=== PATIENT | female | born 1990 | race Caucasian/White ===

== ENCOUNTER 2018-05-19 18:41 | Emergency (ER) | payer MEDICAID, SELFPAY ==
[2018-05-19 18:48] VITALS: BP 128/83; PULSE 100; RESP 18; TEMP 37.2; O2SAT 100
--- NOTE | 2018-05-19 18:58 | W.ED.GENAD ---
Discharge Plan Disposition Patient Disposition: HOME Condition: Improving Discharge Details Chief Complaint: Sorethroat Clinical Impression: Acute streptococcal pharyngitis Primary Care Provider: Unknown,Unknown ED Provider: Rafael Mcfarland Home Meds and New Rx's Prescriptions: New penicillin V potassium 500 mg tablet 500 mg PO TID 10 Days Qty: 30 RF: 0 No Action vit 93-iron fum-folic [ Formula] 1 EACH tablet 1 ea PO DAILY RF: 0 clonazepam 0.5 mg tablet 0.25 mg PO BID PRN (Reason: anxiety) Qty: 20 RF: 0 Discharge Instructions Instructions: Pharyngitis (ED) Additional Instructions: Small, frequent sips of fluids to maintain hydration. Penicillin as prescribed. Tylenol and/or ibuprofen as needed for discomfort. Return if your symptoms worsen, you are unable to swallow, or any other acute concern Medical Decision Making 27-year-old female presents with 2 days of sore throat. She is afebrile, tolerating liquids and solids by mouth, no change to voice or drooling. Her rapid strep test is positive. Will treat with a course of penicillin. She may continue to breast-feed. Stable for discharge to home HPI General Mode of arrival: ambulatory. Date/Time Provider Initiated Documentation: 05/19/18 18:48. Limitations to Documentation: no limitations. Information obtained by: patient. History of Present Illness 27 year old F presents to the emergency department with the chief complaint of Sore throat times 2-day. No change to voice, no, described as moderate, Quality is described as aching, and is localized to the neck. Patient reports no radiation. Patient started experiencing this day(s) and it has been constant. No relieving factors improve symptom(s), No exacerbating factors reported . Patient notes denies fever/chills and shortness of breath. Related Data Home Medications Medication Instructions Recorded Confirmed vit 93-iron fum-folic 1 ea PO DAILY 01/05/17 05/19/18 [ Formula] clonazepam 0.5 mg tablet 0.25 mg PO BID PRN #20 tab 04/28/18 05/19/18 penicillin V potassium 500 mg PO TID 10 Days #30 tab 05/19/18 Previous Rx's Medication Instructions Recorded clonazepam 0.5 mg tablet 0.25 mg PO BID PRN #20 tab 04/28/18 penicillin V potassium 500 mg PO TID 10 Days #30 tab 05/19/18 Allergies Allergy/AdvReac Type Severity Reaction Status Date / Time cefaclor [From Ceclor] Allergy Mild unsure Unverified 05/19/18 18:55 General Stated Complaint: Sorethroat MAHENDRA: 4 Review of Systems Review of Systems 4 systems reviewed and otherwise neg PFSH Family History Mother Depression Father Essential hypertension Bipolar disorder Sister Asthma Grandfather Cerebrovascular accident Grandmother Diabetes Grandfather Prostate cancer Cancer of kidney Grandmother Parkinsons disease Medical History Anxiety (Chronic) Bipolar disorder in remission PCOS (polycystic ovarian syndrome) Social History household members: children and other details: son Akhil current occupation: works for [employer] Smoking/Tobacco Use Status: Never Surgical History section (07/27/17) Female Reproductive History Menstrual control method: copper IUCD Exam Narrative Exam Narrative: GEN: awake, alert, oriented 3. Pleasant, well groomed, interactive. HEAD: Normocephalic, atraumatic ENT: Mucous membranes moist, oropharynx with erythematous tonsillar pillars, no asymmetry. White exudate present. Uvula is midline. EYES: PERRL, EOMI NECK: Full ROM, no JEN, no menigismus CHEST/RESP: Nontender, clear to auscultation bilateral, no wheeze/rhonchi/rales CARDIOVASCULAR: RRR, no murmur, rub kwan. 2+ Rad pulse bilateral. Not tachycardic at the time of my exam ABDOMEN: Soft, nontender, no mass. +Bowel sounds EXT: Full ROM, no edema, no rash Neuro: Grossly normal neurologic exam, conversant, interactive. Psych: Speech fluent, thoughts congruent, affect normal GEN: awake, alert, oriented 3. Pleasant, well groomed, interactive. Course Vital Signs Temperature 37.2 C 05/19/18 18:48 Pulse 100 H 05/19/18 18:48 Respiratory Rate 18 05/19/18 18:48 Blood Pressure 128/83 05/19/18 18:48 Pulse Oximetry 100 05/19/18 18:48 Temperature 37.2 C 05/19/18 18:48 Temperature Source Temporal Artery Scan 05/19/18 18:48 Pulse 100 H 05/19/18 18:48 Respiratory Rate 18 05/19/18 18:48 Respiratory Effort Non-Labored 05/19/18 18:52 Blood Pressure 128/83 05/19/18 18:48 Blood Pressure Position Sitting 05/19/18 18:48 Pulse Oximetry 100 05/19/18 18:48 Oxygen Delivery Method Room Air 05/19/18 18:48 Oxygen Flow Rate 0 05/19/18 18:48 Pain Level 8 05/19/18 18:48 Lab/Test Results Lab/Test Results: POC Strep Test-LINDA(Rapid) Start: 05/19/18 18:48 Freq: .Rapid Strep Test Status: Active Protocol: Document 05/19/18 18:53 SGL (Rec: 05/19/18 18:53 SGL [id number]) Strep test-LINDA(Rapid)-POC POC-Strep test-LINDA (Rapid) Positive POC-Strep test-LINDA (Rapid) Positive
--- NOTE | 2018-05-19 19:01 | ED.GENADUL_ITS ---
Discharge Plan Disposition Patient Disposition: HOME Condition: Improving Discharge Details Chief Complaint: Sorethroat Clinical Impression: Acute streptococcal pharyngitis Primary Care Provider: Unknown,Unknown ED Provider: Rafael Mcfarland Home Meds and New Rx's Prescriptions: New penicillin V potassium 500 mg tablet 500 mg PO TID 10 Days Qty: 30 RF: 0 No Action vit 93-iron fum-folic [ Formula] 1 EACH tablet 1 ea PO DAILY RF: 0 clonazepam 0.5 mg tablet 0.25 mg PO BID PRN (Reason: anxiety) Qty: 20 RF: 0 Discharge Instructions Instructions: Pharyngitis (ED) Additional Instructions: Small, frequent sips of fluids to maintain hydration. Penicillin as prescribed. Tylenol and/or ibuprofen as needed for discomfort. Return if your symptoms worsen, you are unable to swallow, or any other acute concern Medical Decision Making 27-year-old female presents with 2 days of sore throat. She is afebrile, tolerating liquids and solids by mouth, no change to voice or drooling. Her rapid strep test is positive. Will treat with a course of penicillin. She may continue to breast-feed. Stable for discharge to home HPI General Mode of arrival: ambulatory . Date/Time Provider Initiated Documentation: 05/19/18 18:48 . Limitations to Documentation: no limitations . Information obtained by: patient . History of Present Illness 27 year old F presents to the emergency department with the chief complaint of Sore throat times 2-day. No change to voice, no, described as moderate, Quality is described as aching, and is localized to the neck. Patient reports no radiation. Patient started experiencing this day(s) and it has been constant. No relieving factors improve symptom(s), No exacerbating factors reported . Patient notes denies fever/chills and shortness of breath. Related Data Home Medications Medication Instructions Recorded Confirmed vit 93-iron fum-folic 1 ea PO DAILY 01/05/17 05/19/18 [ Formula] clonazepam 0.5 mg tablet 0.25 mg PO BID PRN #20 tab 04/28/18 05/19/18 penicillin V potassium 500 mg PO TID 10 Days #30 tab 05/19/18 Previous Rx's Medication Instructions Recorded clonazepam 0.5 mg tablet 0.25 mg PO BID PRN #20 tab 04/28/18 penicillin V potassium 500 mg PO TID 10 Days #30 tab 05/19/18 Allergies Allergy/AdvReac Type Severity Reaction Status Date / Time cefaclor [From Ceclor] Allergy Mild unsure Unverified 05/19/18 18:55 General Stated Complaint: Sorethroat MAHENDRA: 4 Review of Systems Review of Systems 4 systems reviewed and otherwise neg PFSH Family History Mother Depression Father Essential hypertension Bipolar disorder Sister Asthma Grandfather Cerebrovascular accident Grandmother Diabetes Grandfather Prostate cancer Cancer of kidney Grandmother Parkinsons disease Medical History Anxiety (Chronic) Bipolar disorder in remission PCOS (polycystic ovarian syndrome) Social History household members: children and other details: son Akhil current occupation: works for [employer] Smoking/Tobacco Use Status: Never Surgical History section (07/27/17) Female Reproductive History Menstrual control method: copper IUCD Exam Narrative Exam Narrative: GEN: awake, alert, oriented 3. Pleasant, well groomed, interactive. HEAD: Normocephalic, atraumatic ENT: Mucous membranes moist, oropharynx with erythematous tonsillar pillars, no asymmetry. White exudate present. Uvula is midline. EYES: PERRL, EOMI NECK: Full ROM, no JEN, no menigismus CHEST/RESP: Nontender, clear to auscultation bilateral, no wheeze/rhonchi/rales CARDIOVASCULAR: RRR, no murmur, rub kwan. 2+ Rad pulse bilateral. Not tachycardic at the time of my exam ABDOMEN: Soft, nontender, no mass. +Bowel sounds EXT: Full ROM, no edema, no rash Neuro: Grossly normal neurologic exam, conversant, interactive. Psych: Speech fluent, thoughts congruent, affect normal GEN: awake, alert, oriented 3. Pleasant, well groomed, interactive. Course Vital Signs Temperature 37.2 C 05/19/18 18:48 Pulse 100 H 05/19/18 18:48 Respiratory Rate 18 05/19/18 18:48 Blood Pressure 128/83 05/19/18 18:48 Pulse Oximetry 100 05/19/18 18:48 Temperature 37.2 C 05/19/18 18:48 Temperature Source Temporal Artery Scan 05/19/18 18:48 Pulse 100 H 05/19/18 18:48 Respiratory Rate 18 05/19/18 18:48 Respiratory Effort Non-Labored 05/19/18 18:52 Blood Pressure 128/83 05/19/18 18:48 Blood Pressure Position Sitting 05/19/18 18:48 Pulse Oximetry 100 05/19/18 18:48 Oxygen Delivery Method Room Air 05/19/18 18:48 Oxygen Flow Rate 0 05/19/18 18:48 Pain Level 8 05/19/18 18:48 Lab/Test Results Lab/Test Results: POC Strep Test-LINDA(Rapid) Start: 05/19/18 18: 48 Freq: .Rapid Strep Test Status: Active Protocol: Document 05/19/18 18:53 SGL (Rec: 05/19/18 18:53 SGL [id number]) Strep test-LINDA(Rapid)-POC POC-Strep test-LINDA (Rapid) Positive POC-Strep test-LINDA (Rapid) Positive
[2018-05-19 19:08] VITALS: BP 128/83; PULSE 100; RESP 18; TEMP 37.2; O2SAT 100
[2018-05-19] MEDS: Penicillin V POTASSIUM 500 MG TAB PO (19:09)
== END 2018-05-19 19:07 | disposition home or self-care (01) ==
LOC: ER 19:52
PROVIDERS: Emergency Provider Emergency Medicine; PCP Nurse Practitioner Adult Health
DX: J02.0 Streptococcal pharyngitis (principal)
CPT/HCPCS: 87880; 99283

== ENCOUNTER 2018-06-29 02:25 | Outpatient (CLI) | payer MEDICAID, SELFPAY ==
[2018-06-29 08:30] LABS: HCT 39.2 % (36.0-46.0); HGB 12.8 g/dL (12.0-15.5); Mean Corp. HGB Concentration 32.7 g/dL (32.0-36.0); Mean Corpuscular Hemoglobin 29.4 pg (27.0-33.0); Mean Corpuscular Volume 89.9 fL (80-95); Platelet Count 271 x1000/uL (130-400); RBC 4.36 m/cumm (4.00-5.20); RBC Distribution Width 13.3 % (11.7-14.6); White Blood Cell Count 7.65 k/cumm (4.4-10.8)
[2018-06-29 10:37] LABS: TSH (W/Ref FT4) 2.29 uIU/mL (0.358-3.74)
== END 2018-06-29 02:45 ==
PROVIDERS: PCP Nurse Practitioner Adult Health; Visit Provider Nurse Practitioner Family
DX: R63.5 Abnormal weight gain (principal); F41.9 Anxiety disorder, unspecified; R07.89 Other chest pain; R59.0 Localized enlarged lymph nodes
CPT/HCPCS: 36415; 85027; 84443

== ENCOUNTER 2018-09-21 15:15 | Emergency (ER) | payer OTHER, SELFPAY ==
[2018-09-21] VITALS (11 sets, daily range): BP systolic 122–143; BP diastolic 68–78; PULSE 84–112; RESP 14–25; TEMP 36.8–37.2; O2SAT 98–100
--- NOTE | 2018-09-21 15:23 | W.ED.GENAD ---
Discharge Plan Disposition Patient Disposition: HOME Discharge Details Chief Complaint: Chest Pain Clinical Impression: Chest pain, Mediastinal abnormality, Hypokalemia Primary Care Provider: Leatha Briseno ED Provider: Peter Chowdary Home Meds and New Rx's Prescriptions: No Action No Known Home Meds RF: 0 Discharge Instructions Instructions: Chest Pain (ED), Hypokalemia (ED) Additional Instructions: Please rest at home over the next few days. No exertional activities until cleared by a healthcare provider. You should have a stress test performed as soon as possible and ideally within the next 72 hours. Please contact your primary care physician to arrange follow-up. Return to the ER for any worsening or new concerning symptoms. Stand Alone Forms: Work Release Referrals: Leatha Briseno, [employer] [Primary Care Provider] - Medical Decision Making 15:27 --28-year-old female, otherwise healthy, presents with severe chest pain. Chest pain worse with movement and pleuritic in nature. Tachycardic. Saturating well and no respiratory. Screening ECG reviewed and interpreted by me: Sinus tachycardia 105 bpm, normal axis, S1 every 3 T3 are present. Plan to check troponin. Consider PE: Moderate Wells criteria. Plan to obtain CT of the chest. 18:00 --initial labs reviewed and troponin negative. CT of the chest interpreted by radiology: IMPRESSION: 1. Soft tissue attenuation in the anterior mediastinum greater than expected for age. Lymphoma or possible thymoma not excludable. 2. No evidence for pulmonary embolus. Results were reviewed with the patient. Patient advised to followup with pcp re: soft tissue attenuation noted on CT. Patient reassessed and feeling better. Plan for delta trop. 19:45 -- Hypokalemia noted - treated with oral kdur. Second delta trop negative. Patient reassessed and improved. HR improved. I had a discussion with the patient about results. Plan is to have her follow-up with her primary care physician. Outpatient stress test was ordered to expedite outpatient treatment. Disposition decision was made weighing the risks and benefits of hospitalization versus outpatient treatment, the risk for further decompensation, and the patient's wishes. The patient was stable and requested discharge. Prior to discharge, my usual and customary return precautions were reviewed with the patient - this included follow-up instructions and reason to return to the emergency department if condition worsens, does not improve as expected, or other new concerns arise. HPI General Mode of arrival: EMS. Date/Time Provider Initiated Documentation: 09/21/18 15:21. Limitations to Documentation: no limitations. Information obtained by: patient and EMS. HPI Narrative: 28-year-old female presents with chief complaint of chest pain. Patient notes around 3 PM today she had sudden onset of chest pain. Pain started while she was at rest at work. Pain localized to anterior chest. It initially felt like someone was sitting on her chest and then became more of a stabbing sensation. Pain resolved and then returned shortly thereafter. Pain has persisted. Pain is worse with certain positions including lifting her left arm above her head. Pain is also worse when she takes a deep breath or coughs. Patient has no associated leg swelling or calf pain. No shortness of breath. Patient did experience diaphoresis and felt lightheaded with the onset of her pain. Related Data Home Medications Medication Instructions Recorded Confirmed Unknown [No Known Home Meds] 09/21/18 09/21/18 Allergies Allergy/AdvReac Type Severity Reaction Status Date / Time cefaclor [From Ceclor] Allergy Mild unsure Unverified 08/22/18 14:25 General Stated Complaint: Chest Pain MAHENDRA: 2 Review of Systems Review of Systems All systems reviewed & are unremarkable except as noted in HPI and below Cardiovascular Reports chest pain, Reports diaphoresis, Reports lightheadedness and Denies dyspnea Respiratory Denies dyspnea PFSH Medical History Anxiety (Chronic) Bipolar disorder in remission PCOS (polycystic ovarian syndrome) Surgical History section (07/27/17) Family History Mother Depression Father Essential hypertension Bipolar disorder Sister Asthma Grandfather Stroke Grandmother Diabetes Grandfather Prostate cancer Cancer of kidney Grandmother Parkinsons disease Social History Smoking/Tobacco Use Status: Never Drug use: Never Household members: children and other Details: son Akhil current occupation: works for [employer] Do you feel safe at home: Yes Do you feel safe in your relationship?: Yes Female Reproductive History Menstrual control method: copper IUCD Exam Const General: cooperative and no acute distress HENMT Head: normocephalic Mouth: moist mucous membranes Eyes Conjunctivae: normal conjunctivae Sclera: normal sclerae EOM: EOM intact bilaterally Neck Neck: trachea midline and supple Chest Chest: tenderness (left anterior chest) Resp Auscultation: clear to auscultation bilaterally, no rales, no rhonchi and no wheezes Cardio Jugular venous pressure: no JVD Rate: tachycardic Rhythm: regular rhythm Heart Sounds: no gallops, no murmurs and no rubs GI Palpation: soft, not firm, no guarding, no masses, not rigid and nontender Skin General skin exam: no rashes or lesions noted Neuro General: alert, awake and tone normal Extrem General: no edema Psych Appearance: grossly normal Mental Status: mental status grossly normal Speech and Movement: speech and movement normal Course Vital Signs Temperature 36.8 C 09/21/18 15:17 Pulse 108 H 09/21/18 15:17 Respiratory Rate 14 09/21/18 15:17 Blood Pressure 143/78 H 09/21/18 15:17 Pulse Oximetry 99 09/21/18 15:17 Temperature 36.8 C 09/21/18 15:17 Temperature Source Skin 09/21/18 15:17 Pulse 108 H 09/21/18 15:17 Respiratory Rate 14 09/21/18 15:17 Blood Pressure 143/78 H 09/21/18 15:17 Blood Pressure Position Sitting 09/21/18 15:17 Pulse Oximetry 99 09/21/18 15:17 Oxygen Delivery Method Room Air 09/21/18 15:17 Oxygen Flow Rate 0 09/21/18 15:17 Pain Level 8 09/21/18 15:17
--- NOTE | 2018-09-21 15:26 | ED.GENADUL_ITS ---
Discharge Plan Disposition Patient Disposition: HOME Discharge Details Chief Complaint: Chest Pain Clinical Impression: Chest pain, Mediastinal abnormality, Hypokalemia Primary Care Provider: Leatha Briseno ED Provider: Peter Chowdary Home Meds and New Rx's Prescriptions: No Action No Known Home Meds RF: 0 Discharge Instructions Instructions: Chest Pain (ED), Hypokalemia (ED) Additional Instructions: Please rest at home over the next few days. No exertional activities until cleared by a healthcare provider. You should have a stress test performed as soon as possible and ideally within the next 72 hours. Please contact your primary care physician to arrange follow-up. Return to the ER for any worsening or new concerning symptoms. Stand Alone Forms: Work Release Referrals: Leatha Briseno, [employer]PER[employer] [Primary Care Provider] - Medical Decision Making 15:27 --28-year-old female, otherwise healthy, presents with severe chest pain. Chest pain worse with movement and pleuritic in nature. Tachycardic. Saturating well and no respiratory. Screening ECG reviewed and interpreted by me: Sinus tachycardia 105 bpm, normal axis, S1 every 3 T3 are present. Plan to check troponin. Consider PE: Moderate Wells criteria. Plan to obtain CT of the chest. 18:00 --initial labs reviewed and troponin negative. CT of the chest interpreted by radiology: IMPRESSION: 1. Soft tissue attenuation in the anterior mediastinum greater than expected for age. Lymphoma or possible thymoma not excludable. 2. No evidence for pulmonary embolus. Results were reviewed with the patient. Patient advised to followup with pcp re: soft tissue attenuation noted on CT. Patient reassessed and feeling better. Plan for delta trop. 19:45 -- Hypokalemia noted - treated with oral kdur. Second delta trop negative. Patient reassessed and improved. HR improved. I had a discussion with the patient about results. Plan is to have her follow- up with her primary care physician. Outpatient stress test was ordered to expedite outpatient treatment. Disposition decision was made weighing the risks and benefits of hospitalization versus outpatient treatment, the risk for further decompensation, and the patient's wishes. The patient was stable and requested discharge. Prior to discharge, my usual and customary return precautions were reviewed with the patient - this included follow-up instructions and reason to return to the emergency department if condition worsens, does not improve as expected, or other new concerns arise. HPI General Mode of arrival: EMS . Date/Time Provider Initiated Documentation: 09/21/18 15:21 . Limitations to Documentation: no limitations . Information obtained by: patient and EMS . HPI Narrative: 28-year-old female presents with chief complaint of chest pain. Patient notes around 3 PM today she had sudden onset of chest pain. Pain started while she was at rest at work. Pain localized to anterior chest. It initially felt like someone was sitting on her chest and then became more of a stabbing sensation. Pain resolved and then returned shortly thereafter. Pain has persisted. Pain is worse with certain positions including lifting her left arm above her head. Pain is also worse when she takes a deep breath or coughs. Patient has no associated leg swelling or calf pain. No shortness of breath. Patient did experience diaphoresis and felt lightheaded with the onset of her pain. Related Data Home Medications Medication Instructions Recorded Confirmed Unknown [No Known Home Meds] 09/21/18 09/21/18 Allergies Allergy/AdvReac Type Severity Reaction Status Date / Time cefaclor [From Ceclor] Allergy Mild unsure Unverified 08/22/18 14:25 General Stated Complaint: Chest Pain MAHENDRA: 2 Review of Systems Review of Systems All systems reviewed & are unremarkable except as noted in HPI and below Cardiovascular Reports chest pain, Reports diaphoresis, Reports lightheadedness and Denies dyspnea Respiratory Denies dyspnea PFSH Medical History Anxiety (Chronic) Bipolar disorder in remission PCOS (polycystic ovarian syndrome) Surgical History section (07/27/17) Family History Mother Depression Father Essential hypertension Bipolar disorder Sister Asthma Grandfather Stroke Grandmother Diabetes Grandfather Prostate cancer Cancer of kidney Grandmother Parkinsons disease Social History Smoking/Tobacco Use Status: Never Drug use: Never Household members: children and other Details: son Akhil current occupation: works for [employer] Do you feel safe at home: Yes Do you feel safe in your relationship?: Yes Female Reproductive History Menstrual control method: copper IUCD Exam Const General: cooperative and no acute distress HENMT Head: normocephalic Mouth: moist mucous membranes Eyes Conjunctivae: normal conjunctivae Sclera: normal sclerae EOM: EOM intact bilaterally Neck Neck: trachea midline and supple Chest Chest: tenderness (left anterior chest) Resp Auscultation: clear to auscultation bilaterally, no rales, no rhonchi and no wheezes Cardio Jugular venous pressure: no JVD Rate: tachycardic Rhythm: regular rhythm Heart Sounds: no gallops, no murmurs and no rubs GI Palpation: soft, not firm, no guarding, no masses, not rigid and nontender Skin General skin exam: no rashes or lesions noted Neuro General: alert, awake and tone normal Extrem General: no edema Psych Appearance: grossly normal Mental Status: mental status grossly normal Speech and Movement: speech and movement normal Course Vital Signs Temperature 36.8 C 09/21/18 15:17 Pulse 108 H 09/21/18 15:17 Respiratory Rate 14 09/21/18 15:17 Blood Pressure 143/78 H 09/21/18 15:17 Pulse Oximetry 99 09/21/18 15:17 Temperature 36.8 C 09/21/18 15:17 Temperature Source Skin 09/21/18 15:17 Pulse 108 H 09/21/18 15:17 Respiratory Rate 14 09/21/18 15:17 Blood Pressure 143/78 H 09/21/18 15:17 Blood Pressure Position Sitting 09/21/18 15:17 Pulse Oximetry 99 09/21/18 15:17 Oxygen Delivery Method Room Air 09/21/18 15:17 Oxygen Flow Rate 0 09/21/18 15:17 Pain Level 8 09/21/18 15:17
[2018-09-21] MEDS: Normal Saline 1,000 ML 1000 ML IV ×2 (15:50→18:05)
[2018-09-21 16:06] LABS: Abs Immature Grans 0.01 k/cumm (0.0-0.09); Absolute Basophil Count 0.02 k/cumm (0.0-0.2); Absolute Eosinophil Count 0.07 k/cumm (0.0-0.7); Absolute Lymphocyte Count 1.79 k/cumm (1.2-3.4); Absolute Monocyte Count 0.48 k/cumm (0.11-0.7); Absolute Neutrophil Count 5.23 k/cumm (1.2-6.7); Basophils % 0.3; Eosinophils % 0.9; HCT 40.4 % (36.0-46.0); HGB 13.3 g/dL (12.0-15.5); Immature Grans % 0.1; Lymphocytes % 23.6; Mean Corp. HGB Concentration 32.9 g/dL (32.0-36.0); Mean Corpuscular Hemoglobin 29.2 pg (27.0-33.0); Mean Corpuscular Volume 88.8 fL (80-95); Mean Platelet Volume 10.4 fL (8.0-11.0); Monocytes % 6.3; Neutrophils % 68.8; Platelet Count 262 x1000/uL (130-400); RBC 4.55 m/cumm (4.00-5.20); RBC Distribution Width 13.5 % (11.7-14.6)
[2018-09-21 16:23] LABS: ALT 16 U/L (12-78); AST 12 U/L (15-37); Albumin 3.6 g/dL (3.4-5.0); Alkaline Phosphatase 88 U/L (46-116); Anion Gap 9.4 mmol/L (3-11); BUN 13 mg/dL (7-18); Bilirubin, Total 0.3 mg/dL (0.2-1.0); CO2 26.6 mmol/L (21.0-32.0); CREATININE 0.88 mg/dL (0.55-1.02); Calcium 8.8 mg/dL (8.5-10.1); Chloride 103 mmol/L (98-107); Glucose 80 mg/dL (70-100); Magnesium 1.8 mg/dL (1.8-2.4); Potassium 3.3 mmol/L (3.5-5.1); Sodium 139 mmol/L (136-145); Total Protein 7.6 g/dL (6.4-8.2)
[2018-09-21 16:25] LABS: Troponin I < 0.02 ng/mL (0.00-0.06)
[2018-09-21 16:42] LABS: D-Dimer 225 ng/mlFEU (<500)
--- NOTE | 2018-09-21 17:05 | DI.CT_ITS ---
SYMPTOM/DIAGNOSIS: CHEST PAIN, TACHYCARDIA PE CHEST CT: CT angiography was performed with multi slice acquisition and multi planar and 3D reconstruction. CT scan of the chest was performed according to the pulmonary emboli protocol. There is no evidence of a pulmonary embolus. There is significant artifact seen involving the pulmonary artery and thoracic aorta but no definite evidence of thoracic aortic dissection is seen. Heart size is within normal limits. No significant pericardial effusion is seen. No evidence of right ventricular dysfunction is present. No thoracic adenopathy, pleural effusion or pneumothorax is identified. There is soft tissue seen in the anterior mediastinum. This may represent residual thymic tissue. Anterior mediastinal mass cannot be excluded. The lungs are clear. The bones are intact. IMPRESSION: No evidence of a pulmonary embolus. Soft tissue attenuation material in the anterior mediastinum. This may represent residual thymic tissue. Anterior mediastinal mass cannot be excluded. Follow up as clinically appropriate.
[2018-09-21] MEDS: Omnipaque 350 MG/ML 100 ML BTL IJ (17:06)
[2018-09-21] MEDS: Normal Saline Flush 10 ML SYR IVP (17:07)
--- NOTE | 2018-09-21 17:23 | DI.VRAD_ITS ---
EXAM: CT Angiography Chest With Contrast EXAM DATE/TIME: 09/21/2018 3:29 PM CLINICAL HISTORY: 28 years old, female; Signs and symptoms; Other: Pain in chest, tachycardic TECHNIQUE: Imaging protocol: Axial computed tomographic angiography images of the chest with intravenous contrast using CT angiography protocol. Coronal and sagittal reformatted images were created and reviewed. 3D rendering: MIP reconstructed images were created and reviewed. Radiation optimization: All CT scans at this facility use at least one of these dose optimization techniques: automated exposure control; mA and/or kV adjustment per patient size (includes targeted exams where dose is matched to clinical indication); or iterative reconstruction. Contrast material: Omnipaque 350 Contrast volume: 100 ml Contrast route: IV COMPARISON: No relevant prior studies available. FINDINGS: Pulmonary arteries: Normal. No pulmonary emboli. Aorta: Normal. No aortic aneurysm. No aortic dissection. Lungs: Normal. No consolidation. No masses. Pleural space: Normal. No pneumothorax. No pleural effusion. Heart: Normal. No cardiomegaly. No pericardial effusion. Mediastinum: There is some soft tissue attenuation in the anterior mediastinum measuring up to 2.5 cm. Lymph nodes: Unremarkable. No enlarged lymph nodes. Bones/joints: Unremarkable. No acute fracture. Soft tissues: Unremarkable. IMPRESSION: 1. Soft tissue attenuation in the anterior mediastinum greater than expected for age. Lymphoma or possible thymoma not excludable. 2. No evidence for pulmonary embolus. COMMENT: Preliminary interpretation is based on receipt of 306 image(s). A final report will be issued subsequently. Dictated and Authenticated by: Blanca Reza MD. Ordering:JENNIFER Green MD
[2018-09-21] MEDS: Ketorolac 15 MG/ML VIAL IVP (18:09)
[2018-09-21] MEDS: Potassium Chloride 20 MEQ TABCR 40 MEQ PO (18:09)
[2018-09-21 19:32] LABS: Troponin I < 0.02 ng/mL (0.00-0.06)
== END 2018-09-21 20:35 | disposition home or self-care (01) ==
PROVIDERS: Emergency Provider Student in an Organized Health Care Education/Training Program; PCP Nurse Practitioner Family
DX: R07.89 Other chest pain (principal); R00.0 Tachycardia, unspecified; R91.8 Other nonspecific abnormal finding of lung field; E87.6 Hypokalemia
CPT/HCPCS: 36415; 71275; 80053; 93005; 96361; 96374; 99285; 83735; 84484; 85025; 85379; 93010; J1885; J3490

== ENCOUNTER 2018-09-25 00:04 | Outpatient (CLI) | payer OTHER, SELFPAY ==
--- NOTE | 2018-09-25 14:00 | ETT_ITS ---
*[facility]* *[facility]* [address] [place] [address] Stress Electrocardiography Maxx protocol Date of study: 09/25/2018 *PATIENT PRESENTATION* Height: 160cm (63in) Blood Pressure: Weight: 90.9kg (200lb) BSA: 2.05m^2 Referring physician: Peter Chowdary Ordering physician: Peter Chowdary Impressions: Normal study after maximal exercise. Summary: 1. Stress ECG conclusions: The stress ECG is negative. Munoz treadmill score: 5. This score predicts a low risk of cardiac events. Indication: R07.9. History: REASON FOR VISIT: PT ARRIVES TODAY WITH A 7 OUT OF 10 CHEST DISCOMFORT SHE DESCRIBES A CONSTANT CHEST HEAVINESS. SHE STATES SHE CAN'T GET A GOOD BREATH IN. SHE REPORTS CHEST DISCOMFORT IS LESSENED WHEN SHE LEANS FORWARD. SHE REPORTS THESE SYMPTOMS STARTED LAST TUESDAY, IT IS CONSTANT IN NATURE AND SOMETIMES IS WORSENED WHEN SHE LIFTS HER ARMS UP, IT OCCASIONALLY WILL RADIATE TO HER LEFT ARM AND HER LEFT SIDE OF HER NECK. SHE WAS SEEN IN THE ED ON 09/21/18, SHE REPORTS SHE WAS TOLD SHE DOES NOT HAVE A BLOOD CLOT SHE REPORTS IBUPROFEN HELPS ALLEVIATE HER SYMPTOMS, SHE HAS NOT TAKING ANY IBUPROFEN TODAY. Risk factors: Family history of coronary artery disease. Obesity. ALLERGIES: NO KNOWN ALLERGIES. MEDICATIONS: IBUPROFEN PRN. Protocol: Maxx protocol. Baseline ECG: SINUS RHYTHM. HR 85 BPM. Stress protocol: + +---+ + !Stage !HR !BP (mmHg) ! + +---+ + !Baseline supine !85 !122/72 (89) ! + +---+ + !Baseline standing !94 !108/70 (83) ! + +---+ + !Stage I; 1.7mph, 10degrees; 3 min !129!130/70 (90) ! + +---+ + !Stage II; 2.5mph, 12degrees; 3 min!143!140/80 (100)! + +---+ + !Peak stress !171! ! + +---+ + !Recovery; 1 min !146!150/80 (103)! + +---+ + !Recovery; 3 min !108!142/60 (87) ! + +---+ + !Recovery; 6 min !103!112/64 (80) ! + +---+ + * Stress results: Maximal heart rate during stress was 171bpm (89% of maximal predicted heart rate). The maximal predicted heart rate was 193bpm. The rate-pressure product for the peak heart rate and blood pressure was 37417cu Hg/min. Stress ECG: TREADMILL PORTION OF STRESS TEST ENDED IN 9 MINUTES AND 1 SECOND DUE TO SHORTNESS OF BREATH, CHEST HEAVINESS AND NECK PAINS. NORMAL HEART RATE AND BLOOD PRESSURE RESPONSE TO EXERCISE. MAX HR = 171 % OF TARGET = 88 NO ECTOPY APPROXIMATE METS ACHIEVED = 10.16 MIDSTERNAL CHEST HEAVINESS AT BASELINE AND THROUGHOUT TESTING. NECK PAIN IN ADDITION TO THE BASELINE CHEST HEAVINESS REPORTED AT PEAK EXERCISE. BRIEF SHARP EPISODE OF MIDSTERNAL CHEST PAIN AT 3 MINUTES RECOVERY NECK PAIN AND SHARP CHEST PAIN SUBSIDED BY 4 MINUTES OF RECOVERY TIME. CHEST HEAVINESS REMAINED AND UNCHANGED FROM PRE-EXERCISE BASELINE. NO SIGNIFICANT ST SEGMENT CHANGES. AVERAGE FUNCTIONAL CAPACITY FOR EXERCISE. The stress ECG is negative. Munoz treadmill score: 5. This score predicts a low risk of cardiac events. Study data: Jesus Huynh MD supervised and was readily available during the procedure. This study was interpreted by [facility]. Study status: Routine. Consent: The risks, benefits, and alternatives to the procedure were explained to the patient and informed consent was obtained. Procedure: Initial setup. A baseline ECG was recorded. Surface ECG leads and manual cuff blood pressure measurements were monitored. Heart sounds: Normal. Lung sounds: Normal. Treadmill exercise testing was performed using the Maxx protocol. Study completion: The patient tolerated the procedure well and was discharged from the lab. Discharge: The patient left the laboratory in stable condition. Birthdate: Patient birthdate: 1990. Sex: Gender: female. Study date: Study date: 09/25/2018. Study time: 00:01 AM. Electronically signed by Jesus Huynh MD 09/25/2018 18:22
== END 2018-09-25 00:24 ==
PROVIDERS: PCP Nurse Practitioner Adult Health; Visit Provider Student in an Organized Health Care Education/Training Program
DX: R07.9 Chest pain, unspecified (principal); E66.9 Obesity, unspecified; Z82.49 Family history of ischemic heart disease and other diseases of the circulatory system
CPT/HCPCS: 93017

== ENCOUNTER 2018-09-28 17:48 | Outpatient (REF) | payer OTHER, SELFPAY ==
[2018-09-28 20:55] LABS: Anion Gap 7.7 mmol/L (3-11); BUN 11 mg/dL (7-18); CO2 27.3 mmol/L (21.0-32.0); CREATININE 0.73 mg/dL (0.55-1.02); Calcium 8.8 mg/dL (8.5-10.1); Chloride 104 mmol/L (98-107); Glucose 95 mg/dL (70-100); Potassium 4.5 mmol/L (3.5-5.1); Sodium 139 mmol/L (136-145)
== END 2018-09-28 18:08 ==
LOC: LBN 17:48
PROVIDERS: Visit Provider Nurse Practitioner Family
DX: E87.6 Hypokalemia (principal)
CPT/HCPCS: 80048

== ENCOUNTER 2019-05-31 16:29 | Outpatient (REF) | payer OTHER, SELFPAY | END 2019-05-31 16:49 | LOC: LBN 16:29 | PROVIDERS: PCP Nurse Practitioner Family; Visit Provider Advanced Practice Midwife | DX: N89.8 Other specified noninflammatory disorders of vagina (principal); R35.0 Frequency of micturition | CPT/HCPCS: 87086; 87480; 87510; 87660 ==

== ENCOUNTER 2019-08-02 18:28 | Emergency (ER) | payer OTHER, SELFPAY ==
[2019-08-02 18:40] VITALS: BP 123/74; PULSE 107; RESP 18; TEMP 36.5; O2SAT 97
[2019-08-02] MEDS: Ondansetron 4 MG/2 ML VIAL IVP (19:01)
[2019-08-02 19:06] LABS: Abs Immature Grans 0.03 k/cumm (0.0-0.09); Absolute Eosinophil Count 0.04 k/cumm (0.0-0.7); Absolute Monocyte Count 0.71 k/cumm (0.11-0.7); Basophils % 0.1; Eosinophils % 0.3; HCT 44.4 % (36.0-46.0); HGB 14.9 g/dL (12.0-15.5); Immature Grans % 0.2 %; Lymphocytes % 7.6; Mean Corp. HGB Concentration 33.6 g/dL (32.0-36.0); Mean Corpuscular Hemoglobin 29.8 pg (27.0-33.0); Mean Corpuscular Volume 88.8 fL (80-95); Mean Platelet Volume 10.2 fL (8.0-11.0); Monocytes % 5.3; Neutrophils % 86.5; Platelet Count 282 x1000/uL (130-400); RBC Distribution Width 13.1 % (11.7-14.6); White Blood Cell Count 13.34 k/cumm (4.4-10.8)
[2019-08-02 19:08] LABS: Absolute Basophil Count 0.01 k/cumm (0.0-0.2); Absolute Lymphocyte Count 1.01 k/cumm (1.2-3.4); Absolute Neutrophil Count 11.54 k/cumm (1.2-6.7)
[2019-08-02] MEDS: Normal Saline 1,000 ML 1000 ML IV (19:15)
[2019-08-02 19:20] LABS: ALT 20 U/L (14-59); AST 14 U/L (15-37); Albumin 4.3 g/dL (3.4-5.0); Alkaline Phosphatase 77 U/L (46-116); Anion Gap 13.7 mmol/L (3-11); BUN 13 mg/dL (7-18); Bilirubin, Total 0.6 mg/dL (0.2-1.0); CO2 23.3 mmol/L (21.0-32.0); CREATININE 0.91 mg/dL (0.55-1.02); Calcium 8.9 mg/dL (8.5-10.1); Chloride 103 mmol/L (98-107); Glucose 114 mg/dL (74-106); Lipase 111 U/L (73-393); Potassium 3.6 mmol/L (3.5-5.1); Sodium 140 mmol/L (136-145); Total Protein 8.5 g/dL (6.4-8.2)
--- NOTE | 2019-08-02 19:24 | W.ED.GENAD ---
Discharge Plan Disposition Patient Disposition: HOME Condition: Good Discharge Details Chief Complaint: Nausea/Vomit/Diar Clinical Impression: Viral gastroenteritis Primary Care Provider: Rochelle Martin ED Provider: Nicolas Rutledge Home Meds and New Rx's Prescriptions: New ondansetron HCl [Zofran] 4 mg tablet 4 mg PO Q8H Qty: 12 RF: 0 dicyclomine 10 mg capsule 10 mg PO TID Qty: 20 RF: 0 No Action ParaGard T 380A 380 square mm intrauterine device 1 device IY ONCE RF: 0 Discharge Instructions Instructions: Gastroenteritis (ED) Additional Instructions: I Do believe you have a viral gastroenteritis. Please drink 10 to 12 cups of water per day, gradually transition to easy foods of rice, bananas, applesauce and crackers. Take the Zofran as needed for vomiting. If you notice any worsening of your symptoms, or any new symptoms such as vomiting, diarrhea, fever, chills, shortness of breath, chest pain, numbness, weakness, or fainting , please return immediately to the emergency department for reevaluation. Please follow up with your primary care provider as soon as possible for reassessment and reevaluation. As always, it was a pleasure participating in your medical care today. Referrals: Rochelle Martin [Primary Care Provider] - Medical Decision Making 29-year-old female with no significant past medical history who presents today for evaluation of nausea vomiting and diarrhea present for the last 24 hours. Identical to the symptoms that her coworkers have had. And very remarkably similar to the multiple other patients it was had today with identical symptomatology. Exam demonstrates no signs of an acute surgical abdomen, no clinical symptoms of acute appendicitis, gallbladder pathology, or significant pancreatitis. Will treat with Zofran, gently rehydrate, and reassess. Signs and symptoms at this time are consistent with a viral gastroenteritis. 8 PM Patient is feeling much better, negative, labs relatively unremarkable aside from mild dehydration. Signs and symptoms clinically consistent with viral gastroenteritis. She is received 500 cc and feels ready to go and would like to go home. I discussed waiting longer for the fluids to finish but she states that she is fine would like to go now. We will give Bentyl and Zofran for home use. Discussed red flags which to return. Repeat abdominal exam shows no clinical evidence of an acute surgical abdomen. I have extensively reviewed the treatment plan and discharge instructions with the patient and their family. I have addressed all patient concerns at this time. The patient and family was made aware of what symptoms to monitor for that would warrant a return to the emergency department. Discussed the plan with the patient and family, they demonstrate verbal understanding and agreement with our assessment and plan at this time. HPI General Date/Time Provider Initiated Documentation: 08/02/19 18:31. HPI Narrative: This is a 29-year-old female with no significant past medical history who presents today for evaluation of nausea vomiting and diarrhea. She has had the symptoms for last 24 hours, similar to her other coworkers and identical to the multiple other patients who is seen today. She admits to mild generalized crampiness, vomiting and diarrhea with no foreign travel or recent antibiotic use. No blood in her stool or vomit. She denies any other complaints at this time. No other modifying factors. Related Data Home Medications Medication Instructions Recorded Confirmed copper 380 square mm intrauterine 1 device IY ONCE 05/31/19 08/02/19 device dicyclomine 10 mg PO TID #20 cap 08/02/19 ondansetron HCl [Zofran] 4 mg PO Q8H #12 tab 08/02/19 Previous Rx's Medication Instructions Recorded dicyclomine 10 mg PO TID #20 cap 08/02/19 ondansetron HCl [Zofran] 4 mg PO Q8H #12 tab 08/02/19 Allergies Allergy/AdvReac Type Severity Reaction Status Date / Time cefaclor [From Ceclor] Allergy Mild unsure Unverified 08/02/19 18:45 General Stated Complaint: Nausea/Vomit/Diar MAHENDRA: 3 Review of Systems All systems reviewed & are unremarkable except as noted in HPI and below PFSH Social History Smoking/Tobacco Use Status: Never Drug use: Never Household members: children and other Details: son Akhil current occupation: works for [employer] Do you feel safe at home: Yes Do you feel safe in your relationship?: Yes Female Reproductive History Menstrual control method: copper IUCD History History 3 Para 1 Hx # Term Pregnancies Multiple births Hx # Pregnancies Ectopic pregnancies AB induced 1 Hx Number of Living Children AB spontaneous 1 Exam Narrative Exam Narrative: 1.Const: Well-nourished, Well-developed, appearing stated age 2.Eyes: PERRL, no conjunctival injection, and symmetrical lids. 3.ENT: Atraumatic external nose and ears. Dry MM. Neck: Symmetric, trachea midline, No thyromegaly. 4.CVS: +S1/S2, No murmurs or gallops. Peripheral pulses 2+ and equal in all extremities. Brisk capillary refill in all extremities. 5.RESP: Unlabored respiratory effort. Clear to auscultation bilaterally. No wheezes rales or rhonchi 6.GI: Soft, Nontender/Nondistended, No hepatosplenomegaly. No guarding or rebound. No pain at McBurney's point, negative Boone sign. 7.MSK: Normocephalic/Atraumatic, Extremities w/o deformity or ttp No cyanosis or clubbing, Normal movement of all extremities 8.Skin: Warm, Dry. No rashes or lesions. 9.Neuro: private duty aide II-XII grossly intact. Sensation grossly intact, no focal neurologic deficits. 10.Psych: (AAO) x3. Appropriate mood and affect Course Vital Signs Vital signs: Vital Signs Temperature 36.5 C 08/02/19 18:40 Pulse 107 H 08/02/19 18:40 Respiratory Rate 18 08/02/19 18:40 Blood Pressure 123/74 08/02/19 18:40 Pulse Oximetry 97 08/02/19 18:40 Temperature 36.5 C 08/02/19 18:40 Temperature Source Skin 08/02/19 18:40 Pulse 107 H 08/02/19 18:40 Respiratory Rate 18 08/02/19 18:40 Respiratory Effort Non-Labored 08/02/19 18:44 Blood Pressure 123/74 08/02/19 18:40 Pulse Oximetry 97 08/02/19 18:40 Oxygen Delivery Method Room Air 08/02/19 18:40 Oxygen Flow Rate 0 08/02/19 18:40 Pain Level 8 08/02/19 18:40 Comment 08/02/19 18:40 Lab/Test Results Lab/Test Results: Laboratory Tests Range/Units 08/02/19 08/02/19 18:56 18:56 WBC (4.4-10.8) k/cumm 13.34 H RBC (4.00-5.20) m/cumm 5.00 Hgb (12.0-15.5) g/dL 14.9 Hct (36.0-46.0) % 44.4 MCV (80-95) fL 88.8 MCH (27.0-33.0) pg 29.8 MCHC (32.0-36.0) g/dL 33.6 RDW (11.7-14.6) % 13.1 Plt Count (130-400) x1000/uL 282 MPV (8.0-11.0) fL 10.2 Immature Gran % % 0.2 Neutrophils % 86.5 Lymphocytes % 7.6 Monocytes % 5.3 Eosinophils % 0.3 Basophils % 0.1 Absolute Neutrophils (1.2-6.7) k/cumm 11.54 H Absolute Lymphocytes (1.2-3.4) k/cumm 1.01 L Absolute Monocytes (0.11-0.7) k/cumm 0.71 H Absolute Eosinophils (0.0-0.7) k/cumm 0.04 Absolute Basophils (0.0-0.2) k/cumm 0.01 Sodium (136-145) mmol/L 140 Potassium (3.5-5.1) mmol/L 3.6 Chloride (98-107) mmol/L 103 Carbon Dioxide (21.0-32.0) mmol/L 23.3 Anion Gap (3-11) mmol/L 13.7 H BUN (7-18) mg/dL 13 Creatinine (0.55-1.02) mg/dL 0.91 Estimated GFR/1.73 m2 (mL/min/1.73m2) >= 60.00 Glucose (74-106) mg/dL 114 H Calcium (8.5-10.1) mg/dL 8.9 Total Bilirubin (0.2-1.0) mg/dL 0.6 AST (15-37) U/L 14 L ALT (14-59) U/L 20 Alkaline Phosphatase (46-116) U/L 77 Total Protein (6.4-8.2) g/dL 8.5 H Albumin (3.4-5.0) g/dL 4.3 Lipase (73-393) U/L 111
[2019-08-02] MEDS: Dicyclomine 20 MG TAB PO (19:52)
[2019-08-02 20:08] VITALS: BP 117/64; PULSE 85; TEMP 36.8; O2SAT 100
== END 2019-08-02 20:10 | disposition home or self-care (01) ==
PROVIDERS: Emergency Provider Student in an Organized Health Care Education/Training Program; PCP Nurse Practitioner Family
DX: A08.4 Viral intestinal infection, unspecified (principal)
CPT/HCPCS: 36415; 80053; 81025; 83690; 96361; 96374; 99284; 85025; J2405

== ENCOUNTER 2019-09-11 16:40 | Outpatient (REF) | payer OTHER, SELFPAY ==
[2019-09-17 09:56] LABS: COVID-19 RT-PCR Result Not Detected (NotDetected)
== END 2019-09-11 17:00 ==
LOC: NCHCN 16:40
PROVIDERS: PCP Nurse Practitioner Family; Visit Provider Nurse Practitioner Family
DX: Z20.828 Contact with and (suspected) exposure to other viral communicable diseases (principal); R05 Cough
CPT/HCPCS: U0003

== ENCOUNTER 2020-02-06 02:06 | Outpatient (CLI) | payer OTHER, SELFPAY ==
--- NOTE | 2020-02-06 | DI.RAD_ITS ---
EXAM: XR KNEE RT 3V AP,LAT,RISHABH CLINICAL HISTORY: KNEE PAIN,M25.569. TECHNIQUE: 2D digital imaging was performed. COMPARISON: No exams were available for comparison FINDINGS: BONES: No acute fracture is present. No bony destructive lesion is seen. JOINTS: The knee is normally aligned. Small joint effusion. SOFT TISSUE: Normal. IMPRESSION: Small joint effusion. DATA REPOSITORY: RADIATION DOSE DELIVERED:
== END 2020-02-06 02:26 ==
PROVIDERS: PCP Nurse Practitioner Family; Visit Provider Internal Medicine
DX: M25.461 Effusion, right knee (principal)
CPT/HCPCS: 73562

== ENCOUNTER 2020-08-08 00:46 | Emergency (ER) | payer OTHER, SELFPAY ==
--- NOTE | 2020-08-08 00:52 | W.ED.GENAD ---
Discharge Plan Disposition Patient Disposition: HOME Condition: Good Discharge Details Clinical Impression: Pelvic pain, Back pain Primary Care Provider: Rochelle Martin ED Provider: Dick Cleveland Meds and New Rx's Prescriptions: Continued ParaGard T 380A 380 square mm intrauterine device 1 device IY ONCE RF: 0 ondansetron HCl [Zofran] 4 mg tablet 4 mg PO Q8H Qty: 12 RF: 0 dicyclomine 10 mg capsule 10 mg PO TID Qty: 20 RF: 0 Discharge Instructions Additional Instructions: Suspect symptoms related to ruptured ovarian cyst. I did speak to Dr. Tam oliva. You should receive a call in the morning for follow-up ultrasound and appointment to be seen [facility] today. Ibuprofen 600 mg 3 times a day. Return to ED if new or worsening pain, fever, vomiting. Referrals: [facility] [Provider Group] Medical Decision Making test here negative. Patient likely with pyelonephritis. Urine sent for UA and culture. Will place IV check CBC and chemistry and assuming positive urinalysis will receive dose of IV antibiotics. Bladder scan to be sure patient able to empty bladder completely and urgency related to UTI symptoms. Bladder scan was less than 10 mL post void. Urine with blood only. No evidence of infection. Culture pending. White count normal. Chemistries unremarkable. Discussed finding with patient who consented to pelvic exam. Pelvic exam done with female nurse present. Normal external female genitalia. Old blood in vaginal vault. IUD string visualized coming out of cervix. GC and Chlamydia swab done. Bimanual exam reveals diffuse tenderness involving both adnexa and uterus. Patient likely with ruptured ovarian cyst as she does report onset of pain was sudden in nature 3 days ago. Case discussed with Dr. Turcios on-call for SCIENTIFIC TECHNICAL WRITER. She will make arrangements for follow-up in the morning with ultrasound and reevaluation in [facility]. Patient instructed to continue nonsteroidal, specifically ibuprofen 600 every 8 hours. Return to ED if new or worsening pain, fever, vomiting. Lab Data Lab results reviewed: Yes I reviewed the patient's lab results. HPI General Mode of arrival: ambulatory. Date/Time Provider Initiated Documentation: 08/08/20 00:52. Limitations to Documentation: no limitations. Information obtained by: patient and RN notes reviewed. HPI Narrative: Patient presents to ED with 3 days of back pain, lower abdominal discomfort and passing reddish-brown material that she is not sure whether it urine or vaginal. Last period was 2 weeks ago. Home test negative. However she feels breast heaviness as well. In the last 7 hours of developed urgency and the need to void despite no urine being present when she voids. She has nausea but no vomiting. She has no fever or chills. She did speak to her SCIENTIFIC TECHNICAL WRITER today and was supposed to call back tomorrow to give an update. However with the onset of urgency she presents to ED tonight. Related Data Home Medications Medication Instructions Recorded Confirmed copper 380 square mm intrauterine 1 device IY ONCE 05/31/19 08/02/19 device dicyclomine 10 mg PO TID #20 cap 08/02/19 ondansetron HCl [Zofran] 4 mg PO Q8H #12 tab 08/02/19 Previous Rx's Medication Instructions Recorded dicyclomine 10 mg PO TID #20 cap 08/02/19 ondansetron HCl [Zofran] 4 mg PO Q8H #12 tab 08/02/19 Allergies Allergy/AdvReac Type Severity Reaction Status Date / Time cefaclor [From Ceclor] Allergy Mild unsure Unverified 08/02/19 18:45 General MAHENDRA: 3 Review of Systems Narrative: As documented in HPI otherwise negative as below. Const: no fever, chills, weakness Resp: no cough, SOB, pleuritic pain CV: no CP, diaphoresis, edema, syncope GI: no vomiting, diarrhea Neuro: no headache, numbness, focal weakness, confusion [facility] Medical History (Updated 08/08/20 @ 02:12 by Dick Cleveland MD) Anxiety Bipolar disorder in remission PCOS (polycystic ovarian syndrome) Surgical History section (07/27/17) 07/25/17. PC/S. Unsuccessful IOL at 42w. MKendal Landaverde. aoc/dd. Family History Mother Depression Father , car accident at age 33. Essential hypertension Bipolar disorder Sister Asthma Grandfather Stroke Grandmother Diabetes Grandfather Prostate cancer Cancer of kidney Grandmother Parkinsons disease Social History Smoking/Tobacco Use Status: Never Smoking risk assessment performed?: Yes Drug use: Never Substance use type: does not use Household members: children and other Details: son Akhil current occupation: works for [employer] Do you feel safe at home: Yes Do you feel safe in your relationship?: Yes Female Reproductive History Menstrual control method: copper IUCD History History 3 Para 1 Hx # Term Pregnancies Multiple births Hx # Pregnancies Ectopic pregnancies AB induced 1 Hx Number of Living Children AB spontaneous 1 Exam Narrative Exam Narrative: Const: WDWN female in NAD. HEENT: NC/AT. Normal facial exam. Eyes: Normal conjunctiva and sclera. Neck: Supple. Trachea midline. Lungs: Normal respiratory effort. Cor: Good radial pulses. GI: Soft and ND. No guarding or rebound. Discomfort with palpation in suprapubic area. Back: B mild CVAT Neuro: A+O x 3. Normal speech, mentation, gait. Cranial nerves II - XII grossly intact. No gross motor or sensory deficit. Ext: No C/C/E. Course Lab/Test Results Lab/Test Results: 08/08/20 00:50 Urine - Clean Catch Urine Culture - Pending
[2020-08-08 00:54] VITALS: BP 118/71; PULSE 96; RESP 18; TEMP 36.8; O2SAT 99
[2020-08-08 01:03] LABS: Bilirubin Negative (Negative); Blood Large (Negative); Clarity Clear (Clear); Glucose Negative (Negative); Ketones Negative (Negative); Leukocyte Esterase Negative (Negative); Nitrite Negative (Negative); Specific Gravity >= 1.030 (1.005-1.025); Urobilinogen 0.2 EU/dL (Up TO 0.2)
[2020-08-08 01:11] LABS: Abs Immature Grans 0.04 10^3/uL (0.0-0.06); Absolute Basophil Count 0.04 10^3/uL (0.0-0.2); Absolute Eosinophil Count 0.11 10^3/uL (0.0-0.7); Absolute Lymphocyte Count 2.97 10^3/uL (1.2-3.4); Absolute Monocyte Count 0.49 10^3/uL (0.1-0.8); Absolute Neutrophil Count 4.48 10^3/uL (1.2-6.7); Basophils % 0.5; Eosinophils % 1.4; HCT 41.3 % (36.0-46.0); HGB 13.6 g/dL (11.2-15.7); Immature Grans % 0.5; Lymphocytes % 36.5; MCHC 32.9 % (32.0-36.0); Neutrophils % 55.1; Nucleated RBC 0 %; Platelet Count 273 10^3/uL (130-400); RBC 4.54 10^6/uL (3.93-5.22); RDW 12.1 % (11.7-14.6); RDW-SD 40.1 fL; WBC 8.13 10^3/uL (4.4-10.8)
[2020-08-08 01:14] LABS: Bacteria Moderate HPF (Negative); C & S Indicated? C&S Done As Ordered; Casts Negative LPF (Negative); Crystals Negative HPF (Negative); Epithelial Cells Many HPF (Negative); Mucus Negative (Negative); WBC 0-2 HPF (0-5)
[2020-08-08] MEDS: Ketorolac 30 MG/ML VIAL (01:17)
[2020-08-08 01:28] LABS: Anion Gap 7.5 mmol/L (3-11); BUN 15 mg/dL (7-18); CO2 28.5 mmol/L (21.0-32.0); CREATININE 0.8 mg/dL (0.55-1.02); Calcium 8.7 mg/dL (8.5-10.1); Chloride 103 mmol/L (98-107); Glucose 114 mg/dL (74-106); Potassium 3.8 mmol/L (3.5-5.1); Sodium 139 mmol/L (136-145)
== END 2020-08-08 02:22 | disposition home or self-care (01) ==
PROVIDERS: Emergency Provider Emergency Medicine; PCP Nurse Practitioner Family
DX: R10.2 Pelvic and perineal pain (principal); M54.5 Low back pain; E28.2 Polycystic ovarian syndrome
CPT/HCPCS: 36415; 80048; 81025; 87491; 87591; 96374; 99284; 81003; 81015; 85025; 87086; 99283; J1885

== ENCOUNTER 2021-04-10 10:02 | Outpatient (REF) | payer OTHER, SELFPAY ==
--- NOTE | 2021-04-10 09:00 | PAPFT_PTH ---
PATIENT: Jahaira Faust LOC: [facility] U#:[id number] AGE/SX: 30/F ROOM: RE04/10/[address]: Paige Krishnamurthy CNM : 1990 BED: DIS: 04/10/2021 SPEC #: [id number] RECD: 04/10/21 12:45 STATUS: SOUAleksandra REQ #: [id number] UMU: 04/10/21 09:[address]: Paige Krishnamurthy DEPT: [facility] Cytology RECD BY: Ness Guaman ENTERED: 04/10/21 12:45 SP TYPE: PAPFT OTHR DR: Rochelle Martin Tissues: 1 - CX/ENDOCX FOR PAP SMEARS Procedures: PAP THIN PREP/[facility] Screening Comments: [id number]
== END 2021-04-10 10:03 | disposition home or self-care (01) ==
LOC: LBN 10:02
PROVIDERS: PCP Nurse Practitioner Family; Visit Provider Advanced Practice Midwife
DX: Z12.4 Encounter for screening for malignant neoplasm of cervix (principal); Z01.419 Encounter for gynecological examination (general) (routine) without abnormal findings; R87.610 Atypical squamous cells of undetermined significance on cytologic smear of cervix (ASC-US)
CPT/HCPCS: 88142

== ENCOUNTER 2021-05-14 12:50 | Outpatient (REF) | payer OTHER, SELFPAY ==
--- NOTE | 2021-05-14 11:30 | ENDO_PTH ---
PATIENT: Jahaira Faust LOC: N U#:[id number] AGE/SX: 30/F ROOM: RE05/14/[address]: Aliza Maciel DO : 1990 BED: DIS: 05/14/2021 SPEC #: [id number] RECD: 05/14/21 12:54 STATUS: FARHAN REQ #: [id number] UMU: 05/14/21 11:[address]: Aliza Maciel DEPT: Surgical Specimen RECD BY: Celeste Hall ENTERED: 05/14/21 12:56 SP TYPE: Endo OTHR DR: Rochelle Martin Tissues: 1 - ENDOCERVICAL BX/CURRETTE Procedures: GROSS AND MICRO LEVEL 4 Comments: [id number]
== END 2021-05-14 12:51 | disposition home or self-care (01) ==
LOC: LBN 12:50
PROVIDERS: PCP Nurse Practitioner Family; Visit Provider Obstetrics & Gynecology
DX: R87.610 Atypical squamous cells of undetermined significance on cytologic smear of cervix (ASC-US) (principal)
CPT/HCPCS: 88305

== ENCOUNTER 2021-06-10 06:55 | Emergency (ER) | payer OTHER, SELFPAY ==
[2021-06-10] VITALS (71 sets, daily range): BP systolic 105–131; BP diastolic 55–91; PULSE 77–104; RESP 10–24; TEMP 37; O2SAT 95–100
--- NOTE | 2021-06-10 07:10 | ED.GENADUL_ITS ---
Discharge Plan Disposition Patient Disposition: HOME Condition: Stable Discharge Details Clinical Impression: Headache, Facial paresthesia, Paralysis of left upper extremity, Left leg weakness Primary Care Provider: Rochelle Martin ED Provider: Snow Chowdary Home Meds and New Rx's Prescriptions: Continued prenat.vits,angie,qjf-hzag-nrjpy Tablet 1 tab PO DAILY RF: 0 ibuprofen 800 mg tablet 800 mg PO Q8H Qty: 60 RF: 1 No Action sumatriptan succinate 100 mg tablet See Rx Instructions PO .COMPLEX Qty: 9 RF: 5 Discharge Instructions Instructions: Migraine Headache (ED), Paresthesia (ED) Additional Instructions: Please return immediately to the emergency department if you develop any new or worsening symptoms, if your condition does not improve as expected, or if you become otherwise concerned. It is extremely important that you call soon as possible to make an appointment to be seen in follow-up for this visit by your primary care doctor, physical therapy, and Dr. Montez of neurology as we discussed. Stand Alone Forms: Physical Therapy Referral Referrals: Viry Montez MD [[facility] STAFF PHYSICIAN] - Luan Camacho PT [PHYSICAL THERAPIST] - Rochelle Martin [Primary Care Provider] - Discharge Data Discharge Date/Time-TO BE ENTERED AT DEPARTURE: 06/10/21 14:50 Medical Decision Making <Annita Bullock DO - Last Filed: 06/10/21 08:12> 31-year-old female with a history of anxiety, bipolar disorder and PCOS presents for headache since yesterday and numbness of her lower face, with numbness and weakness in her left arm and left leg since 12:30 AM this morning. Vitals within normal limits. Patient appears comfortable and nontoxic. She has difficulty moving her tongue to the left side and is unable to move her left arm at all. The muscle strength of her left leg is 3/5. Concern for possible CVA. As symptoms started 7 hours ago, outside of window to tPA. Urine test negative. Will refer for CT brain and if negative sebastián lund plan for MRI brain. Will obtain screening labs, EKG, chest x-ray. Will give fluids and IV Tylenol for headache. Case endorsed to Dr. Chowdary to follow-up on results and final disposition. <Snow Chowdary MD - Last Filed: 06/15/21 08:56> Jahaira Faust was most signed out to me by Dr. Bullock at time of shift change with imaging, lab work pending. CTA, chest x-ray negative per radiology. Labs reviewed and nondiagnostic. On my assessment patient is able to move left leg, states that it feels heavy. Feels that she is completely unable to move the left arm and says that it is completely numb and she has no sensation. On assessment patient is able to briefly hold her arm in the air. Patient reports no sensation in the left arm on my testing. She reports that her left-sided lips and tongue feel numb. Report sensory deficit of the left jaw as compared to the right on testing. Cranial nerves otherwise intact at this time. Patient is also reporting pain at the superior aspect of her left armpit. There is tenderness in this area that reproduces pain. There is no overlying skin changes in this area, no mass, no fluctuance, no induration on palpation. There is no tenderness palpation in the axilla itself. Unclear etiology of pain/tenderness at this time. This is not appear to be related to acute emergent vascular pathology, abscess, or cellulitis. Not consistent with acute coronary syndrome or pulmonary embolism. Concern for possible multiple sclerosis, other brain/cervical spine pathology. I discussed patient pre sentation results this point with Dr. Montez neurology, who recommends MRI brain and cervical spine with and without contrast for further evaluation. Patient is amenable to plan. Patient given Compazine, Benadryl for headache while awaiting MRI. MRI brain, cervical spine show small C5 disc herniation. I discussed this finding with Dr. Rodriguez of orthopedics, who stated that this finding would not be responsible for patient's presenting symptoms. I discussed findings with Dr. Montez of neurology, who stated symptoms, physical exam findings likely account development representative of migraine, however hemiparesis with migraine typically has familial component. States she will see patient as outpatient in follow-up, recommend that patient physical therapy, no further acute intervention recommended at this time. On reassessment patient reported feeling significantly improved after medications, headache resolved, no further heaviness in left leg, ranging left arm normally, mild tingling sensation in left hand. No further pain in the left axilla. Patient reports that she feels essentially at baseline. I asked patient about family history of similar symptoms, and patient reports that her mother has migraines with similar hemiparesis. This is likely etiology of symptoms at this time. I did discuss C5 herniation with her, plan for outpatient follow-up. I had a discussion with Patient regarding return to emergency department precautions, home care, and importance of outpatient follow-up. Pt verbalizes understanding of the plan and is amenable. Patient discharged to home with clear plan for outpatient follow- up. All questions were answered. Disposition decision was made weighing the risks and benefits of hospitalization versus outpatient treatment, the risk for further decompensation, and the patient's wishes. Medical Records Medical records reviewed: Yes I reviewed the patient's medical records. Imaging Data Radiologic Study: Attestation: I personally reviewed and interpreted this imaging study as follows: Radiologist's impression: EXAM: CT BRAIN NECK CTA CLINICAL HISTORY: L sided headache, numbness, r/o cva. TECHNIQUE: Imaging Protocol: Axial CT angiography was performed with multi- slice acquisition and multi-planar and/or 3D reconstructions. CONTRAST MATERIAL: Intravenous: Omnipaque 350 Contrast volume:structured data in ml COMPARISON: CT CT CHEST PE CTA from 09/21/2018 FINDINGS: CTA Neck W: Aortic arch anatomy: The aortic arch anatomy is conventional. Anterior circulation: Both common carotid arteries are patent. No significant atherosclerotic disease in these vessels nor at the level the bifurcations nor in the proximal internal carotid arteries in the neck. Both ICAs are patent in the neck and skull base- carotid canals. Posterior circulation: Both vertebral arteries are patent and ascend with approximately equal normal luminal diameters. No intraluminal thrombus. No dissection CTA Brain W: Anterior circulation: Internal carotid arteries in the skull base and cavernous sinuses appear unremarkable. Supraclinoid aspects are patent. Both A1 segments are patent. Anterior cerebral arteries are patent. Middle cerebral arteries are patent bilaterally. No intraluminal thrombus. No aneurysms evident. Posterior circulation: Basilar artery is formed at the skull base by both vertebral arteries. Ascends in the midline. Distally gives off patent bilateral superior cerebellar arteries and above this level terminates as patent bilateral posterior cerebral arteries. There is no aneurysm at the tip of the basilar artery. CT BRAIN: There is no evidence of intracranial hemorrhage, mass effect, or shift of midline structures. There are no extra-axial fluid collections. Ventricles are not enlarged or shifted. There are no ring enhancing lesions in the brain and no abnormal meningeal enhancement. IMPRESSION: 1. Patent carotid arteries in the neck. No stenosis. Also patent vertebral arteries in the neck and skull base. 2. Patent intracranial arteries. No evidence of significant stenosis nor intraluminal thrombus and no obvious aneurysms. 3. No acute intracranial findings. No ring enhancing lesions. EXAM: MR CERVICAL SPINE WO/W CLINICAL HISTORY: left arm, lower face numbness TECHNIQUE: Multiplanar multisequence MRI of the cervical spine was performed. Both pre and post contrast infused sequences were performed. Contrast infused was IV Dotarem 19 mL. COMPARISON: No exams were available for comparison FINDINGS: CERVICOMEDULLARY JUNCTION: Intact with no evidence of cerebellar tonsillar ectopia. No obvious abnormality of the odontoid process. No evidence of Chiari 1 malformation. CERVICAL SPINAL CORD: There is no abnormal signal in the cervical spinal cord a nd no evidence of focal cord atrophy nor focal cord swelling. No abnormal signal nor enhancement seen in the cord. No syrinx evident. OSSEOUS:There are no cervical fractures evident. No significant osseous lesions in the cervical vertebrae. Osseous enhancement INDIVIDUAL LEVELS: C2-3: No disc herniation nor central canal stenosis. No foraminal stenosis. No facet arthropathy. C3-4: The central posterior subligamentous disc bulge. This contacts the anterior aspect of thecal sac and cord. Central canal dimensions are lower normal.No facet arthropathy. No foraminal stenosis. C4-5: No disc herniation nor central canal stenosis.No facet arthropathy. No foraminal stenosis C5-6: Relatively preserved disc height. However, there is a posterolateral left disc protrusion. This extends posteriorly approximately 3 millimeters and is approximately 7 millimeters wide. This indents the left side of the cervical cord and contacts nerve root. No prominent extension of the disc protrusion into the exiting neural foramen. Central canal dimensions are lower normal. No prominent foraminal stenosis. C6-7: Normal disc height and signal. No disc herniation. No canal stenosis. No foraminal stenosis. No facet arthropathy. C7-T1: No disc herniation nor central canal stenosis. No facet arthropathy.No foraminal stenosis. IMPRESSION: 1. Main finding here is a posterolateral left disc protrusion at C5-6 level. This indents the left side of the thecal sac and cervical cord at this level. There is no abnormal signal in the cord at this level nor elsewhere in the cervical cord. 2. No evidence of significant central canal nor foraminal stenosis. There is no facet arthropathy. 3. No abnormal signal nor enhancement in the cervical cord. EXAM: MR BRAIN WO/W CLINICAL HISTORY: left sided weakness, lower face numbness TECHNIQUE: Multiplanar multisequence MRI of the brain was performed. Both noninfused and contrast infused sequences were performed. IV Contrast injected was 19 cc Dotarem. COMPARISON: No exams were available for comparison FINDINGS: CEREBRAL PARENCHYMA: No evidence of intracranial hemorrhage, mass effect nor shift of midline structure. No extraaxial fluid collections. Ventricles are not enlarged nor shifted. There is no significant focal signal abnormality in the cerebellar hemispheres nor within the jorge, midbrain, and thalami. There is no abnormal signal abnormality in the periventricular white matter. DWI: No abnormal restricted motion signal evident on diffusion imaging. There are no ring enhancing lesions in the brain. There is no abnormal meningeal enhancement. PITUITARY GLAND: No mass nor parasellar abnormality. No obvious abnormality in the cavernous sinuses. FLOW VOIDS: The expected flow void are noted. No evidence of obvious aneurysm nor obvious vascular malformation. PARANASAL SINUSES: The visualized paranasal sinuses appear unremarkable. ORBITS: No obvious abnormal findings. IMPRESSION: 1. No significant intracranial findings on this MRI scan of the brain. 2. No abnormal enhancing intracranial finding. 3. There is no evidence of demyelinating disease. Lab Data Lab results reviewed: Yes I reviewed the patient's lab results. Labs: Laboratory Tests Range/Units 06/10/21 06/10/21 06/10/21 07:20 07:20 07:20 WBC (4.4-10.8) 10^3/uL 6.16 RBC (3.93-5.22) 10^6/uL 4.45 Hgb (11.2-15.7) g/dL 13.4 Hct (36.0-46.0) % 41.0 MCV (80-95) fL 92.1 MCH (27.0-33.0) pg 30.1 MCHC (32.0-36.0) % 32.7 RDW (11.7-14.6) % 11.8 Plt Count (130-400) 10^3/uL 269 MPV (8.0-11.0) fL 9.8 Immature Gran % 0.6 Neutrophils % 67.8 Lymphocytes % 24.8 Monocytes % 5.7 Eosinophils % 0.8 Basophils % 0.3 Nucleated RBC % % 0 Absolute Neutrophils (1.2-6.7) 10^3/uL 4.17 Absolute Lymphocytes (1.2-3.4) 10^3/uL 1.53 Absolute Monocytes (0.1-0.8) 10^3/uL 0.35 Absolute Eosinophils (0.0-0.7) 10^3/uL 0.05 Absolute Basophils (0.0-0.2) 10^3/uL 0.02 PT (9.3-11.0) sec 10.4 INR (0.9-1.1) 1.0 APTT (21.0-27.5) sec 24.3 Sodium (136-145) mmol/L 139 Potassium (3.5-5.1) mmol/L 3.9 Chloride (98-107) mmol/L 105 Carbon Dioxide (21.0-32.0) mmol/L 25.7 Anion Gap (3-11) mmol/L 8.3 BUN (7-18) mg/dL 11 Creatinine (0.55-1.02) mg/dL 0.9 Estimated GFR/1.73 m2 (mL/min/1.73m2) >= 60.00 Glucose (74-106) mg/dL 104 Calcium (8.5-10.1) mg/dL 8.3 L Magnesium (1.8-2.4) mg/dL 1.9 Total Bilirubin (0.2-1.0) mg/dL 0.6 AST (15-37) U/L 11 L ALT (14-59) U/L 20 Alkaline Phosphatase (46-116) U/L 76 Troponin I (<or=60) ng/L < 50 Total Protein (6.4-8.2) g/dL 7.5 Albumin (3.4-5.0) g/dL 3.8 ECG Data Attestation: I personally reviewed and interpreted this ECG (s) as follows: Interpretation: EKG shows sinus rhythm at 85, normal axis, no STEMI, nondiagnostic EKG HPI <Annita Bullock DO - Last Filed: 06/10/21 08:12> General Mode of arrival: ambulatory . Date/Time Provider Initiated Documentation: 06/10/21 07:08 . Limitations to Documentation: no limitations . Information obtained by: patient . HPI Narrative: Patient is a 31-year-old female with a history of bipolar disorder, anxiety, PCOS presents for headache since yesterday and numbness of her lower face, numbness and weakness of her left arm and left leg since 12:30 AM this morning. Patient states that yesterday she developed a squeezing-like headache in her forehead which is different from her usual migraine in that she did not have photophobia. She states she did also fall while walking to her car yesterday while feeling dizzy. She states she has been falling a lot frequently over the last 2 months with dizziness. She denies any recent injury. She states this morning she woke up and noted numbness along the lower half of her face from her chin down. She states that she also noted that her left arm and left leg were numb and weak. She states she is unable to move her left arm. She has been walking this morning. She denies any recent fever, vomiting, diarrhea, new medications or known exposure to coronavirus. She is not vaccinated for coronavirus. She took Excedrin Migraine yesterday for headache but has not taken anything today. Related Data Home Medications Medication Instructions Recorded Confirmed prenat.vits,angie,nbs-pqau-hvvyo 1 tab PO DAILY 08/08/20 06/11/21 ibuprofen 800 mg tablet 800 mg PO Q8H #60 tab 05/14/21 06/11/21 sumatriptan succinate 100 mg tablet See Rx Instructions PO .COMPLEX #9 06/11/21 06/11/21 tab Previous Rx's Medication Instructions Recorded ibuprofen 800 mg tablet 800 mg PO Q8H #60 tab 05/14/21 sumatriptan succinate 100 mg tablet See Rx Instructions PO .COMPLEX #9 06/11/21 tab Allergies Allergy/AdvReac Type Severity Reaction Status Date / Time cefaclor [From [facility]] Allergy Mild unsure Unverified 06/11/21 13:40 General Stated Complaint: CVA/TIA MAHENDRA: 2 Review of Systems <Annita Bullock DO - Last Filed: 06/10/21 08:12> All systems reviewed & are unremarkable except as noted in HPI and below Constitutional Constitutional: Reports as per HPI, Denies chills, Denies fever(s), Reports headache(s) and Reports weakness Eyes Eyes: Denies blurry vision ENT Ears, Nose, Mouth, and Throat: Reports dizziness, Reports headache(s), Denies sore throat and Denies throat swelling Cardiovascular Cardiovascular: Denies chest pain and Denies dyspnea Respiratory Respiratory: Denies cough and Denies dyspnea Gastrointestinal Gastrointestinal: Denies abdominal pain, Denies diarrhea and Denies vomiting Genitourinary Genitourinary: Denies hematuria and Denies dysuria Musculoskeletal Musculoskeletal: Denies back pain and Reports numbness Integumentary/Breasts Skin/Breast: Denies lesions and Denies rash Neurologic Neurologic: Reports dizziness, Reports headache(s), Denies localized weakness, Reports numbness and Reports weakness Allergic/Immunologic Allergic/Immunologic: Denies throat swelling PFS <Annita Bullock, DO - Last Filed: 06/10/21 08:12> All Active Problems Blackout spell (Acute) Cervical disc herniation (Acute) Migraine headache with aura (Acute) Headache (Acute) Facial paresthesia (Acute) Paralysis of left upper extremity (Acute) Left leg weakness (Acute) Pre-conception counseling (Acute) Hirsutism (Acute) Menorrhagia (Acute) Postcoital bleeding (Acute) Cervical high risk HPV (human papillomavirus) test positive (Acute) Dysfunctional uterine bleeding (Acute) Polycystic disease, ovaries (Acute) Dysuria (Acute) Vaginitis (Acute) Bipolar I disorder (Acute 03/21/17) Currently no evidence of gavin or acute depression. BMI 38.0-38.9,adult (Acute 03/04/17) Medical History Anxiety Bipolar disorder in remission Surgical History section (07/27/17) 07/25/17. PC/S. Unsuccessful IOL at 42w. M. Akhil. aoc/dd. Family History Mother Depression Father , car accident at age 33. Essential hypertension Bipolar disorder Sister Asthma Grandfather Stroke Grandmother Diabetes Grandfather Prostate cancer Cancer of kidney Grandmother Parkinsons disease Social History Smoking/Tobacco Use Status: Never Smoking risk assessment performed?: Yes Alcohol Intake: current Alcohol Intake frequency: holidays/special occasions only Drug use: Never Substance use type: does not use Household members: spouse, children and other Details: son Akhil Number of Children: 1 current occupation: works for [employer] What is your relationship status?: Panel score (0-1 are the most socially isolated patients): 1 Do you feel safe at home: Yes Do you feel safe in your relationship?: Yes Female Reproductive History Menstrual control method: copper IUCD History History 3 Para 1 Hx # Term Pregnancies Multiple births Hx # Pregnancies Ectopic pregnancies AB induced 1 Hx Number of Living Children 1 AB spontaneous 1 Exam <Annita Bullock DO - Last Filed: 06/10/21 08:12> Const General: cooperative, healthy appearing and no acute distress HENMT Head: normal to inspection Face and sinus: normal facial exam Eyes General: appearance normal, both eyes and all related structures Pupils: PERRL EOM: EOM intact bilaterally Neck Neck: normal visual inspection and No submandibular swelling Lymphatic: no lymphadenopathy noted Chest Chest: normal inspection of the chest and no tenderness Resp Effort & Inspection: normal respiratory effort and able to speak in complete sentences Auscultation: clear to auscultation bilaterally Cardio Rate: regular rate Rhythm: regular rhythm GI Inspection: normal to inspection Palpation: soft, not firm, not rigid and nontender Auscultation: normal bowel sounds Skin General skin exam: no rashes or lesions noted Neuro General: patient alert, patient awake and patient oriented x3 Cranial Nerves: PERRL, EOM intact bilaterally, no nystagmus, facial strength normal, tongue midline, able to elevate shoulders bilaterally and other (difficulty with moving tongue to left side) Cognition: normal cognition Speech: speech normal Motor: muscle tone normal throughout Sensory Exam: no sensory deficits noted Other: Unable to lift left upper extremity. Muscle strength 3/5 left lower extremity. Normal muscle strength right upper and lower extremities 5/5. Extrem General: normal to inspection, full ROM, capillary refill normal, no calf tenderness bilaterally and no edema Psych Appearance: grossly normal Mental Status: mental status grossly normal Speech and Movement: speech and movement normal Affect: normal affect Course <DO Sharron Puente Last Filed: 06/10/21 08:12> Vital Signs Vital signs: Vital Signs Temperature 98.6 F 06/10/21 07:01 Pulse 95 H 06/10/21 07:01 Respiratory Rate 18 06/10/21 07:01 Blood Pressure 131/71 06/10/21 07:01 Pulse Oximetry 99 06/10/21 07:01 Temperature 98.6 F 06/10/21 07:01 Temperature Source Temporal Artery Scan 06/10/21 07:01 Pulse 95 H 06/10/21 07:01 Respiratory Rate 18 06/10/21 07:01 Respiratory Effort Non-Labored 06/10/21 07:08 Blood Pressure 131/71 06/10/21 07:01 Blood Pressure Position Supine 06/10/21 07:01 Pulse Oximetry 99 06/10/21 07:01 Oxygen Delivery Method Room Air 06/10/21 07:01 Oxygen Flow Rate 0 06/10/21 07:01 Pain Level 7 06/10/21 07:01 Sign Out <Annita Bullock DO - Last Filed: 06/10/21 08:12> Sign Out Data: Sign Out Comment: Pending cta brain/neck to r/o acute cva Last updated by Annita Bullock DO at 06/10/21 07:41
--- NOTE | 2021-06-10 07:15 | DI.RAD_ITS ---
Exam(s) XR CHEST 2V PA LATERAL EXAM: XR CHEST 2V PA LATERAL CLINICAL HISTORY: possible cva, r/o acute disease. TECHNIQUE: 2D digital imaging was performed. COMPARISON: No exams were available for comparison FINDINGS: Heart size is normal. The mediastinum is not widened. Lungs are clear. No infiltrates nor pleural effusions. IMPRESSION: No acute pulmonary findings. DATA REPOSITORY: RADIATION DOSE DELIVERED:
--- NOTE | 2021-06-10 07:15 | RT.EKG_ITS ---
APPROVED REPORT Exam: Resting ECG Reason for Exam: headache, L sided numbness, r/o cva Patient Location: E HR:85 bpm ECG Measurements Heart Rate 85 AXIS WA 141 P 49 QRSd 95 QRS 30 QT 379 T 7 QTc 452 Conclusion Sinus rhythm...normal P axis, V-rate 60- 99 sinus rhythm at 85, normal axis, no STEMI, nondiagnostic EKG
--- NOTE | 2021-06-10 07:15 | DI.CT_ITS ---
Exam(s) CT BRAIN NECK CTA EXAM: CT BRAIN NECK CTA CLINICAL HISTORY: L sided headache, numbness, r/o cva. TECHNIQUE: Imaging Protocol: Axial CT angiography was performed with multi-slice acquisition and mu lti-planar and/or 3D reconstructions. CONTRAST MATERIAL: Intravenous: Omnipaque 350 Contrast volume:structured data in ml COMPARISON: CT CT CHEST PE CTA from 09/21/2018 FINDINGS: CTA Neck W: Aortic arch anatomy: The aortic arch anatomy is conventional. Anterior circulation: Both common carotid arteries are patent. No significant atherosclerotic disease in these vessels nor at the level the bifurcations nor in the proximal internal carotid arteries in the neck. Both ICAs are patent in the neck and skull base-carotid canals. Posterior circulation: Both vertebral arteries are patent and ascend with approximately equal normal luminal diameters. No intraluminal thrombus. No dissection CTA Brain W: Anterior circulation: Internal carotid arteries in the skull base and cavernous sinuses appear unremarkable. Supraclinoid aspects are patent. Both A1 segments are patent. Anterior cerebral arteries are patent. Middle cerebral arteries are patent bilaterally. No intraluminal thrombus. No aneurysms evident. Posterior circulation: Basilar artery is formed at the skull base by both vertebral arteries. Ascends in the midline. Dist ally gives off patent bilateral superior cerebellar arteries and above this level terminates as paten t bilateral posterior cerebral arteries. There is no aneurysm at the tip of the basilar artery. CT BRAIN: There is no evidence of intracranial hemorrhage, mass effect, or shift of midline structures. There are no extra-axial fluid collections. Ventricles are not enlarged or shifted. There are no ring enh ancing lesions in the brain and no abnormal meningeal enhancement. IMPRESSION: 1. Patent carotid arteries in the neck. No stenosis. Also patent vertebral arteries in the neck and skull base. 2. Patent intracranial arteries. No evidence of significant stenosis nor intraluminal thrombus and no obvious aneurysms. 3. No acute intracranial findings. No ring enhancing lesions. RADIATION DOSE DELIVERED: 2,087.37mGy.cm Total DLP DATA REPOSITORY: All CT scans at this facility are submitted to the National Radiology Data Registry (NRDR) Dose Index Registry (DIR) with the [employer] (ACR). RADIATION OPTIMIZATION: All CT scans at this facility use at least one of these dose optimization te chniques: automated exposure control; mA and/or kV adjustment per patient size (includes targeted exa ms where dose is matched to clinical indication); or iterative reconstruction.
[2021-06-10] MEDS: Normal Saline 1,000 ML 1000 ML IV ×2 (07:25→12:20)
[2021-06-10 07:29] LABS: Abs Immature Grans 0.04 10^3/uL (0.0-0.06); Absolute Basophil Count 0.02 10^3/uL (0.0-0.2); Absolute Eosinophil Count 0.05 10^3/uL (0.0-0.7); Absolute Lymphocyte Count 1.53 10^3/uL (1.2-3.4); Absolute Monocyte Count 0.35 10^3/uL (0.1-0.8); Absolute Neutrophil Count 4.17 10^3/uL (1.2-6.7); Basophils % 0.3; Eosinophils % 0.8; HGB 13.4 g/dL (11.2-15.7); Immature Grans % 0.6; Lymphocytes % 24.8; MCH 30.1 pg (27.0-33.0); MCHC 32.7 % (32.0-36.0); MCV 92.1 fL (80-95); MPV 9.8 fL (8.0-11.0); Monocytes % 5.7; Neutrophils % 67.8; Nucleated RBC 0 %; Platelet Count 269 10^3/uL (130-400); RBC 4.45 10^6/uL (3.93-5.22); RDW 11.8 % (11.7-14.6); WBC 6.16 10^3/uL (4.4-10.8)
[2021-06-10] MEDS: Omnipaque 350 MG/ML 100 ML BTL IV (07:30)
[2021-06-10 07:45] LABS: ALT 20 U/L (14-59); AST 11 U/L (15-37); Albumin 3.8 g/dL (3.4-5.0); Alkaline Phosphatase 76 U/L (46-116); Anion Gap 8.3 mmol/L (3-11); BUN 11 mg/dL (7-18); Bilirubin, Total 0.6 mg/dL (0.2-1.0); CO2 25.7 mmol/L (21.0-32.0); CREATININE 0.9 mg/dL (0.55-1.02); Calcium 8.3 mg/dL (8.5-10.1); Chloride 105 mmol/L (98-107); Glucose 104 mg/dL (74-106); Magnesium 1.9 mg/dL (1.8-2.4); Potassium 3.9 mmol/L (3.5-5.1); Sodium 139 mmol/L (136-145); Total Protein 7.5 g/dL (6.4-8.2); Troponin I < 50 ng/L (<or=60)
[2021-06-10 07:46] LABS: PTT Activated 24.3 sec (21.0-27.5); Prothrombin Time 10.4 sec (9.3-11.0)
[2021-06-10] MEDS: ACETAMINOPHEN 1,000 MG/100 ML BTL 400 MG IVPB (08:01)
--- NOTE | 2021-06-10 08:45 | DI.MRI_ITS ---
Exam(s) MR BRAIN WO/W EXAM: MR BRAIN WO/W CLINICAL HISTORY: left sided weakness, lower face numbness TECHNIQUE: Multiplanar multisequence MRI of the brain was performed. Both noninfused and contrast i nfused sequences were performed. IV Contrast injected was 19 cc Dotarem. COMPARISON: No exams were available for comparison FINDINGS: CEREBRAL PARENCHYMA: No evidence of intracranial hemorrhage, mass effect nor shift of midline structu re. No extraaxial fluid collections. Ventricles are not enlarged nor shifted. There is no significant focal signal abnormality in the cerebellar hemispheres nor within the jorge, m idbrain, and thalami. There is no abnormal signal abnormality in the periventricular white matter. DWI: No abnormal restricted motion signal evident on diffusion imaging. There are no ring enhancing lesions in the brain. There is no abnormal meningeal enhancement. PITUITARY GLAND: No mass nor parasellar abnormality. No obvious abnormality in the cavernous sinuses. FLOW VOIDS: The expected flow void are noted. No evidence of obvious aneurysm nor obvious vascular ma lformation. PARANASAL SINUSES: The visualized paranasal sinuses appear unremarkable. ORBITS: No obvious abnormal findings. IMPRESSION: 1. No significant intracranial findings on this MRI scan of the brain. 2. No abnormal enhancing intracranial finding. 3. There is no evidence of demyelinating disease. See separate cervical spine MRI report DATA REPOSITORY:
--- NOTE | 2021-06-10 09:00 | DI.MRI_ITS ---
Exam(s) MR CERVICAL SPINE WO/W EXAM: MR CERVICAL SPINE WO/W CLINICAL HISTORY: left arm, lower face numbness TECHNIQUE: Multiplanar multisequence MRI of the cervical spine was performed. Both pre and post con trast infused sequences were performed. Contrast infused was IV Dotarem 19 mL. COMPARISON: No exams were available for comparison FINDINGS: CERVICOMEDULLARY JUNCTION: Intact with no evidence of cerebellar tonsillar ectopia. No obvious abnor mality of the odontoid process. No evidence of Chiari 1 malformation. CERVICAL SPINAL CORD: There is no abnormal signal in the cervical spinal cord and no evidence of foca l cord atrophy nor focal cord swelling. No abnormal signal nor enhancement seen in the cord. No syr inx evident. OSSEOUS:There are no cervical fractures evident. No significant osseous lesions in the cervical vert ebrae. Osseous enhancement INDIVIDUAL LEVELS: C2-3: No disc herniation nor central canal stenosis. No foraminal stenosis. No facet arthropathy. C3-4: The central posterior subligamentous disc bulge. This contacts the anterior aspect of thecal s ac and cord. Central canal dimensions are lower normal.No facet arthropathy. No foraminal stenosis. C4-5: No disc herniation nor central canal stenosis.No facet arthropathy. No foraminal stenosis C5-6: Relatively preserved disc height. However, there is a posterolateral left disc protrusion. Th is extends posteriorly approximately 3 millimeters and is approximately 7 millimeters wide. This ind ents the left side of the cervical cord and contacts nerve root. No prominent extension of the disc protrusion into the exiting neural foramen. Central canal dimensions are lower normal. No prominent foraminal stenosis. C6-7: Normal disc height and signal. No disc herniation. No canal stenosis. No foraminal stenosis. No facet arthropathy. C7-T1: No disc herniation nor central canal stenosis. No facet arthropathy.No foraminal stenosis. IMPRESSION: 1. Main finding here is a posterolateral left disc protrusion at C5-6 level. This indents the left s siddhartha of the thecal sac and cervical cord at this level. There is no abnormal signal in the cord at th is level nor elsewhere in the cervical cord. 2. No evidence of significant central canal nor foraminal stenosis. There is no facet arthropathy. 3. No abnormal signal nor enhancement in the cervical cord. DATA REPOSITORY:
[2021-06-10] MEDS: Normal Saline Flush 10 ML SYR IVP (11:11)
[2021-06-10] MEDS: Gadoterate meglumine 20 ML VIAL 19 ML IVP (11:11)
[2021-06-10] MEDS: diphenhydrAMINE 50 MG/ML VIAL 25 MG IVP (12:28)
[2021-06-10] MEDS: Prochlorperazine 10 MG/2 ML VIAL IVP (12:30)
--- NOTE | 2021-06-10 14:26 | NUR.NOTE ---
Nursing Note: Referral faxed to [facility] Neurology for weakness, migraine, in 1 to [address] Khanna about this pt. Leisa Call
== END 2021-06-10 14:50 | disposition home or self-care (01) ==
PROVIDERS: Physician Assistant; Emergency Provider Student in an Organized Health Care Education/Training Program; PCP Nurse Practitioner Family
DX: R51.9 Headache, unspecified (principal); R20.2 Paresthesia of skin; G81.94 Hemiplegia, unspecified affecting left nondominant side; M50.221 Other cervical disc displacement at C4-C5 level
CPT/HCPCS: 36415; 70496; 70498; 70553; 80053; 81025; 93005; 96361; 96365; 96375; 99285; 71046; 72156; 83735; 84484; 85025; 85610; 85730; 93010; J0131; J0780; J1200; J3490

== ENCOUNTER 2021-08-19 15:39 | Outpatient (REF) | payer MEDICAID, SELFPAY | END 2021-08-19 15:40 | disposition home or self-care (01) | LOC: LBN 15:39 | PROVIDERS: PCP Nurse Practitioner Family; Visit Provider Physician Assistant Medical | DX: M54.9 Dorsalgia, unspecified (principal) | CPT/HCPCS: 87086 ==

== ENCOUNTER 2021-09-01 03:56 | Outpatient (CLI) | payer MEDICAID, SELFPAY ==
[2021-09-01 11:36] LABS: Kit/Specimen SENT
[2021-09-01 11:41] LABS: Abs Immature Grans 0.04 10^3/uL (0.0-0.06); Absolute Basophil Count 0.02 10^3/uL (0.0-0.2); Absolute Eosinophil Count 0.04 10^3/uL (0.0-0.7); Absolute Monocyte Count 0.44 10^3/uL (0.1-0.8); Absolute Neutrophil Count 6.33 10^3/uL (1.2-6.7); Basophils % 0.2; Eosinophils % 0.5; HCT 37.1 % (36.0-46.0); HGB 12.7 g/dL (11.2-15.7); Immature Grans % 0.5; Lymphocytes % 16.9; MCH 31.3 pg (27.0-33.0); MCHC 34.2 % (32.0-36.0); MCV 91.4 fL (80-95); MPV 10.2 fL (8.0-11.0); Monocytes % 5.3; Neutrophils % 76.6; Nucleated RBC 0 %; Platelet Count 233 10^3/uL (130-400); RBC 4.06 10^6/uL (3.93-5.22); RDW 11.9 % (11.7-14.6); RDW-SD 39.6 fL; WBC 8.27 10^3/uL (4.4-10.8)
[2021-09-01 12:51] LABS: TSH (W/Ref FT4) 1.34 uIU/mL (0.36-3.74)
[2021-09-01 15:57] LABS: *AMPHETAMINES SCREEN URINE Negative (Negative); *BARBITURATES SCREEN URINE Negative (Negative); *BENZODIAZEPINES SCREEN URINE Negative (Negative); Cannabinoids THC Negative (Negative); Cocaine Screen,Urine Negative (Negative); METHADONE URINE SCREEN Negative (Negative); OPIATES URINE SCREEN Negative (Negative); Tricyclic Antidepressants Negative (Negative)
[2021-09-03 09:59] LABS: HIV-1/2 Ag & Ab Screen Negative (Negative)
[2021-09-03 10:14] LABS: Hepatitis B Surface Ag Negative (Negative); Hepatitis C Ab w Rflx HCV PCR Negative (Negative)
[2021-09-03 10:26] LABS: Varicella IgG Antibody Positive (See Note)
[2021-09-03 10:42] LABS: Rubella IgG Ab (UVM) Positive (See Note)
[2021-09-03 15:13] LABS: Chlamydia Result Negative (Negative); GC Result Negative (Negative)
[2021-09-05 14:17] LABS: Syphilis IgG w/Reflex Nonreactive (Nonreactive)
[2021-09-08 10:39] LABS: Buprenorphine Negative ng/mL (Cutoff: 5.0); Norbuprenorphine Negative ng/mL (Cutoff: 2.5)
[2021-09-09 00:17] LABS: Result Summary NEGATIVE; Specimen WB Whole Blood
== END 2021-09-01 03:57 | disposition home or self-care (01) ==
PROVIDERS: Advanced Practice Midwife; PCP Nurse Practitioner Family; Visit Provider Obstetrics & Gynecology
DX: Z34.91 Encounter for supervision of normal pregnancy, unspecified, first trimester
CPT/HCPCS: 80307; 86787; 86803; 86850; 86900; 86901; 87340; 87389; 87491; 87591; 81220; 84443; 85025; 86762; 86780; 87086

== ENCOUNTER 2021-09-09 13:12 | Emergency (ER) | payer MEDICAID, SELFPAY ==
[2021-09-09 13:16] VITALS: BP 141/70; PULSE 95; RESP 18; TEMP 36.5; O2SAT 98
--- NOTE | 2021-09-09 13:30 | DI.US_ITS ---
Exam(s) US OB 1ST TRIMESTER EXAM: US OB 1ST TRIMESTER CLINICAL HISTORY: first trimester bleeding. TECHNIQUE: First trimester obstetrical ultrasound was performed. COMPARISON: US US PELVIS TRANSVAGINAL from 08/08/2020 FINDINGS: There is an intrauterine gestational sac which contains a yolk sac and viable pole which exhibi ts heart rate of 168 bpm. Fortine-rump length measurement is 43 mm, corresponding to 11 weeks and 1 day gestational age. There is no evidence of subchorionic hemorrhage. Maternal ovaries: Both maternal ovaries appear unremarkable. There is no fluid in the cul-de-sac and adnexal regions. IMPRESSION:: Single viable intrauterine gestation which is approximately 11 weeks and 1 day gestatio nal age by crown rump length measurement, implying BAR of March 30, 20222020. There is no evidence of subchorionic hemorrhage. Cervical length is 3.6-3.8 cm There is no free fluid evident in the cul-de-sac. DATA REPOSITORY:
--- NOTE | 2021-09-09 13:52 | W.ED.GENAD ---
Discharge Plan Disposition Patient Disposition: HOME Condition: Improving Discharge Details Clinical Impression: Threatened Primary Care Provider: Rochelle Martin ED Provider: Jesus Resendiz Home Meds and New Rx's Prescriptions: Continued (DME) blood-glucose meter [FreeStyle Lite Meter] Kit See Rx Instructions .ROUTE .MEDSUPPLY Qty: 1 0RF Rx Instructions: As directed (DME) lancets [FreeStyle Lancets] 28 gauge misc See Rx Instructions .ROUTE .MEDSUPPLY Qty: 100 4RF Rx Instructions: QID testing (DME) FreeStyle Lite Strips Strip See Rx Instructions .ROUTE .MEDSUPPLY Qty: 100 4RF Rx Instructions: QID testing prenat.vits,angie,gfa-kvwa-axodp Tablet 1 tab PO DAILY 0RF Discharge Instructions Instructions: Threatened Miscarriage (ED) Additional Instructions: Please follow-up with Dr. Turcios for repeat examination. Please return the emergency department for worsening symptoms such as worsening bleeding worsening abdominal pain or other abnormal symptoms. Medical Decision Making <Tk Levy MD - Last Filed: 09/09/21 16:36> 31-year-old female G4, P1 at 11 weeks gestation presents with lower abdominal cramping and vaginal bleeding, past a quarter sized clot earlier this morning, hemodynamically stable resting comfortably abdomen soft nontender nondistended, normal external genitalia, no vaginal bleeding on speculum examination, does have slight erythema to cervix, patient does endorse a history of HPV and has had abnormal Pap smears. No mucopurulent discharge. Bedside ultrasound showing live IUP with cardiac activity present. Will order official ultrasound for record and to assess placenta. Consider threatened less likely appropriate placenta versus less likely placenta previa versus unlikely pelvic infection or uterine trauma. Patient is O-, given concern for threatened and passage of clot will administer RhoGam; given stability of patient, will discharge home with CASKET INSPECTOR follow-up after ultrasound Discussed case with patient's primary CASKET INSPECTOR Dr. Turcios, RhoGam to be given. Called pharmacy refer me to the labs lab appears RhoGam doses. I would like to give patient 300 mcg IM however per lab the RhoGam doses, and a prefilled 1500 unit syringe. They may need us to send a CBC or a type and screen however lab is checking the system and may be able to prepare the sample without repeat blood today. Patient received RhoGam and then will follow up with Dr. Turcios as scheduled. <Jesus Resendiz MD - Last Filed: 09/09/21 18:02> 31-year-old female G4, P1 at 11 weeks gestation presents with lower abdominal cramping and vaginal bleeding, past a quarter sized clot earlier this morning, hemodynamically stable resting comfortably abdomen soft nontender nondistended, normal external genitalia, no vaginal bleeding on speculum examination, does have slight erythema to cervix, patient does endorse a history of HPV and has had abnormal Pap smears. No mucopurulent discharge. Bedside ultrasound showing live IUP with cardiac activity present. Will order official ultrasound for record and to assess placenta. Consider threatened less likely appropriate placenta versus less likely placenta previa versus unlikely pelvic infection or uterine trauma. Patient is O-, given concern for threatened and passage of clot will administer RhoGam; given stability of patient, will discharge home with CASKET INSPECTOR follow-up after ultrasound Discussed case with patient's primary CASKET INSPECTOR Dr. Turcios, RhoGam to be given. Called pharmacy refer me to the labs lab appears RhoGam doses. I would like to give patient 300 mcg IM however per lab the RhoGam doses, and a prefilled 1500 unit syringe. They may need us to send a CBC or a type and screen however lab is checking the system and may be able to prepare the sample without repeat blood today. Patient received RhoGam and then will follow up with Dr. Turcios as scheduled. Pt signed out to me pending rhogam which was given without incident and she will f/u with obgyn HPI <Tk Levy MD - Last Filed: 09/09/21 16:36> General Date/Time Provider Initiated Documentation: 09/09/21 13:15. HPI Narrative: 31-year-old female at 11 weeks gestation, 1 prior miscarriage 1 prior and one prior live , endorses passing a quarter sized blood clot having some lower abdominal cramping earlier this morning. Denies other symptomatology. Follows with Dr. Turcios OBGyn Related Data Home Medications Medication Instructions Recorded Confirmed prenat.vits,angie,ely-wwnu-ujlgk 1 tab PO DAILY 08/08/20 09/01/21 blood sugar diagnostic (FreeStyle #100 ea 09/01/21 09/01/21 Lite Strips) blood-glucose meter (FreeStyle #1 ea 09/01/21 09/01/21 Lite Meter) lancets 28 gauge (FreeStyle #100 ea 09/01/21 09/01/21 Lancets) Previous Rx's Medication Instructions Recorded blood sugar diagnostic (FreeStyle #100 ea 09/01/21 Lite Strips) blood-glucose meter (FreeStyle #1 ea 09/01/21 Lite Meter) lancets 28 gauge (FreeStyle #100 ea 09/01/21 Lancets) Allergies Allergy/AdvReac Type Severity Reaction Status Date / Time cefaclor [From Ceclor] Allergy Mild unsure Unverified 09/01/21 09:39 General Stated Complaint: Abd Prob MAHENDRA: 3 Review of Systems <Tk Levy MD - Last Filed: 09/09/21 16:36> Narrative: Review of Systems Constitutional: negative Eyes: negative ENT: negative Cardiovascular: negative Respiratory: negative Gastrointestinal: negative : Vaginal bleeding, lower abdominal cramping Musculoskeletal: negative Skin: negative Neurologic: negative Psych: negative PFSH <Tk Levy MD - Last Filed: 09/09/21 16:36> All Active Problems (Updated 09/09/21 @ 16:36 by Tk Levy MD) Threatened (Acute) Rh negative state in antepartum period (Acute) (Acute) History of kidney infection (Acute) Left flank pain (Acute) Positive test (Acute) Blackout spell (Acute) Cervical disc herniation (Acute) Migraine headache with aura (Acute) Headache (Acute) Facial paresthesia (Acute) Paralysis of left upper extremity (Acute) Left leg weakness (Acute) Pre-conception counseling (Acute) Hirsutism (Acute) Menorrhagia (Acute) Postcoital bleeding (Acute) Cervical high risk HPV (human papillomavirus) test positive (Acute) Dysfunctional uterine bleeding (Acute) Polycystic disease, ovaries (Acute) Dysuria (Acute) Vaginitis (Acute) Bipolar I disorder (Acute 03/21/17) Currently no evidence of gavin or acute depression. BMI 38.0-38.9,adult (Acute 03/04/17) Medical History Anxiety Bipolar disorder in remission Surgical History section (07/27/17) 07/25/17. PC/S. Unsuccessful IOL at 41w. MKendal Olivoce. aoc/dd. Family History Mother Depression Father , car accident at age 33. Essential hypertension Bipolar disorder Sister Asthma Grandfather Stroke Grandmother Diabetes Grandfather Prostate cancer Cancer of kidney Grandmother Parkinsons disease Social History Smoking/Tobacco Use Status: Never Smoking risk assessment performed?: Yes Alcohol Intake: current Alcohol Intake frequency: holidays/special occasions only Drug use: Never Substance use type: does not use Household members: spouse, children and other Details: son Akhil Number of Children: 1 current occupation: works for [employer] What is your relationship status?: Panel score (0-1 are the most socially isolated patients): 1 Do you feel safe at home: Yes Do you feel safe in your relationship?: Yes Female Reproductive History Menstrual control method: copper IUCD History History 4 Para 1 Hx # Term Pregnancies Multiple births Hx # Pregnancies Ectopic pregnancies AB induced 1 Hx Number of Living Children 1 AB spontaneous 1 Past Pregnancies Del. Date GA/Weeks # Outcome Route Wgt Sex Labor Lgth Anesthesia Location [facility] 07/17/17 41 No Successful 3940.584 g Male [place] Delivery Date: 07/17/17 Last Updated by: Paige Meyer CNM IOL attempted. pitocin and ripening balloon unsuccessful. Exam <Tk Levy MD - Last Filed: 09/09/21 16:36> Narrative Exam Narrative: Physical Examination General: alert, awake, cooperative, resting comfortably, no acute distress HEENT: normocephalic, atraumatic; PERRL, EOM intact, conjunctiva normal; no nasal discharge; moist mucous membranes, oral and pharyngeal mucosa normal, tolerating secretions Neck: supple, trachea midline; full ROM Chest: normal to inspection Respiratory: normal respiratory effort, speaking in full sentences, clear to auscultation, no wheezing, rales or rhonchi Cardiac: regular rate, regular rhythm, S1S2 intact, no murmurs rubs or gallops GI: abdomen soft, non-tender, non-distended; no palpable mass or hepatosplenomegaly : Normal external genitalia, no active vaginal bleeding, patient does have mild erythema to cervical, cervical os is closed Skin: no lesions, rashes or trauma appreciated Neuro: AAOx3, normal speech, moving all extremities Psych: Appropriate mood and affect Course <Tk Levy MD - Last Filed: 09/09/21 16:36> Vital Signs Vital signs: Vital Signs Temperature 36.5 C 09/09/21 13:16 Pulse 95 H 09/09/21 13:16 Respiratory Rate 18 09/09/21 13:16 Blood Pressure 141/70 H 09/09/21 13:16 Pulse Oximetry 98 09/09/21 13:16 Temperature 36.5 C 09/09/21 13:16 Temperature Source Tympanic 09/09/21 13:16 Pulse 95 H 09/09/21 13:16 Respiratory Rate 18 09/09/21 13:16 Respiratory Effort 09/09/21 13:20 Blood Pressure 141/70 H 09/09/21 13:16 Blood Pressure Position Supine 09/09/21 13:16 Pulse Oximetry 98 09/09/21 13:16 Oxygen Delivery Method Room Air 09/09/21 13:16 Oxygen Flow Rate 0 09/09/21 13:16 Pain Level 7 09/09/21 13:16 Lab/Test Results Lab/Test Results: POC- Test(urine) Positive Sign Out <Tk Levy MD - Last Filed: 09/09/21 16:36> Sign Out Data: Sign Out Comment: awaiting Rhogam preparation; pink or purple top blood draw for lab, nurse informed Last updated by Tk Levy MD at 09/09/21 16:41
== END 2021-09-09 18:02 | disposition home or self-care (01) ==
PROVIDERS: Emergency Provider Emergency Medicine; PCP Nurse Practitioner Family
DX: O20.0 Threatened abortion (principal); Z3A.11 11 weeks gestation of pregnancy; O26.891 Other specified pregnancy related conditions, first trimester; Z67.41 Type O blood, Rh negative
CPT/HCPCS: 36415; 81025; 86850; 90384; 96372; 99284; 76801; 99283; J2790

== ENCOUNTER 2021-10-21 17:28 | Emergency (ER) | payer MEDICAID, SELFPAY ==
[2021-10-21 17:31] VITALS: BP 130/72; PULSE 96; RESP 19; TEMP 36.6; O2SAT 100
[2021-10-21 18:07] LABS: Bilirubin Negative (Negative); Blood Negative (Negative); Clarity Clear (Clear); Glucose Negative (Negative); Ketones Negative (Negative); Leukocyte Esterase Trace (Negative); Nitrite Negative (Negative); Specific Gravity >= 1.030 (1.005-1.025); Urobilinogen 0.2 EU/dL (Up TO 0.2); pH 6.5 (5-8)
[2021-10-21 18:17] LABS: Bacteria Many HPF (Negative); C & S Indicated? No/Sq. Contamination; Casts Negative LPF (Negative); Crystals Negative HPF (Negative); Epithelial Cells Many HPF (Negative); Mucus Negative (Negative); RBC Negative HPF (0-2); WBC Negative HPF (0-5)
--- NOTE | 2021-10-21 18:28 | ED.GENADUL_ITS ---
Discharge Plan Disposition Patient Disposition: HOME Condition: Stable Discharge Details Clinical Impression: Abdominal pain Primary Care Provider: Rochelle Martin ED Provider: Tk Levy Home Meds and New Rx's Prescriptions: No Action (DME) blood-glucose meter [FreeStyle Lite Meter] Kit See Rx Instructions .ROUTE .MEDSUPPLY Qty: 1 0RF Rx Instructions: As directed (DME) lancets [FreeStyle Lancets] 28 gauge misc See Rx Instructions .ROUTE .MEDSUPPLY Qty: 100 4RF Rx Instructions: QID testing (DME) FreeStyle Lite Strips Strip See Rx Instructions .ROUTE .MEDSUPPLY Qty: 100 4RF Rx Instructions: QID testing prenat.vits,angie,fap-mknv-ulqua Tablet 1 tab PO DAILY 0RF Discharge Instructions Instructions: Abdominal Pain in (ED) Additional Instructions: Please be seen by Dr. Turcios this week or early next week. Please return to the emergency department for any worsening symptoms specifically worsening cramps nausea vomiting fevers vaginal bleeding or discharge or other abnormal symptoms. Medical Decision Making 31-year-old female at approximately 17 weeks gestation presents with lower abdominal cramping and back discomfort, intermittent in nature over the last day, denies dysuria hematuria or increased urinary frequency, denies fevers or chills denies vaginal bleeding or discharge. Endorses decreased movement. Patient is hemodynamically stable afebrile nontoxic. Bedside ultrasound showing live IUP with normal movement, heart rate calculated at ap proximately 145 bpm. No evidence of UTI on UA, likely partially contaminated sample given leuks and squames, no WBCs or nitrites. Patient endorses is she will follow-up closely with Dr. Turcios. Consider threatened versus spasms of growing uterus versus less likely abruption or pelvic infection or UTI. Patient comfortable going home will return to the emergency department for any worsening symptoms. HPI General Date/Time Provider Initiated Documentation: 10/21/21 17:35 . HPI Narrative: 31-year-old female at approximately 17 weeks gestation G2, P1, presents with back cramping and lower abdominal cramping intermittent over the last day brief in nature denies vaginal bleeding or vaginal discharge. Also endorses that she has felt decreased movement. Followed by Dr. Turcios of [employer]. Endorses recent stress at work and home. Feels safe however is under emotional stress. Denies urinary symptomatology Related Data Home Medications Medication Instructions Recorded Confirmed prenat.vits,angie,qus-pwpa-apaik 1 tab PO DAILY 08/08/20 10/21/21 blood sugar diagnostic (FreeStyle #100 ea 09/01/21 10/01/21 Lite Strips) blood-glucose meter (FreeStyle #1 ea 09/01/21 10/01/21 Lite Meter) lancets 28 gauge (FreeStyle #100 ea 09/01/21 10/01/21 Lancets) Previous Rx's Medication Instructions Recorded blood sugar diagnostic (FreeStyle #100 ea 09/01/21 Lite Strips) blood-glucose meter (FreeStyle #1 ea 09/01/21 Lite Meter) lancets 28 gauge (FreeStyle #100 ea 09/01/21 Lancets) Allergies Allergy/AdvReac Type Severity Reaction Status Date / Time cefaclor [From Ceclor] Allergy Mild unsure Unverified 10/21/21 17:38 General Stated Complaint: Nk/Back Pain MAHENDRA: 3 Review of Systems Narrative: Review of Systems Constitutional: negative Eyes: negative ENT: negative Cardiovascular: negative Respiratory: negative Gastrointestinal: Abdominal cramping : Abdominal cramping Musculoskeletal: negative Skin: negative Neurologic: negative Psych: negative PFSH All Active Problems (Updated 10/21/21 @ 18:33 by Tk Levy MD) Abdominal pain (Acute) Rh negative state in antepartum period (Acute) (Acute) History of kidney infection (Acute) Left flank pain (Acute) Positive test (Acute) Blackout spell (Acute) Cervical disc herniation (Acute) Migraine headache with aura (Acute) Headache (Acute) Facial paresthesia (Acute) Paralysis of left upper extremity (Acute) Left leg weakness (Acute) Pre-conception counseling (Acute) Hirsutism (Acute) Menorrhagia (Acute) Postcoital bleeding (Acute) Cervical high risk HPV (human papillomavirus) test positive (Acute) Dysfunctional uterine bleeding (Acute) Polycystic disease, ovaries (Acute) Dysuria (Acute) Vaginitis (Acute) Bipolar I disorder (Acute 03/21/17) Currently no evidence of gavin or acute depression. BMI 38.0-38.9,adult (Acute 03/04/17) Medical History Anxiety Bipolar disorder in remission Surgical History section (07/27/17) 07/25/17. PC/S. Unsuccessful IOL at 41w. Candace [place]anda[place]de. aoc/dd. Family History Mother Depression Father , car accident at age 33. Essential hypertension Bipolar disorder Sister Asthma Grandfather Stroke Grandmother Diabetes Grandfather Prostate cancer Cancer of kidney Grandmother Parkinsons disease Social History Smoking/Tobacco Use Status: Never Smoking risk assessment performed?: Yes Alcohol Intake: current Alcohol Intake frequency: holidays/special occasions only Drug use: Never Substance use type: does not use Household members: spouse, children and other Details: son Akhil Number of Children: 1 current occupation: works for [employer] What is your relationship status?: Panel score (0-1 are the most socially isolated patients): 1 Do you feel safe at home: Yes Do you feel safe in your relationship?: Yes Female Reproductive History Menstrual control method: copper IUCD History History 4 Para 1 Hx # Term Pregnancies Multiple births Hx # Pregnancies Ectopic pregnancies AB induced 1 Hx Number of Living Children 1 AB spontaneous 1 Past Pregnancies Del. Date GA/Weeks # Outcome Route Wgt Sex Labor Lgth Anesthes ia Location [facility] 07/17/17 41 No Successful 3940.584 g Male [place] Delivery Date: 07/17/17 Last Updated by: Nisha Turcios M.D. IOL attempted. pitocin and ripening balloon unsuccessful. Exam Narrative Exam Narrative: Physical Examination General: alert, awake, cooperative, resting comfortably, no acute distress HEENT: normocephalic, atraumatic; PERRL, EOM intact, conjunctiva normal; no nasal discharge; moist mucous membranes, oral and pharyngeal mucosa normal, tolerating secretions Neck: supple, trachea midline; full ROM Chest: normal to inspection Respiratory: normal respiratory effort, speaking in full sentences, clear to auscultation, no wheezing, rales or rhonchi Cardiac: regular rate, regular rhythm, S1S2 intact, no murmurs rubs or gallops GI: abdomen soft, non-tender, gravid uterus; no palpable mass or hepatosplenomegaly Skin: no lesions, rashes or trauma appreciated Neuro: AAOx3, normal speech, moving all extremities Psych: Appropriate mood and affect Course Vital Signs Vital signs: Vital Signs Temperature 36.6 C 10/21/21 17:31 Pulse 96 H 10/21/21 17:31 Respiratory Rate 19 10/21/21 17:31 Blood Pressure 130/72 10/21/21 17:31 Pulse Oximetry 100 10/21/21 17:31 Temperature 36.6 C 10/21/21 17:31 Temperature Source Tympanic 10/21/21 17:31 Pulse 96 H 10/21/21 17:31 Respiratory Rate 19 10/21/21 17:31 Respiratory Effort 10/21/21 17:37 Blood Pressure 130/72 10/21/21 17:31 Blood Pressure Position Sitting 10/21/21 17:31 Pulse Oximetry 100 10/21/21 17:31 Oxygen Delivery Method Room Air 10/21/21 17:31 Oxygen Flow Rate 0 10/21/21 17:31 Pain Level 10 10/21/21 17:31 Lab/Test Results Lab/Test Results: Laboratory Tests Range/Units 10/21/21 17:45 Urine Color (Yellow) Yellow Urine Clarity (Clear) Clear Urine pH (5-8) 6.5 Ur Specific [place] (1.005-1.025) >= 1.030 H Urine Protein (Negative) mg/dL Negative Urine Ketones (Negative) mg/dL Negative Urine Blood (Negative) Negative Urine Nitrite (Negative) Negative Urine Bilirubin (Negative) Negative Urine Urobilinogen (Up TO 0.2) EU/dL 0.2 Ur Leukocyte Esterase (Negative) Trace H Urine RBC (0-2) HPF Negative Urine WBC (0-5) HPF Negative Ur Epithelial Cells (Negative) HPF Many Urine Crystals (Negative) HPF Negative Urine Bacteria (Negative) HPF Many Urine Casts (Negative) LPF Negative Urine Mucus (Negative) Negative Ur Culture Indicated? No/Sq. Contamination Urine Glucose (Negative) mg/dL Negative
[2021-10-21 18:52] VITALS: BP 132/75; PULSE 77; RESP 16; TEMP 36.6; O2SAT 99
== END 2021-10-21 18:53 | disposition home or self-care (01) ==
PROVIDERS: Emergency Provider Emergency Medicine; PCP Nurse Practitioner Family
DX: O26.892 Other specified pregnancy related conditions, second trimester (principal); R10.9 Unspecified abdominal pain; Z3A.17 17 weeks gestation of pregnancy
CPT/HCPCS: 99282; 81003; 81015; 99283

== ENCOUNTER → 2021-10-23 00:40 | Outpatient (CLI) | payer MEDICAID, SELFPAY ==
--- NOTE | 2021-10-23 06:30 | DI.US_ITS ---
Exam(s) US OB 2-3 TRIMESTER EXAM: US OB 2-3 TRIMESTER CLINICAL HISTORY: ,z34.90. TECHNIQUE: Transabdominal obstetrical ultrasound performed. COMPARISON: US US OB 1ST TRIMESTER from 09/09/2021 FINDINGS: Transabdominal obstetrical ultrasound performed. FINDINGS: Number of fetuses: One. position: Variable. Placental grade: 1 Placental location: Fundal. No evidence of previa. Question of fibroid versus myometrial contractio n. BIOMETRIC DATA: BPD: 39 millimeters, 17+ 6 weeks HC: 149 millimeters, 18+ 0 weeks AC: 114 millimeters, FL: 17+ 1 weeks 26 millimeters, 18+ 0 weeks Cisterna Magna: 2.2 millimeters Cerebellum: 1.5 cm EFW: 204 grms 68% Composite Age: 17+ 5 weeks EDC by US: 28 March 2022 Heart Rate: 147BPM Amniotic fluid: Amount of fluid is visually within normal limits. ANATOMICAL SURVEY: Four-chambered heart: Unremarkable. LVOT: Unremarkable. RVOT: Unremarkable. Left-sided stomach: Unremarkable. urinary bladder: Unremarkable. Bilateral kidneys: Unremarkable. Three-vessel cord: Unremarkable. Cord insertion: Unremarkable. Umbilical artery velocity: Unremarkable. Posterior fossa:Unremarkable. ventricles: Unremarkable. nose: Unremarkable. lips: Unremarkable. palate: Unremarkable. spine: Unremarkable. Two arms and two legs: Unremarkable. IMPRESSION: 1. Single live intrauterine gestation 17+ 5 weeks.. 2. Normal anatomic survey. DATA REPOSITORY:
[2021-12-16 11:41] VITALS: BP 116/59; PULSE 77; TEMP 36.9
== END ==
PROVIDERS: PCP Nurse Practitioner Family; Visit Provider Advanced Practice Midwife
DX: Z34.92 Encounter for supervision of normal pregnancy, unspecified, second trimester (principal); Z3A.17 17 weeks gestation of pregnancy
CPT/HCPCS: 76805

== ENCOUNTER 2021-12-16 11:18 | Outpatient (CLI) | payer MEDICAID, SELFPAY ==
[2021-12-16 11:41] VITALS: BP 116/59; PULSE 77
--- NOTE | 2021-12-22 13:04 | W.OBNST ---
Date of service: 12/22/21 Time of Service: 13:04 NST Evaluation Reason for NST Reasons for Nonstress Test: OTHER, SEE COMMENT Reason for NST Other: well-being. Gestational Age Gestational Age in Weeks and Days: 25 Weeks and 0Days Test and Monitor Explained Test/Monitor Explained: Test Explained, Monitor Explained and Patient Verbalized Understanding Urine Results Urine Protein: Negative Urine Ketones: Negative Urine Glucose: Negative Urine Blood: Negative NST Information Date on Monitor: 12/16/21 Time on Monitor: 11:05 Date off Monitor: 12/16/21 Time off Monitor: 12:03 Total Time on Monitor: 58 NST Interventions: PO Hydration NST Evaluation Patient States Movement: Present FHR Baseline: 130 Variability: Moderate 6-25 bpm Accelerations: 10x10 Decelerations: None NST Results: Reactive Note NST Note Note: Pt complained of abdominal pain,currently 25w EGA. Pt was worried that she was having contractions. PE unremarkable: no focal uterine tenderness. Pain localized to inguinal region L>R. No contractions on External Tocometer. SVE: cervix closed, long and posterior. SURY not well developed. Pt observed and discharged to home. Plan f/u for previously scheduled vitamin. NST Reviewed and Verified by: Nisha Turcios
== END 2021-12-16 12:08 | disposition home or self-care (01) ==
LOC: BCD 11:20 → OBS 11:22
PROVIDERS: PCP Nurse Practitioner Family; Visit Provider Advanced Practice Midwife
DX: O26.892 Other specified pregnancy related conditions, second trimester (principal); R10.9 Unspecified abdominal pain; Z3A.25 25 weeks gestation of pregnancy
CPT/HCPCS: 59025

== ENCOUNTER 2022-01-05 18:29 | Outpatient (REF) | payer MEDICAID, SELFPAY | END 2022-01-05 18:30 | disposition home or self-care (01) | LOC: LBN 18:29 | PROVIDERS: PCP Nurse Practitioner Family; Visit Provider Obstetrics & Gynecology | DX: Z34.92 Encounter for supervision of normal pregnancy, unspecified, second trimester (principal); Z3A.27 27 weeks gestation of pregnancy; R82.998 Other abnormal findings in urine | CPT/HCPCS: 87086 ==

== ENCOUNTER 2022-01-19 08:25 | Outpatient (CLI) | payer MEDICAID, SELFPAY ==
[2022-01-19 08:39] LABS: Absolute Basophil Count 0.01 10^3/uL (0.0-0.2); Absolute Eosinophil Count 0.05 10^3/uL (0.0-0.7); Absolute Lymphocyte Count 1.39 10^3/uL (1.2-3.4); Absolute Monocyte Count 0.16 10^3/uL (0.1-0.8); Absolute Neutrophil Count 5.65 10^3/uL (1.2-6.7); Basophils % 0.1; Eosinophils % 0.7; HCT 34.8 % (36.0-46.0); HGB 11.6 g/dL (11.2-15.7); Immature Grans % 1.4; Lymphocytes % 18.9; MCH 30.2 pg (27.0-33.0); MCHC 33.3 % (32.0-36.0); MCV 91 fL (80-95); Monocytes % 2.2; Neutrophils % 76.7; Platelet Count 193 10^3/uL (130-400); RBC 3.84 10^6/uL (3.93-5.22); RDW 13.5 % (11.7-14.6); RDW-SD 44.1 fL; WBC 7.36 10^3/uL (4.4-10.8)
== END 2022-01-19 08:26 | disposition home or self-care (01) ==
LOC: LBO 08:26
PROVIDERS: PCP Nurse Practitioner Family; Visit Provider Obstetrics & Gynecology
DX: O26.893 Other specified pregnancy related conditions, third trimester; Z67.91 Unspecified blood type, Rh negative
CPT/HCPCS: 36415; 86850; 86900; 86901; 90384; 85025

== ENCOUNTER → 2022-01-21 12:44 | Outpatient (CLI) | payer MEDICAID, SELFPAY ==
--- NOTE | 2022-01-21 12:00 | DI.US_ITS ---
Exam(s) US LOWER EXTREMITY VENOUS LT EXAM: US LOWER EXTREMITY VENOUS LT CLINICAL HISTORY: evaluate for DVT r60.0 edema z34.90 TECHNIQUE: Left lower extremity venous ultrasound performed using grayscale, color-flow, and spectra l Doppler analysis. COMPARISON: No exams were available for comparison FINDINGS: The left common femoral, femoral and popliteal veins demonstrate normal compressibility, augmentation , and color Doppler. The posterior tibial veins are patent. The saphenofemoral junction is unremarka ble. There is no evidence of a Noriega cyst. The soft tissues are unremarkable. IMPRESSION: No evidence of the left lower extremity DVT. DATA REPOSITORY:
== END ==
PROVIDERS: PCP Nurse Practitioner Family; Visit Provider Obstetrics & Gynecology
DX: Z3A.29 29 weeks gestation of pregnancy (principal); O12.03 Gestational edema, third trimester
CPT/HCPCS: 93971

== ENCOUNTER 2022-03-02 10:59 | Outpatient (CLI) | payer MEDICAID, SELFPAY ==
[2022-03-02 11:16] VITALS: BP 127/66; PULSE 85
[2022-03-02 11:26] LABS: Source Nasal/Nares
[2022-03-02 11:33] VITALS: BP 127/66; PULSE 85; TEMP 36.9
[2022-03-02 12:06] LABS: COVID-19 PCR Negative (Negative)
== END 2022-03-02 12:14 | disposition home or self-care (01) ==
LOC: LBN 11:02 → OBS 11:09
PROVIDERS: PCP Nurse Practitioner Family; Visit Provider Obstetrics & Gynecology
DX: Z34.93 Encounter for supervision of normal pregnancy, unspecified, third trimester (principal); Z36.85 Encounter for antenatal screening for Streptococcus B; Z20.822 Contact with and (suspected) exposure to COVID-19; Z3A.35 35 weeks gestation of pregnancy
CPT/HCPCS: 87635; 59025; 87081

== ENCOUNTER 2022-03-02 17:40 | Outpatient (REF) | payer MEDICAID, SELFPAY ==
[2022-03-02 13:21] LABS: *AMPHETAMINES SCREEN URINE Negative (Negative); *BARBITURATES SCREEN URINE Negative (Negative); *BENZODIAZEPINES SCREEN URINE Negative (Negative); Cannabinoids THC Negative (Negative); Cocaine Screen,Urine Negative (Negative); METHADONE URINE SCREEN Negative (Negative); OPIATES URINE SCREEN Positive (Negative)
[2022-03-02 13:33] LABS: Tricyclic Antidepressants Negative (Negative)
[2022-03-06 15:18] LABS: Buprenorphine Negative ng/mL (Cutoff: 5.0)
== END 2022-03-02 17:41 | disposition home or self-care (01) ==
LOC: LBN 17:40
PROVIDERS: PCP Nurse Practitioner Family; Visit Provider Obstetrics & Gynecology
DX: Z34.93 Encounter for supervision of normal pregnancy, unspecified, third trimester (principal); Z3A.35 35 weeks gestation of pregnancy
CPT/HCPCS: 80307

== ENCOUNTER 2022-03-10 10:30 | Inpatient (IN) | payer MEDICAID, SELFPAY ==
[2022-03-10] VITALS (9 sets, daily range): BP systolic 107–130; BP diastolic 61–73; PULSE 86–111; RESP 16–18; TEMP 36.4–36.7; O2SAT 97–99; BMI 43.7
[2022-03-10 11:20] LABS: ROM Plus Negative
[2022-03-10 11:58] LABS: Source Nasal/Nares
--- NOTE | 2022-03-10 11:58 | W.PM.OBHPL1 ---
Date of service: 03/10/22 Time of Service: 11:58 Assessment and Plan Assessment and plan (1) History of delivery: Status: Chronic Assessment and plan: Patient wishes to proceed with a repeat delivery at 37W0D EGAPreop counseling: She was informed of the risks of procedure including risk of damage to bowel, bladder, and blood vessels during the time of the delivery. If any of those injuries were to occur she may require a repair at the time of surgery or blood transfusion or possible hysterectomy. I reviewed the risk of infection and the administration of IV Abx prior to the surgery. Her questions were answered. ORT notified (2) Uterine contractions: Status: Acute Assessment and plan: Currently status is reassuring (3) Declines (vaginal after ) trial: Status: Acute OB-HPI Labor/Delivery History of Present Illness Reason for Visit: Delivery Chief Complaint: Uterine Contractions; Suspected Labor. BAR Calculator Estimated Delivery Date Method Current WG Current Estimate 03/31/22 LMP (Uncertain) 37w 0d Other Estimates 04/01/22 Ultrasound #1 36w 6d History of Present Expected Delivery Route/Plan MD candelaria - RCS. FOB - Raul Quiroga (second child together)- unvaccinated for covid-19 Baby girl Booked for repeat C/S on 03/24/22 Specific Issues/Plan 1. Prior CS - RCS scheduled 03/24, does not want BTL 2. Not covid vaccinated, strongly opposed to it 3. treated for pyelonephritis with macroboid in first trimester- urine culture neg and ABx discontinued. . 4. History of migraine with aura 5. Bipolar disorder- no treatment currently, therapy in the past. 6. BMI 38, history of PCOS - declines early GTT, testing QID x 2 weeks CBGs Nl. Will do same at 28w EGA 7. ASCUS pap with + HPV, colposcopy 05/18, repeat pap post . 8. RH neg. Rhogam in ED @ 11w EGA after single bleeding episode. Rpt at 28w. 9. Panorama LR, female, CF neg 10. Passed blood clot 09/18/21. Nl pelvic u/s. Rhogam given. No further bleeding. Narrative: Patient awoke last night with regular painful uterine contractions that increased in intensity and frequency by this morning. She had an episode of nausea and vomiting and [facility] that she was coming in for evaluation. Informed Consent Informed Consent: Section Delivery Review of Systems Constitutional Constitutional: Reports poor appetite Cardiovascular Cardiovascular: Reports system reviewed and no additional complaints, except as documented Respiratory Respiratory: Reports system reviewed and no additional complaints, except as documented Gastrointestinal Gastrointestinal: Reports nausea and Reports vomiting Genitourinary Genitourinary: Reports vaginal discharge (Patient denies a gush of fluid this morning. + increased clear vaginal d/c) Musculoskeletal Comments: Patient reports increased edema in hands and feet. Psychiatric Psychiatric: Reports system reviewed and no additional complaints, except as documented PFSH All Active Problems (Updated 03/10/22 @ 12:11 by Nisha Turcios MD) Declines (vaginal after ) trial (Acute) Uterine contractions (Acute) History of delivery (Chronic) Edema of left lower leg (Acute) Rh negative status during (Acute) Encounter for supervision of other normal , second trimester (Acute) Rh negative state in antepartum period (Acute) (Acute) History of kidney infection (Acute) Left flank pain (Acute) Positive test (Acute) Blackout spell (Acute) Cervical disc herniation (Acute) Migraine headache with aura (Acute) Headache (Acute) Facial paresthesia (Acute) Paralysis of left upper extremity (Acute) Left leg weakness (Acute) Pre-conception counseling (Acute) Hirsutism (Acute) Menorrhagia (Acute) Postcoital bleeding (Acute) Cervical high risk HPV (human papillomavirus) test positive (Acute) Dysfunctional uterine bleeding (Acute) Polycystic disease, ovaries (Acute) Dysuria (Acute) Vaginitis (Acute) Bipolar I disorder (Acute 03/21/17) Currently no evidence of gavin or acute depression. BMI 38.0-38.9,adult (Acute 03/04/17) Medical History Anxiety Bipolar disorder in remission Surgical History section (07/27/17) 07/25/17. PC/S. Unsuccessful IOL at 41w. MKendal Landaverde. aoc/dd. Family History Mother Depression Father , car accident at age 33. Essential hypertension Bipolar disorder Sister Asthma Grandfather Stroke Grandmother Diabetes Grandfather Prostate cancer Cancer of kidney Grandmother Parkinsons disease Social History Smoking/Tobacco Use Status: Never Smoking risk assessment performed?: Yes Alcohol Intake: current Alcohol Intake frequency: holidays/special occasions only Drug use: Never Substance use type: does not use Household members: spouse, children and other Details: son Akhil Number of Children: 1 current occupation: works for [employer] What is your relationship status?: Panel score (0-1 are the most socially isolated patients): 1 Do you feel safe at home: Yes Do you feel safe in your relationship?: Yes Female Reproductive History Menstrual control method: copper IUCD History History 4 Para 1 Hx # Term Pregnancies Multiple births Hx # Pregnancies Ectopic pregnancies AB induced 1 Hx Number of Living Children 1 AB spontaneous 1 Past Pregnancies Del. Date GA/Weeks # Preg Succ Route Wgt Sex Labor Lgth Anesthesia Location Prov Complic 07/17/17 41 No 8 lb 11 oz Male [place] Delivery Date: 07/17/17 Last Updated by: Nisha Turcios M.D. IOL attempted. pitocin and ripening balloon unsuccessful. Akhil. Meds Allergies and Home Medications Allergies Allergy/AdvReac Type Severity Reaction Status Date / Time cefaclor [From [facility]] Allergy Mild unsure Unverified 03/02/22 10:47 Home Medications Medication Instructions Recorded Confirmed Type prenat.vits,angie,hfk-iysw-wiqzn 1 tab PO DAILY 08/08/20 03/02/22 History Exam Physical Exam Vital signs: Temp 98.1 F 03/10/22 10:30 Vital Signs Reviewed: Yes Constitutional Constitutional: mild distress (Breathing through contractions.) and obese Detailed Labor and Delivery Exam Dilation: 0 Effacement (%): 25 station: -2 Position: OA Cervix position: anterior Consistency: soft Pollard Score: Cervical Points Exam 0 1 2 3 Dilation Closed 1-2cm 3-4 cm 5-6cm Effacement 0-30% 40-50% 60-70% 80% Consistency Firm Medium Soft Station -3 -2 -1,0 +1,+2 Position Posterior Mid Anterior POLLARD Score(Cervical Ripeness Score): 4 Amniotic Membrane Status: Intact ROM Plus: Negative Monitor Mode: External Contraction Frequency(min): Irregular Contraction Intensity: Mild/Moderate Fetus A Heart Rate Baseline: 170 Monitor Accelerations: 15 X 15 Monitor Decelerations: None Variability: Moderate (6-25 BPM) Presentation: Cephalic Categories: Category I Est. Weight: 3800 lb Neck Exam Neck Exam: Normal Chest/Brest/Axilla Exam Chest Exam: Not Done Breast Exam Breast Exam: Not Done Respiratory Exam Respiratory Exam: Normal Cardiovascular Exam Cardiovascular Exam: Normal Abdominal Exam Abdominal Exam: Normal (No right or left upper quadrant tenderness) Rectal Exam Rectal Exam: Not Done Exam Exam: Normal Extremities Exam Extremities Exam: Normal Back/Spine/Pelvis Exam Back Exam: Normal Pelvis Adequate: No (Not applicable) Skin Exam Skin Exam: Normal Neurological Exam Neurological Exam: Normal Psychiatric Exam Psychiatric Exam: Normal (Patient is anxious about the change in her plans but is looking forward to delivery) Results Results Group Beta Strep: Negative Blood Type: O- Rubella Status: Immune Varicella Immunity: Immune Risk Assessment Risk for Shoulder Dystocia Historical/Initial OB: NEGATIVE FOR: Pelvic Abnormality, Pre- BMI>30, Previous Shoulder Dystocia or Previous Macrosomia Risk for Pre-Eclampsia Date Initiated/Initials: 09/01/21 Yes, if one or more: NEGATIVE FOR: Hx Pre-E/Gest HTN, Chronic HTN, Multiple Gestation, Pre-gestational DM, Renal Disease, Systemic Lupus or APA Syndrome Yes, if 2 or more: POSITIVE FOR: BMI>30, Mother/Sister w/ Pre-E and Previous IUGR; NEGATIVE FOR: Nulliparity, Age>= 35 yrs, >10yr btwn pregnancies or ethinicty Risk for Post- Hemorrhage Initial: NEGATIVE FOR: Multiple Gestation, Previous PPH, Known Clotting Deficiency, Grand Multiparity or Anticoagulation Risks Reviewed Risks Reviewed Upon Admission: Yes
[2022-03-10 12:01] LABS: HCT 35.9 % (36.0-46.0); HGB 12.1 g/dL (11.2-15.7); MCH 30.3 pg (27.0-33.0); MCHC 33.7 % (32.0-36.0); MCV 90 fL (80-95); MPV 10.2 fL (8.0-11.0); Platelet Count 218 10^3/uL (130-400); RDW 13.6 % (11.7-14.6); RDW-SD 44.5 fL; WBC 8.47 10^3/uL (4.4-10.8)
--- NOTE | 2022-03-10 12:19 | W.ANESPRE ---
General Info Date of Service Date Performed: 03/10/22 Height: 5 ft 3 in Weight: 112.151 kg Body Mass Index (BMI): 43.7 Surgical Procedure: Operation Date: 03/10/22 12:55 Proposed Procedure Side Surgeon p Repeat Section Nisha Turcios MD s Tubal Ligation Nisha Turcios MD Meds Allergies and Home Medications Allergies Allergy/AdvReac Type Severity Reaction Status Date / Time cefaclor [From [facility]] Allergy Mild unsure Unverified 03/02/22 10:47 Home Medication Medication Instructions Recorded prenat.vits,angie,fzm-umtq-ybhfn 1 tab PO DAILY 08/08/20 Current Visit Medications: Current Medications Generic Name Dose Route Start Last Admin Trade Name Freq PRN Reason Stop Dose Admin Citric Acid/Sodium Citrate 30 ml 03/10/22 12:00 Sodium Citrate 30 Ml Cup PO 03/10/22 16:00 PREOP DOM Ringer's Solution 1,000 mls @ 200 mls/hr 03/10/22 11:30 IV INFUSION DOM Cefazolin Sodium/Dextrose 2 gm in 50 mls @ 100 mls/hr 03/10/22 11:30 Ancef Duplex IVPB 03/10/22 16:00 PREOP DOM Azithromycin 500 mg/ Sodium 250 mls @ 250 mls/hr 03/10/22 11:30 Chloride IVPB 03/10/22 16:00 PREOP DOM Sodium Chloride 500 mls @ 0 mls/hr 03/10/22 11:23 Saline 500ml Bag IV PRN PRN As Directed IV Miscellaneous Supplies 1 each 03/10/22 11:30 Iv Access IV DIRECTED DOM Sodium Chloride 0 ml 03/10/22 11:23 Normal Saline Flush 10 Ml Syr IVP PRN PRN PFSH Active Problems Active Problems: Problem Status Onset Code Declines (vaginal after ) trial O34.219 Uterine contractions O47.9 History of delivery Z98.891 Edema of left lower leg R60.0 Rh negative status during O26.899, Z67.91 Encounter for supervision of other normal , second trimester Z34.82 Rh negative state in antepartum period O26.899, Z67.91 Z34.90 History of kidney infection Z87.440 Left flank pain R10.9 Positive test Z32.01 Blackout spell R55 Cervical disc herniation M50.20 Migraine headache with aura G43.109 Headache R51.9 Facial paresthesia R20.2 Paralysis of left upper extremity G83.24 Left leg weakness R29.898 Pre-conception counseling Z31.69 Hirsutism L68.0 Menorrhagia N92.0 Postcoital bleeding N93.0 Cervical high risk HPV (human papillomavirus) test positive R87.810 Dysfunctional uterine bleeding N93.8 Polycystic disease, ovaries E28.2 Dysuria R30.0 Vaginitis N76.0 Bipolar I disorder 03/21/17 F31.9 BMI 38.0-38.9,adult 03/04/17 Z68.38 Medical History Medical History Anxiety Bipolar disorder in remission Surgical History Surgical History section (07/27/17) 07/25/17. PC/S. Unsuccessful IOL at 41w. Candace Landaverde. aoc/dd. Tobacco Smoking/Tobacco Use Status: Never Alcohol Alcohol Intake: current Alcohol intake frequency: holidays/special occasions only Substance Use Substance use: Never Substance use type: does not use Prental History History 4 Para 1 Hx # Term Pregnancies Multiple births Hx # Pregnancies Ectopic pregnancies AB induced 1 Hx Number of Living Children 1 AB spontaneous 1 Past Pregnancies Del. Date GA/Weeks # Preg Succ Route Wgt Sex Labor Lgth Anesthesia Location Prov Complic 07/17/17 41 No 3940.584 g Male [place] Delivery Date: 07/17/17 Last Updated by: Nisha Turcios M.D. IOL attempted. pitocin and ripening balloon unsuccessful. Akhil. Vital Signs and Lab Results Vital Signs Most Recent Vital Signs in EMR: Most Recent Vital Signs Temp 36.7 C 03/10/22 10:30 Lab Results Result Diagrams: 03/10/22 11:50 Blood Type / Crossmatch: No Data to Display Complete Blood Count: White Blood Count 8.47 10^3/uL (4.4-10.8) 03/10/22 11:50 Red Blood Count 4.00 10^6/uL (3.93-5.22) 03/10/22 11:50 Hemoglobin 12.1 g/dL (11.2-15.7) 03/10/22 11:50 Hematocrit 35.9 % (36.0-46.0) L 03/10/22 11:50 Platelet Count 218 10^3/uL (130-400) 03/10/22 11:50 Complete Metabolic Panel: No Data to Display Liver Function Panel: No Data to Display Coagulation Panel: No Data to Display Cardiac Panel: No Data to Display Arterial Blood Gas: No Data to Display Venous Blood Gas: No Data to Display Pancreas Panel: No Data to Display Thyroid Panel: No Data to Display Infectious Disease: Coronavirus (COVID-19)(PCR) Negative (Negative) 03/02/22 11:10 Coronavirus 2019 Source Nasal/Nares 03/10/22 11:22 Blood Cultures: No Data to Display Toxicology Panel: Urine Amphetamines Screen Negative (Negative) 03/02/22 10:50 Urine Benzodiazepines Screen Negative (Negative) 03/02/22 10:50 Urine Barbiturates Screen Negative (Negative) 03/02/22 10:50 Urine Cocaine Screen Negative (Negative) 03/02/22 10:50 Urine Methadone Screen Negative (Negative) 03/02/22 10:50 Urine Opiates Screen Positive (Negative) A 03/02/22 10:50 Ur Tricyclic Antidepressants Screen Negative (Negative) 03/02/22 10:50 Ur Tetrahydrocannabinol (THC) Scrn Negative (Negative) 03/02/22 10:50 Panel: No Data to Display Anesthesia Assessment and Plan Anesthesia History Personal History: No History of Anesthesia Complications Family History: No Family History of Anesthesia Complications Exercise Tolerance Exercise Tolerance: Metabolic Equivalents>4 Pertinent Negatives Pertinent Negatives: No Symptoms of GERD, No Major Cardiovascular Symptoms or Complaints and No Major Pulmonary Symptoms or Complaints Cardiac & Pulmonary Exam Cardiac Exam: Normal S1/S2 Heart Sounds Pulmonary Exam: Clear Bilateral Breath Sounds Implantable Cardiac Device Does patient have a Pacemaker or an ICD?: No Airway Exam Known Difficult Airway: No Mallampati Class: 1 Mouth Opening: Normal (> 3cm) Thyromental Distance: Greater than 3 cm Neck Range of Motion: Full ROM Neck Circumference: Normal Teeth Condition: Normal Dentition ASA Classification ASA Score: ASA 2 Emergency Case?: No NPO Status NPO Status: NPO Small Non-Fatty Meal >6 hours Status Status: Confirmed Anesthesia Plan Resuscitation Status: Full Code Anesthesia Technique: Spinal Anesthesia Airway Planned: Natural Airway Pain Management: Intrathecal Analgesia Monitors Used: Standard Monitors
[2022-03-10] MEDS: AZITHROMYCIN 500 MG in Normal Saline 250 ML 250 MG IVPB (12:20)
[2022-03-10] MEDS: Sodium Citrate 30 ML CUP PO (12:20)
[2022-03-10] MEDS: Lactated Ringers 1,000 ML 200 ML IV ×2 (12:30→21:02)
[2022-03-10 12:38] LABS: COVID-19 PCR Negative (Negative)
[2022-03-10] MEDS: ceFAZolin 2 GM/50 ML BAG IVPB (12:57)
[2022-03-10] MEDS: Oxytocin/Normal Saline 30 UNIT/500 ML BAG 334 UNITS IV (13:30)
[2022-03-10] MEDS: Bupivacaine 0.25% Pres-Free 30 ML VIAL (13:35)
--- NOTE | 2022-03-10 14:39 | W.ANESPOSTOP ---
Postoperative Evaluation Date, Time and Location Date Performed: 03/10/22 Time Performed: 14:40 Patient Location: Obstetrics Vital Signs Most Recent Imported Vital Signs: Most Recent Vital Signs Temp Pulse Resp BP Pulse Ox 36.5 C 97 H 16 118/73 97 03/10/22 14:00 03/10/22 14:15 03/10/22 14:15 03/10/22 14:15 03/10/22 14:15 Assessment Mental Status: Awake (Alert & Oriented to Patient Baseline) Airway and Respiratory Function: Patent airway with normal (patient baseline) respiratory exam Cardiovascular Function: Hemodynamically Stable Hydration Status: Adequately Hydrated Nausea & Vomiting: No Nausea or Vomiting Pain: Pt. Denies Any Pain Peripheral Nerve Block: Patient did not receive a nerve block Teaching Patient Teaching: Discussed Safe Use of Pain Medication Given Recent Anesthesia
[2022-03-10] MEDS: Naloxone 0.4 MG/ML VIAL IVP (15:21)
[2022-03-10] MEDS: Acetaminophen 325 MG TAB 650 MG PO ×2 (16:05→20:04)
[2022-03-10] MEDS: Ketorolac 30 MG/ML VIAL IVP ×2 (18:00→23:57)
[2022-03-10] MEDS: Lactated Ringers 1,000 ML 999 ML IV (18:14)
--- NOTE | 2022-03-10 20:14 | W.PM.OBCSECT ---
Date of service: 03/10/22 Time of Service: 20:14 Operative Note Operative Note Delivery Method: Unscheduled STAT: No and Repeat Previous LT Incision: Yes DATE OF PROCEDURE: 03/10/22 PRE-OP DIAGNOSES: IUP at 37W0D EGA, uterine contractions, declines trial of labor POST-OP DIAGNOSES: same PROCEDURE: Unscheduled repeat low-transverse delivery SURGEON: Nisha Turcios Assisting Surgeon: Aliza Maciel Estimated blood loss (mL): 300 Pathology: none sent Complications: None Patient was transported to: floor Patient's condition: stable Indications: 31-year-old G2 now P2 female with a history of previous delivery who was planning a repeat at 39 weeks EGA when she developed painful regular contractions beginning early this morning. No rupture of membranes. heart rate tracing category 1. Decision was made to proceed with delivery Findings: Viable female in vertex presentation, clear amniotic fluid normal fallopian tubes and ovaries. Posterior 2 cm intramural fibroid. Procedure Description: Patient was taken to the operating room she is placed in the sitting position and spinal anesthesia was administered without difficulty. She was then placed in the dorsal supine position with a leftward tilt. SCDs and a Pompa catheter to gravity drainage were in place. A vaginal prep with Betadine was performed and the patient was prepped and draped in the usual sterile fashion.Surgical timeout was performed. After a adequate level of anesthesia was achieved a Pfannenstiel skin incision was made approximately 2 cm superior to the pubic symphysis using a scalpel and the underlying subcutaneous tissue dissected using Bovie electrocautery to the level of the rectus fascia. The rectus fascia was then nicked in the midline and the fascial incision extended laterally using curved Rothman scissors. 2 Jennifer clamps were applied to the inferior rectus fascia and the rectus fascia was dissected off of the underlying rectus muscles using Bovie electrocautery and blunt technique. A similar technique was carried out on the superior rectus fascia. Rectus muscles were then in the midline and the peritoneum entered bluntly. The peritoneal incision was extended laterally using blunt technique. The vesicle-uterine peritoneum over lower uterine segment was incised with curved Rothman scissors and the bladder flap created bluntly. Scalpel was used to incise the lower uterine segment in a transverse fashion. The uterine incision was extended bluntly and the amniotic sac was ruptured with clear amniotic fluid noted. A single gloved hand was placed into the uterine cavity and the head was successfully delivered through the uterine incision followed by the trunk and extremities with the assistance of fundal pressure. The cord was doubly clamped and cut and the handed off to the waiting pediatric team. Cord blood was obtained and the placenta was extracted with a combination of fundal massage and gentle cord traction. The uterus was exteriorized cleared of all clots and debris and the uterine incision reapproximated with a running lock suture of 0 Vicryl followed by a second imbricating suture of 0 Vicryl. Uterine incision was noted be hemostatic. The uterus was returned to the abdomen and the paracolic gutters cleared of all clots and debris. Uterine incision and the along with the bladder flap and the abdominal wall were all inspected and noted to be hemostatic. Peritoneum was reapproximated with a running suture of 2-0 Vicryl. The rectus fascia was reapproximated with a running suture of 0 Vicryl. space within the subcutaneous tissue closed with a running suture of 2-0 Vicryl. The skin incision was reapproximated with a subcuticular closure of 4-0 Monocryl. Skin incision is and sealed with skin glue. The uterus was massaged for any remaining clots and debris's. The patient was transported to recovery area in stable condition. All sponge, lap, and needle counts correct x2. Gestational Age in Weeks/Days: 37 Weeks and 0 Days Gender: Female weight: 6 lb 9.469 oz See Nursing Delivery Note for weight and Scores: Infant shall be named Josse.
[2022-03-11 00:30] VITALS: BP 105/68; PULSE 76; RESP 18; TEMP 36.6; O2SAT 98
[2022-03-11] MEDS: Lactated Ringers 1,000 ML 120 ML IV (01:54)
[2022-03-11] MEDS: Acetaminophen 325 MG TAB 650 MG PO ×3 (03:36→15:45)
[2022-03-11 03:41] VITALS: BP 108/70; PULSE 71; RESP 18; TEMP 36.6; O2SAT 98
[2022-03-11] MEDS: Ketorolac 30 MG/ML VIAL IVP (06:02)
[2022-03-11 07:22] LABS: Abs Immature Grans 0.05 10^3/uL (0.0-0.06); Absolute Basophil Count 0.02 10^3/uL (0.0-0.2); Absolute Eosinophil Count 0.07 10^3/uL (0.0-0.7); Absolute Lymphocyte Count 0.93 10^3/uL (1.2-3.4); Absolute Monocyte Count 0.52 10^3/uL (0.1-0.8); Absolute Neutrophil Count 6.97 10^3/uL (1.2-6.7); Basophils % 0.2; Eosinophils % 0.8; HCT 31.7 % (36.0-46.0); HGB 10.7 g/dL (11.2-15.7); Immature Grans % 0.6; Lymphocytes % 10.9; MCH 30.1 pg (27.0-33.0); MCHC 33.8 % (32.0-36.0); MCV 89 fL (80-95); MPV 10.3 fL (8.0-11.0); Monocytes % 6.1; Neutrophils % 81.4; Platelet Count 163 10^3/uL (130-400); RBC 3.55 10^6/uL (3.93-5.22); RDW-SD 45.5 fL; WBC 8.56 10^3/uL (4.4-10.8)
--- NOTE | 2022-03-11 08:14 | W.PM.OBPNV1 ---
Date of service: 03/11/22 Time of Service: 08:14 Assessment and Plan Assessment and plan (1) Status post repeat low transverse section: Status: Acute Assessment and plan: Postoperative day #1 status post repeat low transverse section. Overall doing well. Routine postoperative and care. Anticipate discharge home in the next 24 to 48 hours. All questions were answered. Subjective Subjective Interval history: Patient seen and examined this morning. Doing well. No pain. Voiding without difficulty. Pumping for her daughter. Ambulating. Tolerating regular diet. Exam Physical Exam Vital signs: Temp Pulse Resp BP Pulse Ox 97.9 F 71 18 108/70 98 03/11/22 03:41 03/11/22 03:41 03/11/22 03:41 03/11/22 03:41 03/11/22 03:41 Vital Signs Reviewed: Yes Constitutional Constitutional: no acute distress HEENT Exam HEENT Exam: Normal Neck Exam Neck Exam: Normal Respiratory Exam Respiratory Exam: Normal Cardiovascular Exam Cardiovascular Exam: Normal Abdominal Exam Comments: Soft nontender, dressing in place Fundal Exam Fundus: Below Umbilicus and Firm Extremities Exam Extremity Exam: Normal; negative Calf Tenderness Psychiatric Exam Psychiatric Exam: Normal Results Hemoglobin/Hematocrit: Hgb 10.7 g/dL (11.2-15.7) L 03/11/22 07:15 Hct 31.7 % (36.0-46.0) L 03/11/22 07:15 Abnormal Lab Findings: Abnormal Labs 03/10/22 03/10/22 03/11/22 11:50 11:50 07:15 RBC 3.55 L Hgb 10.7 L Hct 35.9 L 31.7 L Absolute Neutrophils 6.97 H Absolute Lymphocytes 0.93 L Crossmatch See Detail
[2022-03-11 08:55] VITALS: BP 119/64; PULSE 70; RESP 17; TEMP 36.7; O2SAT 99
[2022-03-11] MEDS: oxyCODONE 5 mg/Acetaminophen 325 mg TAB PO ×3 (11:57→20:00)
[2022-03-11] MEDS: Ibuprofen 600 MG TAB PO ×2 (11:58→17:38)
[2022-03-11 13:00] VITALS: BP 110/62; PULSE 72; RESP 17; TEMP 36.6; O2SAT 99
[2022-03-11 16:47] VITALS: BP 105/68; PULSE 70; RESP 16; TEMP 36.7; O2SAT 98
[2022-03-11 20:30] VITALS: BP 116/73; PULSE 74; RESP 18
[2022-03-12] MEDS: oxyCODONE 5 mg/Acetaminophen 325 mg TAB PO ×2 (03:26→08:31)
[2022-03-12 08:00] VITALS: BP 102/57; PULSE 74; RESP 14; TEMP 36.9
--- NOTE | 2022-03-12 08:29 | W.PM.OBPNV1 ---
Date of service: 03/12/22 Time of Service: 08:29 Assessment and Plan Assessment and plan (1) Status post repeat low transverse section: Status: Acute Assessment and plan: Postoperative day #2 status post repeat low transverse section with a late presentation. Discharge home today. Ambulating, tolerating regular diet well pain medication with stable vital signs. Subjective Subjective Interval history: Patient seen morning postoperative day #2 status post repeat low transverse section. Overall she is doing well. Ambulating, tolerating regular diet with oral pain medication. Patient comments: No complaints, Pain well controlled, Tolerating diet and Flatus present baby status: Doing well and Nursing well feeding status: Exclusively breast feeding Exam Physical Exam Vital signs: Temp Pulse Resp BP Pulse Ox 98.1 F 74 18 116/73 98 03/11/22 16:47 03/11/22 20:30 03/11/22 20:30 03/11/22 20:30 03/11/22 16:47 Vital Signs Reviewed: Yes Constitutional Constitutional: no acute distress HEENT Exam HEENT Exam: Normal Neck Exam Neck Exam: Normal Respiratory Exam Respiratory Exam: Normal Cardiovascular Exam Cardiovascular Exam: Normal Abdominal Exam Abdomen: Tender Comments: No guarding, nondistended Fundal Exam Fundus: Below Umbilicus and Firm Extremities Exam Extremity Exam: Normal; negative Calf Tenderness Skin Exam Skin Exam: Normal Neurological Exam Neurological Exam: Normal Psychiatric Exam Psychiatric Exam: Normal Results Hemoglobin/Hematocrit: Hgb 10.7 g/dL (11.2-15.7) L 03/11/22 07:15 Hct 31.7 % (36.0-46.0) L 03/11/22 07:15 Abnormal Lab Findings: Abnormal Labs 03/10/22 03/10/22 03/11/22 11:50 11:50 07:15 RBC 3.55 L Hgb 10.7 L Hct 35.9 L 31.7 L Absolute Neutrophils 6.97 H Absolute Lymphocytes 0.93 L Crossmatch See Detail
[2022-03-12] MEDS: Ibuprofen 600 MG TAB PO (08:33)
--- NOTE | 2022-03-12 08:37 | DSE_ITS ---
Date of service: 03/12/22 Time of Service: 08:37 DS: Diagnosis Discharge Diagnosis (1) Status post repeat low transverse section: Status: Acute Asessment and Plan: Patient is postoperative day #2 status post repeat low transverse section due to labor at term. Routine section and routine postoperative care. Discharged home. Follow-up in 2 and 6 weeks. Prescription sent to the pharmacy for Motrin, Percocet, Colace. Discharge Plan Disposition Patient Disposition: HOME Condition: Good Discharge Details Reason For Visit: Delivery Admit Date/Time: 03/10/22 10:30 Admit Provider: Nisha Turcios Attending Provider: Nisha Turcios Primary Care Provider: Rochelle Martin Hospital Course Hospital Course: Patient presented to the center just shy of 38 weeks zakia, with a history of prior section. She underwent a repeat low-transverse section that was uncomplicated. She had a routine postoperative and course. She is discharged home postoperative day #2 ambulating, tolerating regular diet with oral pain medication and stable vital signs. Her follow-up will be in the office in 2 and 6 weeks. Prescription sent to the pharmacy today. Home Meds and New Rx's Prescriptions: New ibuprofen 800 mg tablet 800 mg PO Q8H PRNQty: 30 1RF oxycodone-acetaminophen [Percocet] 5-325 mg tablet 1 tab PO Q8H PRN (Reason: pain) Qty: 10 0RF docusate sodium [Colace] 100 mg capsule 100 mg PO BID Qty: 30 0RF No Action prenat.vits,angie,mqp-byqh-parnh Tablet 1 tab PO DAILY Discharge Instructions Stand Alone Forms: BC Discharge Instruc Activity:: Pelvic rest and no heavy Equipment/Supplies:: No Equipment Needed Diet:: As Tolerated Discharge Orders Discharge Orders: Discharge Order (Routine); Ordered 03/12/22 Ordered By: Aliza Maciel OB:JEFERSON Summary Contraception Discussed Contraception Discussed: Yes Contraceptive Plan: Not planning to use, Gender-Baby A: Female weight: 6 lb 9.469 oz Status at Discharge Functional status at discharge: independent ambulation Overall status at discharge: patient is back to baseline Mental Status: mental status grossly normal Speech and Movement: speech and movement normal Mood: congruent mood Affect: normal affect Exam Physical Exam Vital signs: Temp Pulse Resp BP Pulse Ox 98.1 F 74 18 116/73 98 03/11/22 16:47 03/11/22 20:30 03/11/22 20:30 03/11/22 20:30 03/11/22 16:47 Narrative: See physical exam from progress note dated 02/09/2022 [facility] All Active Problems (Updated 03/10/22 @ 12:11 by Nisha Turcios MD) Status post repeat low transverse section (Acute) Declines (vaginal after ) trial (Acute) Uterine contractions (Acute) History of delivery (Chronic) Edema of left lower leg (Acute) Rh negative status during (Acute) Encounter for supervision of other normal , second trimester (Acute) Rh negative state in antepartum period (Acute) (Acute) History of kidney infection (Acute) Left flank pain (Acute) Positive test (Acute) Blackout spell (Acute) Cervical disc herniation (Acute) Migraine headache with aura (Acute) Headache (Acute) Facial paresthesia (Acute) Paralysis of left upper extremity (Acute) Left leg weakness (Acute) Pre-conception counseling (Acute) Hirsutism (Acute) Menorrhagia (Acute) Postcoital bleeding (Acute) Cervical high risk HPV (human papillomavirus) test positive (Acute) Dysfunctional uterine bleeding (Acute) Polycystic disease, ovaries (Acute) Dysuria (Acute) Vaginitis (Acute) Bipolar I disorder (Acute 03/21/17) Currently no evidence of gavin or acute depression. BMI 38.0-38.9,adult (Acute 03/04/17) Medical History Anxiety Bipolar disorder in remission Surgical History section (07/27/17) 07/25/17. PC/S. Unsuccessful IOL at 41w. M. Akhil. aoc/dd. Family History Mother Depression Father , car accident at age 33. Essential hypertension Bipolar disorder Sister Asthma Grandfather Stroke Grandmother Diabetes Grandfather Prostate cancer Cancer of kidney Grandmother Parkinsons disease Social History Smoking/Tobacco Use Status: Never Smoking risk assessment performed?: Yes Alcohol Intake: current Alcohol Intake frequency: holidays/special occasions only Drug use: Never Substance use type: does not use Household members: spouse, children and other Details: son Akhil Number of Children: 1 current occupation: works for [employer] What is your relationship status?: Panel score (0-1 are the most socially isolated patients): 1 Do you feel safe at home: Yes Do you feel safe in your relationship?: Yes Female Reproductive History Menstrual control method: copper IUCD History History 4 Para 2 Hx # Term Pregnancies Multiple births Hx # Pregnancies Ectopic pregnancies AB induced 1 Hx Number of Living Children 2 AB spontaneous 1 Past Pregnancies Del. Date GA/Weeks # Preg Succ Route Wgt Sex Labor Lgth Anesth esia Location [facility] 07/17/17 41 No 8 lb 11 oz Male Jorge Pemberton 03/10/22 37 No Yes 6 lb 9.[address] Turcios Delivery Date: 07/17/17 Last Updated by: Nisha Turcios M.D. IOL attempted. pitocin and ripening balloon unsuccessful. Akhil. Delivery Date: 03/10/22 Last Updated by: Thalia Segura LPN Baby name Josse DS: Data Vitals/I&O Vitals and I&O: Vital Signs Temperature 98.1 F 03/11/22 16:47 Pulse 74 03/11/22 20:30 Pulse Rhythm Regular 03/11/22 20:30 Respiratory Rate 18 03/11/22 20:30 Blood Pressure 116/73 03/11/22 20:30 Blood Pressure Mean 87 03/11/22 20:30 Pulse Oximetry 98 03/11/22 16:47 Oxygen Delivery Method Room Air 03/10/22 11:40 Oxygen Flow Rate 0 03/10/22 11:40 Pain Level 5 03/12/22 08:33 Comment 03/11/22 20:30 Intake & Output 03/11/22 03/11/22 03/12/22 11:59 23:59 11:59 Intake Total 1512 / 1512 Output Total 1850 / 2200 350 / 2200 Balance -338 / -688 -350 / -688 Intake: IV 1512 / 1512 Output: Urine 1850 / 2200 350 / 2200 Other: Urine Color Yellow Yellow Urine Appearance Clear
== END 2022-03-12 10:30 | disposition home or self-care (01) | DRG 787 ==
LOC: OBS 11:33
PROVIDERS: Admitting Provider Obstetrics & Gynecology Gynecology; PCP Nurse Practitioner Family; Visit Provider Obstetrics & Gynecology Gynecology
PROC: 10D00Z1 Extraction of Products of Conception, Low, Open Approach (ICD-10-PCS; CPT 59514; principal; 2022-03-10 12:45)
DX: O34.211 Maternal care for low transverse scar from previous cesarean delivery (principal); Z37.0 Single live birth; O36.0930 Maternal care for other rhesus isoimmunization, third trimester, not applicable or unspecified; O99.354 Diseases of the nervous system complicating childbirth; O99.284 Endocrine, nutritional and metabolic diseases complicating childbirth; E28.2 Polycystic ovarian syndrome; G43.109 Migraine with aura, not intractable, without status migrainosus; O99.344 Other mental disorders complicating childbirth; Z3A.37 37 weeks gestation of pregnancy
CPT/HCPCS: 59514; 84112; 85027; 86850; 86900; 86901; 86920; 87635; 85025; 86870; G0378; J0456; J0690; J1885; J2310; J2405; J3010

== ENCOUNTER 2022-07-16 08:23 | Emergency (ER) | payer MEDICAID, SELFPAY ==
[2022-07-16 08:28] VITALS: BP 158/125; PULSE 110; RESP 18; O2SAT 96
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
[2022-07-16 09:26] LABS: Abs Immature Grans 0.02 10^3/uL (0.0-0.06); Absolute Basophil Count 0.02 10^3/uL (0.0-0.2); Absolute Eosinophil Count 0.06 10^3/uL (0.0-0.7); Absolute Monocyte Count 0.36 10^3/uL (0.1-0.8); Absolute Neutrophil Count 4.61 10^3/uL (1.2-6.7); Basophils % 0.3; Eosinophils % 0.9; HCT 41.6 % (36.0-46.0); Immature Grans % 0.3; Lymphocytes % 20.4; MCH 29.7 pg (27.0-33.0); MCHC 33.7 % (32.0-36.0); MCV 88 fL (80-95); MPV 9.9 fL (8.0-11.0); Monocytes % 5.7; Neutrophils % 72.4; Platelet Count 250 10^3/uL (130-400); RBC 4.72 10^6/uL (3.93-5.22); RDW 12.7 % (11.7-14.6); WBC 6.37 10^3/uL (4.4-10.8)
[2022-07-16 09:36] LABS: Bilirubin Negative (Negative); Blood Negative (Negative); Clarity Clear (Clear); Glucose Negative (Negative); Ketones Negative (Negative); Leukocyte Esterase Negative (Negative); Nitrite Negative (Negative); Specific Gravity 1.015 (1.005-1.025); Urobilinogen 0.2 EU/dL (Up TO 0.2)
[2022-07-16 09:39] VITALS: BP 125/85; PULSE 96; RESP 14; O2SAT 99
[2022-07-16 09:48] LABS: ALT 37 U/L (14-59); AST 20 U/L (15-37); Albumin 3.9 g/dL (3.4-5.0); Alkaline Phosphatase 111 U/L (46-116); Anion Gap 8.6 mmol/L (3-11); BUN 14 mg/dL (7-18); Bilirubin, Total 0.5 mg/dL (0.2-1.0); CO2 24.4 mmol/L (21.0-32.0); CREATININE 0.8 mg/dL (0.55-1.02); Calcium 9.3 mg/dL (8.5-10.1); Chloride 106 mmol/L (98-107); Estimated GFR 100.96 (mL/min/1.73m2); Glucose 101 mg/dL (74-106); Lipase 103 U/L (73-393); Magnesium 1.8 mg/dL (1.8-2.4); Potassium 4.1 mmol/L (3.5-5.1); Sodium 139 mmol/L (136-145); Total Protein 8.1 g/dL (6.4-8.2); Troponin I < 50 ng/L (<or=60)
[2022-07-16 09:48] LABS: Bacteria Few HPF (Negative); Crystals Negative HPF (Negative); Epithelial Cells Moderate HPF (Negative); Mucus Negative (Negative); RBC Negative HPF (0-2); WBC 0-2 HPF (0-5)
[2022-07-16 09:49] LABS: C & S Indicated? No; Casts 0-2 Hyaline LPF (Negative)
[2022-07-16] MEDS: ACETAMINOPHEN 1,000 MG/100 ML BTL 400 MG IVPB (10:29)
[2022-07-16] MEDS: Normal Saline Flush 10 ML SYR IVP (10:32)
[2022-07-16] MEDS: Omnipaque 350 MG/ML 100 ML BTL IJ (10:32)
[2022-07-16 10:52] VITALS: BP 121/79; PULSE 84; RESP 12; O2SAT 98
== END 2022-07-16 10:53 | disposition home or self-care (01) ==
PROVIDERS: Emergency Provider Registered Nurse Emergency; PCP Nurse Practitioner Family
DX: G89.11 Acute pain due to trauma (principal); R07.82 Intercostal pain; M54.50 Low back pain, unspecified; R10.2 Pelvic and perineal pain; R10.12 Left upper quadrant pain; V89.2XXA Person injured in unspecified motor-vehicle accident, traffic, initial encounter; Y99.8 Other external cause status
CPT/HCPCS: 36415; 74177; 80053; 81025; 83690; 96374; 99285; 70450; 71260; 81003; 81015; 83735; 84484; 85025; 99284; J0131; J3490

== ENCOUNTER 2023-05-02 23:50 | Emergency (ER) | payer OTHER, MEDICAID, SELFPAY ==
[2023-05-02 23:52] VITALS: BP 145/72; PULSE 87; RESP 18; TEMP 36.8; O2SAT 99
--- NOTE | 2023-05-03 00:02 | W.ED.GENAD ---
Discharge Plan Disposition Patient Disposition: Home Condition: Good Discharge Details Clinical Impression: URI (upper respiratory infection), Acute sore throat Primary Care Provider: Rochelle Martin ED Provider: Yasemin Mccullough Home Meds and New Rx's Prescriptions: No Action No Known Home Meds Discharge Instructions Instructions: Pharyngitis (ED) Additional Instructions: Continue Motrin or Tylenol as needed for fever or pain. Stay hydrated, use a humidifier at nighttime, warm salt water gargles to help with throat pain. Medical Decision Making Evaluation of sore throat. Initial differential includes viral illness, posterior nasal drip, doubt strep pharyngitis, doubt RPA or [employer] OFFICER exam is reassuring. Patient is afebrile here without any medications. Sore throat likely from her posterior nasal drip, plan for strep testing in the emergency department. 1210: Strep testing negative. Supportive care instructions provided to the patient. Lab Data Lab results reviewed: Yes I reviewed the patient's lab results. HPI General Date/Time Provider Initiated Documentation: 05/03/23 00:02. Limitations to Documentation: no limitations. Information obtained by: patient. HPI Narrative: 32-year-old female without significant past medical history presents for evaluation of sore throat. Reports onset of symptoms about 24 hours ago. She states associated with posterior nasal drip. She reports that she measured a fever at home at 101. Last dose of medication at 4:30 PM. Has not been having a cough. Denies any nasal congestion. Denies any sick contacts. Reports that throat is painful with swallowing, no difficulty swallowing or voice changes. No difficulty breathing Related Data Home Medications Medication Instructions Recorded Confirmed Unknown [No Known Home Meds] 05/02/23 05/02/23 Allergies Allergy/AdvReac Type Severity Reaction Status Date / Time cefaclor [From Ceclor] Allergy Mild unsure Unverified 05/02/23 23:56 General Stated Complaint: Sorethroat MAHENDRA: 4 PFSH All Active Problems (Updated 05/03/23 @ 00:09 by Yasemin Mccullough MD) Acute sore throat (Acute) URI (upper respiratory infection) (Acute) Status post repeat low transverse section (Acute) Edema of left lower leg (Acute) Rh negative status during (Acute) Encounter for supervision of other normal , second trimester (Acute) Rh negative state in antepartum period (Acute) (Acute) History of kidney infection (Acute) Left flank pain (Acute) Positive test (Acute) Blackout spell (Acute) Cervical disc herniation (Acute) Migraine headache with aura (Acute) Headache (Acute) Facial paresthesia (Acute) Paralysis of left upper extremity (Acute) Left leg weakness (Acute) Pre-conception counseling (Acute) Hirsutism (Acute) Menorrhagia (Acute) Postcoital bleeding (Acute) Cervical high risk HPV (human papillomavirus) test positive (Acute) Dysfunctional uterine bleeding (Acute) Polycystic disease, ovaries (Acute) Dysuria (Acute) Vaginitis (Acute) Bipolar I disorder (Acute 03/21/17) Currently no evidence of gavin or acute depression. BMI 38.0-38.9,adult (Acute 03/04/17) Medical History Anxiety Bipolar disorder in remission Surgical History History of delivery section (07/27/17) 07/25/17. PC/S. Unsuccessful IOL at 41w. MKendal Landaverde. aoc/dd. Family History Mother Depression Father , car accident at age 33. Essential hypertension Bipolar disorder Sister Asthma Grandfather Stroke Grandmother Diabetes Grandfather Prostate cancer Cancer of kidney Grandmother Parkinsons disease Social History Smoking/Tobacco Use Status: Never Smoking risk assessment performed?: Yes Alcohol Intake: current Alcohol Intake frequency: holidays/special occasions only Drug use: Never Substance use type: does not use Household members: spouse, children and other Details: son Akhil Number of Children: 1 current occupation: works for [employer] What is your relationship status?: Panel score (0-1 are the most socially isolated patients): 1 Do you feel safe at home: Yes Do you feel safe in your relationship?: Yes Female Reproductive History Menstrual control method: copper IUCD History History 2 Para 2 Hx # Term Pregnancies Multiple births Hx # Pregnancies Ectopic pregnancies AB induced 1 Hx Number of Living Children 2 AB spontaneous 1 Past Pregnancies Del. Date GA/Weeks # Preg Succ Route Wgt Sex Labor Lgth Anesthesia Location Prov Complic 07/17/17 41 No 3940.584 g Male Tam 03/10/22 37 No Yes 2990.[address] Turcios Delivery Date: 07/17/17 Last Updated by: Nisha Turcios M.D. IOL attempted. pitocin and ripening balloon unsuccessful. Akhil. Delivery Date: 03/10/22 Last Updated by: Thalia Segura LPN Baby name Giles Exam Narrative Exam Narrative: Review of Systems: All systems reviewed & are unremarkable except as noted in HPI and below Well-developed, no acute distress NACT PERRL, normal conjunctiva + Mild cervical lymphadenopathy, oropharynx erythematous without significant tonsillar enlargement or exudates noted RRR Unlabored respiratory effort, clear breath sounds bilaterally Nondistended abdomen Extremities w/o deformity, no cyanosis, no edema No rashes or lesions. no focal neurologic deficits Appropriate mood and affect Course Vital Signs Vital signs: Vital Signs Temperature 36.8 C 05/02/23 23:52 Pulse 87 05/02/23 23:52 Respiratory Rate 18 05/02/23 23:52 Blood Pressure 145/72 H 05/02/23 23:52 Pulse Oximetry 99 05/02/23 23:52 Temperature 36.8 C 05/02/23 23:52 Pulse 87 05/02/23 23:52 Respiratory Rate 18 05/02/23 23:52 Respiratory Effort Normal 05/02/23 23:59 Blood Pressure 145/72 H 05/02/23 23:52 Pulse Oximetry 99 05/02/23 23:52 Pain Level 4 05/02/23 23:52 Lab/Test Results Lab/Test Results: POC Strep Test-LINDA(Rapid) Start: 05/02/23 23:59 Freq: Status: Active Protocol: Document 05/03/23 00:01 SARAH (Rec: 05/03/23 00:02 SARAH [id number]) Strep test-LINDA(Rapid)-POC POC-Strep test-LINDA (Rapid) Negative POC-Strep test-LINDA (Rapid) Negative
== END 2023-05-03 00:15 | disposition home or self-care (01) ==
PROVIDERS: Emergency Provider Emergency Medicine; PCP Nurse Practitioner Family
DX: J02.9 Acute pharyngitis, unspecified (principal); J06.9 Acute upper respiratory infection, unspecified
CPT/HCPCS: 87880; 99283; 99282

== ENCOUNTER 2023-11-08 14:22 | Outpatient (REF) | payer BC, SELFPAY ==
[2023-11-08 15:37] LABS: Abs Immature Grans 0.03 10^3/uL (0.0-0.06); Absolute Basophil Count 0.04 10^3/uL (0.0-0.2); Absolute Eosinophil Count 0.05 10^3/uL (0.0-0.7); Absolute Lymphocyte Count 1.59 10^3/uL (1.2-3.4); Absolute Monocyte Count 0.33 10^3/uL (0.1-0.8); Absolute Neutrophil Count 3.48 10^3/uL (1.2-6.7); Basophils % 0.7 %; Eosinophils % 0.9 %; HCT 40.2 % (36.0-46.0); HGB 13.1 g/dL (11.2-15.7); Immature Grans % 0.5 %; Lymphocytes % 28.8 %; MCH 29.4 pg (27.0-33.0); MCHC 32.6 % (32.0-36.0); MCV 90 fL (80-95); MPV 10.8 fL (8.0-11.0); Neutrophils % 63.1 %; Platelet Count 282 10^3/uL (130-400); RBC 4.46 10^6/uL (3.93-5.22); RDW 12.6 % (11.7-14.6); RDW-SD 41.2 fL; WBC 5.52 10^3/uL (4.4-10.8)
[2023-11-08 16:36] LABS: FREE T4 0.99 ng/dL (0.76-1.46); TSH 1.45 uIU/Ml (0.36-3.74)
== END 2023-11-08 14:23 | disposition home or self-care (01) ==
LOC: NCHCN 14:22
PROVIDERS: PCP Nurse Practitioner Family; Visit Provider Student in an Organized Health Care Education/Training Program
DX: F41.9 Anxiety disorder, unspecified (principal)
CPT/HCPCS: 84439; 84443; 85025

== ENCOUNTER 2024-07-30 13:49 | Outpatient (REF) | payer BC, SELFPAY ==
--- NOTE | 2024-07-30 13:10 | PAPFT_PTH ---
PATIENT: Jahaira Faust LOC: [facility] U#:[id number] AGE/SX: 34/F ROOM: RE07/30/[address]: Vani Resendiz NP : 1990 BED: DIS: 07/30/2024 SPEC #: [id number] RECD: 07/30/24 17:18 STATUS: FARHAN [place] #: [id number] UMU: 07/30/24 13:[address]: Vani Resendiz NP DEPT: [facility] Cytology RECD BY: Celeste Hall ENTERED: 07/30/24 17:19 SP TYPE: PAPFT OTHR DR: Rochelle Martin Tissues: 1 - CX/ENDOCX FOR PAP SMEARS Procedures: PAP THIN PREP/UVM Screening HPV DNA PROBE Comments: [id number] (HPV 16 & 18/45) (CHLAMYDIA/GC)
[2024-07-31 12:42] LABS: Chlamydia Result Negative (Negative); GC Result Negative (Negative)
== END 2024-07-30 13:50 | disposition home or self-care (01) ==
LOC: LBN 13:49
PROVIDERS: PCP Nurse Practitioner Family; Visit Provider Nurse Practitioner Women's Health
DX: Z11.51 Encounter for screening for human papillomavirus (HPV) (principal); Z01.419 Encounter for gynecological examination (general) (routine) without abnormal findings; Z11.3 Encounter for screening for infections with a predominantly sexual mode of transmission
CPT/HCPCS: 87491; 87591; 88142; 87624

== ENCOUNTER 2024-09-10 09:12 | Outpatient (REF) | payer BC, SELFPAY ==
--- NOTE | 2024-09-10 08:40 | ENDO_PTH ---
PATIENT: Jahaira Faust LOC: [facility] U#:[id number] AGE/SX: 34/F ROOM: RE09/10/[address]: Aliza Maciel DO : 1990 BED: DIS: 09/10/2024 SPEC #: [id number] RECD: 09/11/24 12:36 STATUS: SOUAleksandra REQ #: [id number] UMU: 09/10/24 08:[address]: Aliza Maciel DEPT: Surgical Specimen RECD BY: Celeste Hall ENTERED: 09/11/24 12:36 SP TYPE: Endo OTHR DR: Rochelle Martin Tissues: 1 - ENDOCERVICAL BX/CURRETTE Procedures: GROSS AND MICRO LEVEL 4 Comments: [id number]
== END 2024-09-10 09:13 | disposition home or self-care (01) ==
LOC: LBN 09:12
PROVIDERS: PCP Nurse Practitioner Family; Visit Provider Obstetrics & Gynecology
DX: N88.8 Other specified noninflammatory disorders of cervix uteri (principal); Z32.00 Encounter for pregnancy test, result unknown; R87.810 Cervical high risk human papillomavirus (HPV) DNA test positive; T83.32XA Displacement of intrauterine contraceptive device, initial encounter
CPT/HCPCS: 88305

== ENCOUNTER 2024-11-08 01:41 | Outpatient (CLI) | payer BC, SELFPAY ==
[2024-11-08 14:33] LABS: Panorama Kit Sent via Fed Ex
[2024-11-08 14:41] LABS: Abs Immature Grans 0.04 10^3/uL (0.0-0.06); Absolute Basophil Count 0.03 10^3/uL (0.0-0.2); Absolute Eosinophil Count 0.06 10^3/uL (0.0-0.7); Absolute Lymphocyte Count 1.69 10^3/uL (1.2-3.4); Absolute Monocyte Count 0.35 10^3/uL (0.1-0.8); Absolute Neutrophil Count 5.65 10^3/uL (1.2-6.7); Basophils % 0.4 %; Eosinophils % 0.8 %; HCT 36.7 % (36.0-46.0); HGB 12.1 g/dL (11.2-15.7); Immature Grans % 0.5 %; Lymphocytes % 21.6 %; MCH 30.2 pg (27.0-33.0); MCV 92 fL (80-95); MPV 9.9 fL (8.0-11.0); Monocytes % 4.5 %; Neutrophils % 72.2 %; Platelet Count 263 10^3/uL (130-400); RBC 4.01 10^6/uL (3.93-5.22); RDW 13.2 % (11.7-14.6); RDW-SD 44.2 fL; WBC 7.82 10^3/uL (4.4-10.8)
[2024-11-08 15:25] LABS: Hemoglobin A1C 4.7 % (<5.7)
[2024-11-09 10:49] LABS: Hepatitis B Surface Ag Negative (Negative)
[2024-11-09 11:08] LABS: Hepatitis C Ab w Rflx HCV PCR Negative (Negative)
[2024-11-09 11:13] LABS: Varicella IgG Antibody Positive (See Note)
[2024-11-09 11:16] LABS: Rubella IgG Ab (UVM) Positive (See Note)
[2024-11-09 11:25] LABS: HIV-1/2 Ag & Ab Screen Negative (Negative)
[2024-11-11 15:27] LABS: Syphilis IgG w/Reflex Nonreactive (Nonreactive)
[2024-11-16 16:33] LABS: Specimen WB Whole Blood
== END 2024-11-08 01:42 | disposition home or self-care (01) ==
PROVIDERS: PCP Nurse Practitioner Family; Visit Provider Advanced Practice Midwife
DX: Z34.91 Encounter for supervision of normal pregnancy, unspecified, first trimester (principal)
CPT/HCPCS: 36415; 81329; 86787; 86803; 86850; 86900; 86901; 87340; 87389; 83036; 84443; 85025; 86762; 86780

== ENCOUNTER 2024-11-08 14:20 | Outpatient (REF) | payer BC, SELFPAY ==
[2024-11-09 11:11] LABS: Chlamydia Result Negative (Negative); GC Result Negative (Negative)
== END 2024-11-08 14:21 | disposition home or self-care (01) ==
LOC: LBN 14:20
PROVIDERS: PCP Nurse Practitioner Family; Visit Provider Advanced Practice Midwife
DX: Z34.91 Encounter for supervision of normal pregnancy, unspecified, first trimester (principal)
CPT/HCPCS: 87491; 87591; 87086

== ENCOUNTER 2025-01-02 20:52 | Emergency (ER) | payer BC, SELFPAY ==
[2025-01-02 20:54] VITALS: BP 125/64; PULSE 92; RESP 18; TEMP 36.8; O2SAT 98
--- NOTE | 2025-01-02 21:12 | ED.GENADUL_ITS ---
Discharge Plan Disposition Patient Disposition: Home Discharge Details Clinical Impression: Labial lesion Primary Care Provider: Rochelle Martin ED Provider: Patricia Pate Home Meds and New Rx's Prescriptions: No Action Classic 28 mg iron- 800 mcg tablet PO [id number]-[id number] [Fioricet] 50-300-40 mg capsule 1 cap PO Q8H PRN (Reason: pain) Qty: 7 0RF Discharge Instructions Additional Instructions: Please call women's wellness tomorrow to schedule a recheck if you are still having some discomfort You may use warm compresses, for 15-20 minutes at a time. Please wear well fitting underwear and avoid rubbing/irritation to the area. Return to emergency care if you develop new abdominal pains, unusual vaginal bleeding/discharge, or if you are very worried and need to be rechecked again immediately Referrals: [facility] [Provider Group] HPI General Date/Time Provider Initiated Documentation: 01/02/25 20:53 . HPI Narrative: Jahaira is a 34-year-old female, 19 weeks , presenting for a genital lesion on her right labia. Reports a large, painful cyst-like lesion between clitoris and left labia, noticed today, 01/02/2025. Painful with movement or wiping, no discomfort while lying still. No systemic symptoms: fevers, chills, nausea, vomiting, abdominal pain, unusual vaginal discharge or bleeding, or cramping. progressing normally, ultrasound on 01/04/2025. Denies history of herpetic lesions or similar. No known trauma. Related Data Home Medications ?Medication ?Instructions ?Recorded ?Confirmed vits no.126-ferrous fum tab PO 10/22/24 28 mg iron-folic acid 800 mcg tablet (Classic ) axmzsqpnzd-icwbkxebnmbin-veimlwul 1 cap PO Q8H PRN silvia n #7 caps 12/10/24 01/02/25 50 mg-300 mg-40 mg capsule (Fioricet) Held on 01/02/25. Instructions: Pt Stopped/Never Started Previous Rx's ?Medication ?Instructions ?Recorded [id number]-jbtfcmbsiycls-xdoukncj 1 cap PO Q8H PRN silvia n #7 caps 12/10/24 50 mg-300 mg-40 mg capsule (Fioricet) Held on 01/02/25. Instructions: Pt Stopped/Never Started Allergies Allergy/AdvReac Type Severity Reaction Status Date / Time [facility] ([facility] Allergy Mild unsure Verified 01/02/25 20:58 General Stated Complaint: RashLesion MAHENDRA: 4 Exam Narrative Exam Narrative: General Appearance: Normal. Vital signs: Within normal limits. Abdomen: Soft, nondistended, nontender to palpation. Genitourinary: Female - Small, flat lesion approx 0.75 x 0.5 cm noted to left labia minora. Not consistent with herpetic lesion. No fluctuance, erythema, crusting, or drainage. No other vulvar abnormalities noted. Skin: Warm and dry, no rash. Psychiatric: Normal. Course Vital Signs Vital signs: Vital Signs Temperature 36.8 C 01/02/25 20:54 Pulse 92 H 01/02/25 20:54 Respiratory Rate 18 01/02/25 20:54 Blood Pressure 125/64 01/02/25 20:54 Pulse Oximetry 98 01/02/25 20:54 Temperature 36.8 C 01/02/25 20:54 Pulse 92 H 01/02/25 20:54 Respiratory Rate 18 01/02/25 20:54 Blood Pressure 125/64 01/02/25 20:54 Pulse Oximetry 98 01/02/25 20:54 Oxygen Delivery Method Room Air 01/02/25 20:54 Oxygen Flow Rate 0 01/02/25 20:54 Pain Level 7 01/02/25 20:54 Medical Decision Making Initial Assessment: 34-year-old female, 18 weeks , presenting with a genital lesion on the left side. No systemic symptoms such as fever, chills, nausea, vomiting, belly pain, unusual vaginal discharge, or bleeding. No cramping. progressing normally. Differential Diagnosis: - Folliculitis: Considered due to appearance and lack of systemic symptoms. Plan includes warm compresses. - Pimple: Considered due to appearance and lack of systemic symptoms. Plan includes warm compresses. - Herpetic lesion: Excluded based on appearance. - Bartholin cyst: Mentioned by patient but not confirmed. - Molluscum: Excluded based on appearance. -no red flags concerning for acute infectious or other serious etiology requiring diagnostic imaging or labs at this time ED Course: - Physical examination of the lesion. - Warm compresses recommended. - Patient reassured about the benign nature of the lesion. - heart tones measured by nurse Final Assessment: The patient was evaluated for a genital lesion, which appears to be a pimple or early folliculitis. Warm compresses were recommended, and the patient was reassured about the benign nature of the lesion. Clinical Impression: - Folliculitis - Pimple Disposition: - Discharge home - Follow-Up: Advised to contact women's wellness team if the lesion becomes bothersome before the scheduled appointment on Tuesday. MDM Components Evaluation: - Number of Differential Diagnoses or Management Options: Folliculitis, Pimple, Herpetic lesion, Bartholin cyst, Molluscum - Amount and Complexity of Data Reviewed: Physical examination - Risk of Complication and Morbidity or Mortality: Low risk based on the benign nature of the lesion and lack of systemic symptoms. Patient consented to the use of FRANTZ PFSH All Active Problems (Updated 01/02/25 @ 21:17 by Patricia Ochoa) Labial lesion (Acute) Rh negative state in antepartum period (Acute) (Acute) Medical History (Updated 01/02/25 @ 21:17 by Patricia Ochoa) Headache History of abnormal cervical Pap smear Edema of left lower leg History of kidney infection Left flank pain Blackout spell Cervical disc herniation Migraine headache with aura Paralysis of left upper extremity Left leg weakness Hirsutism IUD surveillance (08/08/24) Paragard Bipolar I disorder (03/21/17) Currently no evidence of gavin or acute depression. Cervical high risk HPV (human papillomavirus) test positive 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 Colposcopy 09/10/2024. ECC with no cervical biopsy. PCOS (polycystic ovarian syndrome) Anxiety Surgical History History of delivery section (07/27/17) 07/25/17. PC/S. Unsuccessful IOL at 41w. MKendal Landaverde. aoc/dd. Family History Mother Depression Father , car accident at age 33. Essential hypertension Bipolar disorder Sister Asthma Grandfather Stroke Grandmother Diabetes Grandfather Prostate cancer Cancer of kidney Grandmother Parkinsons disease Social History (Reviewed 10/24/24 @ 12:55 by KERRIE Pedro Smoking/Tobacco Use Status: Never Second Hand Exposure: No Smoking risk assessment performed?: Yes Alcohol Intake: current Alcohol Intake frequency: holidays/special occasions only Drug use: Never Substance use type: does not use Household members: spouse, children and other Details: son Akhil Number of Children: 1 current occupation: works for [employer] Sexually active: Yes Do you think of yourself as: straight/heterosexual Current gender identity: female What is your relationship status?: Panel score (0-1 are the most socially isolated patients): 1 What type of physical activity do you participate in: regular exercise Do you feel safe at home: Yes Do you feel safe in your relationship?: Yes Female Reproductive History Menstrual control method: none History History 4 Para 2 Hx # Term Pregnancies Multiple births Hx # Pregnancies Ectopic pregnancies AB induced 1 Hx Number of Living Children 2 AB spontaneous 1 Past Pregnancies Del. Date GA/Weeks # Preg Succ Route Wgt Sex Labor Lgth [facility]esth [facility] 41 No 3940.584 g Male [facility] 03/10/22 37 No Yes 2990.875 g Female D [facility] Delivery Date: 07/17/17 Last Updated by: Nisha Turcios M.D. IOL attempted. pitocin and ripening balloon unsuccessful. Akhil. Delivery Date: 03/10/22 Last Updated by: Thalia Segura LPN Baby name Josse
== END 2025-01-02 21:19 | disposition home or self-care (01) ==
PROVIDERS: Emergency Provider Nurse Practitioner Family; PCP Nurse Practitioner Family
DX: N90.89 Other specified noninflammatory disorders of vulva and perineum (principal); Z3A.18 18 weeks gestation of pregnancy
CPT/HCPCS: 99283; 99282

== ENCOUNTER 2025-01-23 20:59 | Outpatient (CLI) | payer BC, SELFPAY ==
[2025-01-23 21:05] VITALS: BP 131/75; PULSE 104; RESP 16; TEMP 36.4; O2SAT 100
[2025-01-23] MEDS: Lactated Ringers 500 ML IV (21:10)
--- NOTE | 2025-01-23 22:30 | PGE_ITS ---
Date of Service Date of service: 01/23/25 Time of Service: 22:31 Assessment and Plan Assessment and plan (1) Nausea and vomiting: Status: Acute Assessment and plan: Suspect viral gastroenteritis. Hide. Rest. Follow-up as needed. (2) : Status: Acute Subjective Subjective Interval history since last seen: Patient had phone this evening with complaints of feeling off and somewhat poorly for approximately 2 hours. She then had some crampiness in her abdomen, and an episode of projectile vomiting. For this reason, she presented to the center for evaluation. She received IV hydration. Her cervical exam is closed and thick. After being hydrated, she felt significantly better and was discharged home. She will follow-up at her usual scheduled appointment. Exam Const General: cooperative, healthy appearing, comfortable, no acute distress, well developed and well groomed HENMT Head: normal to inspection Eyes General: appearance normal, both eyes and all related structures Neck Neck: normal visual inspection, supple, no anterior neck swelling and nontender Resp Effort & Inspection: normal respiratory effort, no audible wheezes and no cough Cardio Rate: regular rate Rhythm: regular rhythm Skin General skin exam: no rashes or lesions noted Extrem General: normal to inspection, no clubbing, cyanosis or edema and no calf tenderness bilaterally Psych Appearance: grossly normal Mental Status: mental status grossly normal Speech and Movement: speech and movement normal Mood: congruent mood Insight: insight good Judgment: judgment good Objective Last Vital Signs Temp 97.5 F L 01/23/25 21:05 Pulse 104 H 01/23/25 21:05 Resp 16 01/23/25 21:05 BP 131/75 01/23/25 21:05 Pulse Ox 100 01/23/25 21:05 Time Spent with Patient Time Spent with Patient: 25-34 minutes Time was spent: preparing to see the patient(eg.review tests), obtaining and/or reviewing separately otained hiistory, ordering medications,tests, procedures, referring, communicating with other health family member caretaker and counseling the patient
== END 2025-01-23 22:00 ==
LOC: BCD 01-24 14:04
PROVIDERS: PCP Nurse Practitioner Family; Visit Provider Obstetrics & Gynecology
DX: O99.612 Diseases of the digestive system complicating pregnancy, second trimester (principal); R11.2 Nausea with vomiting, unspecified; Z3A.21 21 weeks gestation of pregnancy
CPT/HCPCS: 96360; G0378

== ENCOUNTER 2025-02-21 04:12 | Outpatient (CLI) | payer BC, SELFPAY ==
[2025-02-21 12:02] LABS: Abs Immature Grans 0.05 10^3/uL (0.0-0.06); HCT 36.5 % (36.0-46.0); HGB 12.0 g/dL (11.2-15.7); Immature Grans % 0.6 %; MCH 30.7 pg (27.0-33.0); MCHC 32.9 % (32.0-36.0); MCV 93 fL (80-95); MPV 10.2 fL (8.0-11.0); Platelet Count 222 10^3/uL (130-400); RBC 3.91 10^6/uL (3.93-5.22); RDW 13.3 % (11.7-14.6); RDW-SD 45.1 fL; WBC 7.77 10^3/uL (4.4-10.8)
[2025-02-21 12:25] LABS: Glucose,1 Hr (Glucola) 70 mg/dL (80-140)
== END 2025-02-21 04:13 | disposition home or self-care (01) ==
LOC: LBO 04:12
PROVIDERS: PCP Nurse Practitioner Family; Visit Provider Obstetrics & Gynecology
DX: Z34.92 Encounter for supervision of normal pregnancy, unspecified, second trimester (principal); O26.892 Other specified pregnancy related conditions, second trimester; Z67.91 Unspecified blood type, Rh negative
CPT/HCPCS: 36415; 82950; 86850; 86900; 86901; 85025

== ENCOUNTER 2025-03-07 04:03 | Outpatient (CLI) | payer BC, MEDICAID, SELFPAY | END 2025-03-07 04:04 | disposition home or self-care (01) | LOC: LBO 04:09 | PROVIDERS: PCP Nurse Practitioner Family; Visit Provider Obstetrics & Gynecology | DX: Z34.92 Encounter for supervision of normal pregnancy, unspecified, second trimester (principal); O26.891 Other specified pregnancy related conditions, first trimester; Z67.91 Unspecified blood type, Rh negative | CPT/HCPCS: 36415; 86850; 86900; 86901; 90384 ==

== ENCOUNTER 2025-03-11 01:19 | Outpatient (CLI) | payer BC, MEDICAID, SELFPAY ==
--- NOTE | 2025-03-11 04:18 | W.PM.OBHPL1 ---
Date of service: 03/11/25 Time of Service: 04:18 Assessment and Plan Assessment and plan (1) : Status: Acute (2) Rh negative state in antepartum period: Status: Acute Assessment and plan: Received RhoGAM (3) section: Assessment and plan: Prior x 2. Anticipated repeat delivery with this . Declines trial of labor (4) demise, greater than 22 weeks, antepartum, single gestation: Status: Acute Assessment and plan: New diagnosis of unexplained intrauterine demise at 28 weeks. These findings were discussed with the patient at length. Her was present for conversations. She has support from family members. She is appropriately and emotionally distraught. We discussed a number of things including but not limited to mode of delivery, etiology of third trimester demise, medical issues, ongoing support and care, need for laboratory study evaluation, postdelivery implications. After lengthy conversation, patient declines trial of labor and wishes to proceed with . She does understand the risk of infection, bleeding, injury to surrounding organs, risk of anesthesia. My recommendation would be for spinal analgesia to decrease maternal mortality and morbidity. Will obtain laboratory studies at baseline which include basic laboratory studies, preeclampsia studies, TORCH titers this would include CBC, CMP, urine protein creatinine ratio, TSH, hemoglobin A1c, HSV, CMV, parvo. Patient was offered supportive care, interaction with local home which would be [facility] in [facility]. She is familiar with the proprietary routes of this organization. We had a brief conversation regarding her ability to hold her baby after delivery, have photographs, footprints, desire for [facility] service and services. Patient is having the appropriate emotional response. She was offered to stay in the hospital until completion of her versus having time at home to process. She and her have a 7-year-old and a 3-year-old at home and would like to go home in order to have conversations with them. Her mother will be returning from out of state to be present. In light of these factors, my recommendation would be that we schedule her procedure in the relatively near future. We will arrange surgical time and delivery. OB-HPI Labor/Delivery History of Present Illness Reason for Visit: no movement Chief Complaint: Decreased Movement , Associated Signs and Symptoms of Decreased Movement: no movement. BAR Calculator Estimated Delivery Date Method Current WG Current Estimate 05/29/25 Ultrasound #2 28w 5d Other Estimates 04/17/25 LMP (Uncertain) 34w 5d 06/03/25 Ultrasound #1 28w 0d Comments: Patient is a 34-year-old 3 para 2 with 2 previous births. She called this evening at 28 weeks and 5 days with no perception of movement for a minimum of 24 hours. She states that her day yesterday was particularly busy. She took her usual measures to evaluate movement when she felt a decrease which was to rest, drink fluids, with no result. She called in the early hours this morning to report these symptoms. She was sent to the center for evaluation. On initial examination, we could not auscultate heart tones. Bedside POCUS examination confirmed fetus in the transverse lie, minimal fluid. No cardiac activity was present. No Doppler waveforms. This is consistent with a demise. These findings were discussed with the patient who was appreciably and appropriately distraught. She states that recently, she has been otherwise feeling well. She denies fevers or chills. She has had no cramping or bleeding. She has no loss of fluid. She has no recent sick contacts. She did receive RhoGAM this week for her Rh- status. She had a normal 1 hour glucose tolerance test at that time of 70. She was scheduled for a repeat with bilateral salpingectomy. We discussed options for delivery and timing. History of Present Expected Delivery Route/Plan MD care- repeat (#3) FOB - Raul Quiroga (third child together) Prefers no discussion of vaccines during her or after Specific Issues/Plan 1. Prior CS x2, prefers repeat & salpingectomy 2. Desires permanent sterilization via salpingectomy with CS 3. History of pyelonephritis 4. History of migraine with aura 5. History of Bipolar disorder-therapy currently and keto diet have helped. TSH 1.30 6. History of PCOS - Hgb A1C=4.7 - She lost significant weight on medications prior to and didn't stop until she found out she was . - 30# weight gain at 24wks - Pt reports eating a healthy diet and staying active. 7. ASCUS pap with + HPV (non-6 or 18), Colposcopy with biopsies 08/2024 at [facility] 8. RH neg, Rcv'd rhogam at 28 wks 9. 5-Ps neg 10. Genetic screening: cfDNA normal. SMA carrier neg. 11. demise at 28 weeks Review of Systems All systems reviewed & are unremarkable except as noted in HPI and below Constitutional Constitutional: Reports as per HPI, Reports system reviewed and no additional complaints, except as documented, Denies anorexia, Denies body ache(s), Denies chills, Denies fatigue, Denies fever(s), Denies headache(s) and Denies malaise Eyes Eyes: Reports system reviewed and no additional complaints, except as documented ENT Ears, Nose, Mouth, and Throat: Reports system reviewed and no additional complaints, except as documented and Denies headache(s) Cardiovascular Cardiovascular: Reports system reviewed and no additional complaints, except as documented, Denies chest pain, Denies rapid heart rate, Denies lightheadedness and Denies dyspnea Respiratory Respiratory: Reports as per HPI, Denies chest congestion, Denies cough and Denies dyspnea Gastrointestinal Gastrointestinal: Reports as per HPI Genitourinary Genitourinary: Reports system reviewed and no additional complaints, except as documented and Reports as per HPI Neurologic Neurologic: Reports system reviewed and no additional complaints, except as documented and Denies headache(s) Psychiatric Psychiatric: Reports system reviewed and no additional complaints, except as documented Endocrine Endocrine: Denies fatigue PFSH All Active Problems (Updated 03/11/25 @ 04:56 by Aliza Maciel DO) demise, greater than 22 weeks, antepartum, single gestation (Acute) Nausea and vomiting (Acute) Rh negative state in antepartum period (Acute) Received RhoGAM (Acute) Medical History (Updated 03/11/25 @ 04:56 by Aliza Maciel DO) Headache History of abnormal cervical Pap smear Edema of left lower leg History of kidney infection Left flank pain Blackout spell Cervical disc herniation Migraine headache with aura Paralysis of left upper extremity Left leg weakness Hirsutism IUD surveillance (08/08/24) Paragard Bipolar I disorder (03/21/17) Currently no evidence of gavin or acute depression. Cervical high risk HPV (human papillomavirus) test positive 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 Colposcopy 09/10/2024. ECC with no cervical biopsy. PCOS (polycystic ovarian syndrome) Anxiety Surgical History History of delivery section (07/27/17) 07/25/17. PC/S. Unsuccessful IOL at 41w. MKendal Landaverde. aoc/dd. Family History Mother Depression Father , car accident at age 33. Essential hypertension Bipolar disorder Sister Asthma Grandfather Stroke Grandmother Diabetes Grandfather Prostate cancer Cancer of kidney Grandmother Parkinsons disease Social History Smoking/Tobacco Use Status: Never Second Hand Exposure: No Smoking risk assessment performed?: Yes Alcohol Intake: current Alcohol Intake frequency: holidays/special occasions only Drug use: Never Substance use type: does not use Household members: spouse, children and other Details: son Akhil Number of Children: 1 current occupation: works for [employer] Sexually active: Yes Do you think of yourself as: straight/heterosexual Current gender identity: female What is your relationship status?: Panel score (0-1 are the most socially isolated patients): 1 What type of physical activity do you participate in: regular exercise Do you feel safe at home: Yes Do you feel safe in your relationship?: Yes Female Reproductive History Menstrual control method: none History History 4 Para 2 Hx # Term Pregnancies Multiple births Hx # Pregnancies Ectopic pregnancies AB induced 1 Hx Number of Living Children 2 AB spontaneous 1 Past Pregnancies Del. Date GA/Weeks # Preg Succ Route Wgt Sex Labor Lgth Anesthesia Location Prov [facility] 07/17/17 41 No 8 lb 11 oz Male Tam 03/10/22 37 No Yes 6 lb 9.[address] Turcios Delivery Date: 07/17/17 Last Updated by: Nisha Turcios M.D. IOL attempted. pitocin and ripening balloon unsuccessful. Akhil. Delivery Date: 03/10/22 Last Updated by: Thalia Segura LPN Baby name [place] Meds Allergies and Home Medications Allergies Allergy/AdvReac Type Severity Reaction Status Date / Time cefaclor (From [facility]) Allergy Mild unsure Verified 03/07/25 13:02 Home Medications ?Medication ?Instructions ?Recorded ?Confirmed ?Type vits no.126-ferrous fum tab PO 10/22/24 02/21/25 History 28 mg iron-folic acid 800 mcg tablet (Classic ) Exam Physical Exam Vital signs: Pulse of 98 blood pressure 110/76. No heart tones. Notable Details: Absence of heart tones Constitutional Constitutional: mild distress (Due to demise) Detailed Labor and Delivery Exam Mix Score: Cervical Points Exam 0 1 2 3 Dilation Closed 1-2cm 3-4 cm 5-6cm Effacement 0-30% 40-50% 60-70% 80% Consistency Firm Medium Soft Station -3 -2 -1,0 +1,+2 Position Posterior Mid Anterior Neck Exam Neck Exam: Normal Chest/Brest/Axilla Exam Chest Exam: Normal Detailed Respiratory Exam Respiratory: Present CTA bilaterally; Absent rales, rhonchi or wheezes Detail Cardiovascular Exam Cardiovascular: Present RRR, S1 and S2; Absent murmur Detailed Abdominal Exam Abdominal: Present soft and surgical scars; Absent tenderness, distended, rebound or guarding Detailed Extremities Exam Extremities: Absent cyanosis or edema Neurological Exam Neurological Exam: Normal Psychiatric Exam Psychiatric Exam: Normal Ultrasound OB Ultrasound done for other reason. (Viability, absence of heart tones, Doppler, limited fluid.). Risk Assessment Risk for Shoulder Dystocia Historical/Initial OB: NEGATIVE FOR: Pelvic Abnormality, Pre- BMI>30, Previous Shoulder Dystocia or Previous Macrosomia Risk for Pre-Eclampsia Date Initiated/Initials: 11/08/24 Yes, if one or more: NEGATIVE FOR: Hx Pre-E/Gest HTN, Chronic HTN, Multiple Gestation, Pre-gestational DM, Renal Disease, Systemic Lupus or APA Syndrome Yes, if 2 or more: POSITIVE FOR: Mother/Sister w/ Pre-E and Previous IUGR; NEGATIVE FOR: Nulliparity, Age>= 35 yrs, >10yr btwn pregnancies, BMI>30 or ethinicty Risk for Post- Hemorrhage Initial: NEGATIVE FOR: Multiple Gestation, Previous PPH, Known Clotting Deficiency, Grand Multiparity or Anticoagulation Risks Reviewed Risks Reviewed Upon Admission: Yes
[2025-03-11 04:20] LABS: Abs Immature Grans 0.09 10^3/uL (0.0-0.06); HCT 39.3 % (36.0-46.0); HGB 13.0 g/dL (11.2-15.7); Immature Grans % 1.2 %; MCH 30.7 pg (27.0-33.0); MCHC 33.1 % (32.0-36.0); MCV 93 fL (80-95); MPV 10.7 fL (8.0-11.0); Platelet Count 198 10^3/uL (130-400); RBC 4.23 10^6/uL (3.93-5.22); RDW 13.0 % (11.7-14.6); RDW-SD 43.8 fL; WBC 7.62 10^3/uL (4.4-10.8)
[2025-03-11 04:29] LABS: Glucose Negative (Negative)
[2025-03-11 04:32] LABS: INR 0.9 (0.9-1.1); PTT Activated 22.5 sec (20.6-30.2); Prothrombin Time 9.4 sec (9.1-11.1)
[2025-03-11 04:36] LABS: ALT 20 U/L (14-59); AST 12 U/L (15-37); Albumin 2.7 g/dL (3.4-5.0); Alkaline Phosphatase 73 U/L (46-116); Anion Gap 11.6 mmol/L (3-11); BUN 12 mg/dL (7-18); Bilirubin, Total 0.3 mg/dL (0.2-1.0); CO2 23.4 mmol/L (21.0-32.0); Calcium 9.0 mg/dL (8.5-10.1); Chloride 106 mmol/L (98-107); Estimated GFR 126.93 (mL/min/1.73m2); Glucose 99 mg/dL (74-106); Potassium 4.1 mmol/L (3.5-5.1); Sodium 141 mmol/L (136-145); Total Protein 7.0 g/dL (6.4-8.2)
[2025-03-11 04:41] LABS: PROTEIN < 6.0 mg/dL
[2025-03-11 04:46] LABS: TSH (W/Ref FT4) 3.34 uIU/mL (0.36-3.74)
--- NOTE | 2025-03-11 04:55 | NUR.NOTE ---
Pt given book to help explain to her other children. encouraged to call [facility] or Center for any questions or concerns.
--- NOTE | 2025-03-11 05:18 | DSE_ITS ---
Date of service: 03/11/25 Time of Service: 05:18 DS: Diagnosis Discharge Diagnosis (1) : Status: Acute (2) Rh negative state in antepartum period: Status: Acute Asessment and Plan: Received RhoGAM at 28 weeks (3) section: Asessment and Plan: Prior x 2, declines trial of labor (4) demise, greater than 22 weeks, antepartum, single gestation: Status: Acute Asessment and Plan: Documented demise at 28 weeks. Patient desires surgical . Will arrange in the very near future. In the interval, we will DC home, precautions were given. Surgical arrangement to be made. Support services offered including pastoral care, home services, emotional support. Discharge Plan Disposition Patient Disposition: Home W/Home Health Services Condition: Good Discharge Details Reason For Visit: no movement Attending Provider: Aliza Maciel Primary Care Provider: Rochelle Martin Hospital Course Hospital Course: Patient phoned earlier this morning with no movement. Unable to auscultate heart rate, bedside ultrasound confirms demise. Baseline laboratory studies obtained. Conversation regarding mode and timing of delivery. Patient declines trial of labor and is opting for hysterotomy. She would like to be discharged home today to have conversations with family members, and process this information. Will arrange her surgical procedure in the very near future. All support options were offered including pastoral care, home services, emotional support. Home Meds and New Rx's Prescriptions: No Action Classic 28 mg iron- 800 mcg tablet PO Discharge Instructions Activity:: Activity as Tolerated Diet:: N.p.o. after midnight Discharge Data Discharge Date/Time-TO BE ENTERED AT DEPARTURE: 03/11/25 04:55 OB:DS Summary Contraception Discussed Contraception Discussed: No, Status at Discharge Functional status at discharge: independent ambulation Overall status at discharge: patient is back to baseline Mental Status: mental status grossly normal Speech and Movement: speech and movement normal Mood: congruent mood Affect: other (Appropriately grieving) [facility] All Active Problems (Updated 03/11/25 @ 04:56 by Aliza Maciel DO) demise, greater than 22 weeks, antepartum, single gestation (Acute) Nausea and vomiting (Acute) Rh negative state in antepartum period (Acute) Received RhoGAM (Acute) Medical History (Updated 03/11/25 @ 04:56 by Aliza Maciel DO) Headache History of abnormal cervical Pap smear Edema of left lower leg History of kidney infection Left flank pain Blackout spell Cervical disc herniation Migraine headache with aura Paralysis of left upper extremity Left leg weakness Hirsutism IUD surveillance (08/08/24) Paragard Bipolar I disorder (03/21/17) Currently no evidence of gavin or acute depression. Cervical high risk HPV (human papillomavirus) test positive 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 Colposcopy 09/10/2024. ECC with no cervical biopsy. PCOS (polycystic ovarian syndrome) Anxiety Surgical History History of delivery section (07/27/17) 07/25/17. PC/S. Unsuccessful IOL at 41w. MKendal Landaverde. aoc/dd. Family History Mother Depression Father , car accident at age 33. Essential hypertension Bipolar disorder Sister Asthma Grandfather Stroke Grandmother Diabetes Grandfather Prostate cancer Cancer of kidney Grandmother Parkinsons disease Social History Smoking/Tobacco Use Status: Never Second Hand Exposure: No Smoking risk assessment performed?: Yes Alcohol Intake: current Alcohol Intake frequency: holidays/special occasions only Drug use: Never Substance use type: does not use Household members: spouse, children and other Details: son Akhil Number of Children: 1 current occupation: works for [employer] Sexually active: Yes Do you think of yourself as: straight/heterosexual Current gender identity: female What is your relationship status?: Panel score (0-1 are the most socially isolated patients): 1 What type of physical activity do you participate in: regular exercise Do you feel safe at home: Yes Do you feel safe in your relationship?: Yes Female Reproductive History Menstrual control method: none History History 4 Para 2 Hx # Term Pregnancies Multiple births Hx # Pregnancies Ectopic pregnancies AB induced 1 Hx Number of Living Children 2 AB spontaneous 1 Past Pregnancies Del. Date GA/Weeks # Preg Succ Route Wgt Sex Labor Lgth Anesth esia Location Prov [facility] 07/17/17 41 No 8 lb 11 oz Male [facility] 03/10/22 37 No Yes 6 lb 9.[address] Turcios Delivery Date: 07/17/17 Last Updated by: Nisha Turcios M.D. IOL attempted. pitocin and ripening balloon unsuccessful. Akhil. Delivery Date: 03/10/22 Last Updated by: Thalia Segura LPN Baby name [place] DS: Data Data Completed and Pending Labs on day of discharge: Labs from last 24 hours 03/11/25 03/11/25 04:20 04:00 WBC 7.62 RBC 4.23 Hgb 13.0 Hct 39.3 MCV 93 MCH 30.7 MCHC 33.1 RDW 13.0 Plt Count 198 MPV 10.7 Immature Gran % 1.2 Neutrophils % 69.6 Lymphocytes % 21.1 Monocytes % 7.0 Eosinophils % 0.8 Basophils % 0.3 Nucleated RBC % 0.0 Absolute Neutrophils 5.31 Absolute Lymphocytes 1.61 Absolute Monocytes 0.53 Absolute Eosinophils 0.06 Absolute Basophils 0.02 PT 9.4 INR 0.9 APTT 22.5 Fibrinogen Pending Sodium 141 Potassium 4.1 Chloride 106 Carbon Dioxide 23.4 Anion Gap 11.6 H BUN 12 Creatinine 0.5 L Est GFR (CKD-EPI 2020) 126.93 Glucose 99 Hemoglobin A1c Pending Calcium 9.0 Total Bilirubin 0.3 AST 12 L ALT 20 Alkaline Phosphatase 73 Total Protein 7.0 Albumin 2.7 L TSH 3.34 Urine Color Cancelled Yellow Urine Clarity Cancelled Clear Urine pH Cancelled 6.5 Ur Specific [place] Cancelled 1.010 Urine Protein Cancelled Negative Urine Ketones Cancelled Negative Urine Blood Cancelled Negative Urine Nitrite Cancelled Negative Urine Bilirubin Cancelled Negative Urine Urobilinogen Cancelled 0.2 Ur Leukocyte Esterase Cancelled Negative Ur Random Creatinine Cancelled 27.74 U Random Total Protein Cancelled < 6.0 U [place] Prot/Creat Ratio Cancelled Urine Glucose Cancelled Negative CMV IgM Ab Pending HSV I IgG Ab Pending HSV II IgG Pending Parvovirus B19 IgG Ab Pending Parvovirus B19 IgM Ab Pending Parvovirus Interpret Pending ABO/Rh Pending Antibody Screen Pending
[2025-03-11 05:27] LABS: Hemoglobin A1C 4.8 % (<5.7)
[2025-03-11 17:30] LABS: Fibrinogen 443 mg/dL (171-384)
[2025-03-13 09:58] LABS: HSV Type 2 Ab, IgG Negative (Negative)
[2025-03-13 11:52] LABS: CMV Ab, IgM Negative (Negative)
[2025-03-13 14:31] LABS: Parvovirus B19 Ab, IgG Negative (Negative); Parvovirus B19 Ab, IgM Negative (Negative)
== END 2025-03-11 04:55 | disposition home health service (06) ==
LOC: BCD 01:26 → OBS 04:18
PROVIDERS: PCP Nurse Practitioner Family; Visit Provider Obstetrics & Gynecology
DX: O26.893 Other specified pregnancy related conditions, third trimester; Z67.91 Unspecified blood type, Rh negative; O36.4XX0 Maternal care for intrauterine death, not applicable or unspecified
CPT/HCPCS: 80053; 85384; 86850; 86900; 86901; 81003; 82565; 83036; 84156; 84443; 85025; 85610; 85730; 86645; 86695; 86696; 86747; 86870; G0378

== ENCOUNTER 2025-03-11 22:43 | Observation (INO) | payer BC, MEDICAID, SELFPAY ==
[2025-03-11 23:25] VITALS: BP 134/76; PULSE 90; RESP 18; TEMP 36.6; O2SAT 98
--- NOTE | 2025-03-11 23:30 | HPE_ITS ---
Date of service: 03/11/25 Time of Service: 23:31 Assessment and Plan Assessment and plan (1) demise, greater than 22 weeks, antepartum, single gestation: Status: Acute Assessment and plan: 34yo P2 @28wks with IUFD. Came in tonight due to generalized concerns and a high level of anxiety. Labs normal and exam benign. Pt feels reassured being in the hospital. Will admit for observation overnight with plans to do her repeat CS in the am. Offered ambien for sleep and she accepted that. (2) Status post repeat low transverse section: Status: Resolved OB-HPI Labor/Delivery History of Present Illness Reason for Visit: 28 4/7 weeks EGA IUFD r/o labor Chief Complaint: Other ( demise, planned CS). BAR Calculator Estimated Delivery Date Method WG Current Estimate 05/29/25 Ultrasound #2 Other Estimates 04/17/25 LMP (Uncertain) 06/03/25 Ultrasound #1 Infant Delivery Date-Baby A 03/12/25 28w 6d History of Present Expected Delivery Route/Plan MD care- repeat (#3) FOB - Raul Quiroga (third child together) Prefers no discussion of vaccines during her or after Specific Issues/Plan 1. Prior CS x2, prefers repeat & salpingectomy 2. Desires permanent sterilization via salpingectomy with CS 3. History of pyelonephritis 4. History of migraine with aura 5. History of Bipolar disorder-therapy currently and keto diet have helped. TSH 1.30 6. History of PCOS - Hgb A1C=4.7 - She lost significant weight on medications prior to and didn't stop until she found out she was . - 30# weight gain at 24wks - Pt reports eating a healthy diet and staying active. 7. ASCUS pap with + HPV (non-6 or 18), Colposcopy with biopsies 08/2024 at [facility] 8. RH neg, Rcv'd rhogam at 28 wks 9. 5-Ps neg 10. Genetic screening: cfDNA normal. SMA carrier neg. 11. demise at 28 weeks Narrative: Pt went home today and attempted to rest. She has felt very fatigued. She ate a little bit here and there. No nausea until she arrived here this evening when she vomited. No BM since she had diarrhea last evening. Minimal continued cramping throughout the day. Some low back discomfort. Feels like the baby is kicking my ribs but she knows she can't be moving. This improves when she lays down. No bleeding, loss of fluid or change in discharge. She is feeling very anxious and worried that something could go wrong and harm her. Review of Systems Constitutional Constitutional: Reports system reviewed and no additional complaints, except as documented Genitourinary Genitourinary: Reports system reviewed and no additional complaints, except as documented PFSH All Active Problems (Updated 03/12/25 @ 10:14 by Aliza Maciel DO) Status post appendectomy (Acute) Appendicitis (Acute) demise, greater than 22 weeks, antepartum, single gestation (Acute) Nausea and vomiting (Acute) Rh negative state in antepartum period (Acute) Received RhoGAM (Acute) Medical History (Updated 03/12/25 @ 10:14 by Aliza Maciel DO) History of abnormal cervical Pap smear 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 Colposcopy 09/10/2024. ECC with no cervical biopsy. History of kidney infection Left flank pain Cervical disc herniation Migraine headache with aura Left leg weakness Paralysis of left upper extremity Hirsutism Anxiety Bipolar I disorder (03/21/17) Currently no evidence of gavin or acute depression. PCOS (polycystic ovarian syndrome) Surgical History (Updated 03/13/25 @ 09:25 by Aliza Maciel DO) History of delivery section (07/27/17) 07/25/17. PC/S. Unsuccessful IOL at 41w. MKendal Landaverde. aoc/dd. Family History Mother Depression Father , car accident at age 33. Essential hypertension Bipolar disorder Sister Asthma Grandfather Stroke Grandmother Diabetes Grandfather Prostate cancer Cancer of kidney Grandmother Parkinsons disease Social History Smoking/Tobacco Use Status: Never Second Hand Exposure: No Smoking risk assessment performed?: Yes Alcohol Intake: current Alcohol Intake frequency: holidays/special occasions only Drug use: Never Substance use type: does not use Household members: spouse, children and other Details: estelle Landaverde Number of Children: 1 current occupation: works for [employer] Sexually active: Yes Do you think of yourself as: straight/heterosexual Current gender identity: female What is your relationship status?: Panel score (0-1 are the most socially isolated patients): 1 What type of physical activity do you participate in: regular exercise Do you feel safe at home: Yes Do you feel safe in your relationship?: Yes Female Reproductive History Menstrual control method: none History History 4 Para 2 Hx # Term Pregnancies Multiple births Hx # Pregnancies Ectopic pregnancies AB induced 1 Hx Number of Living Children 2 AB spontaneous 1 Past Pregnancies Del. Date GA/Weeks # Preg Succ Route Wgt Sex Labor Lgth Anesth esia Location Prov Complic 07/17/17 41 No 8 lb 11 oz Male Jorge Pemberton 03/10/22 37 No Yes 6 lb 9.[address] Turcios Delivery Date: 07/17/17 Last Updated by: Nisha Turcios M.D. IOL attempted. pitocin and ripening balloon unsuccessful. Akhil. Delivery Date: 03/10/22 Last Updated by: Thalia Segura LPN Baby name [facility] Allergies and Home Medications Allergies Allergy/AdvReac Type Severity Reaction Status Date / Time cefaclor (From [facility]) Allergy Mild unsure Verified 03/07/25 13:02 Home Medications ?Medication ?Instructions ?Recorded ?Confirmed ?Type vits no.126-ferrous fum tab PO 10/22/2402/21 History 28 mg iron-folic acid 800 mcg tablet (Classic ) Exam Detailed Labor and Delivery Exam Mix Score: Cervical Points Exam 0 1 2 3 Dilation Closed 1-2cm 3-4 cm 5-6cm Effacement 0-30% 40-50% 60-70% 80% Consistency Firm Medium Soft Station -3 -2 -1,0 +1,+2 Position Posterior Mid Anterior Comments: No e/o regular contractions Detailed HEENT Exam Head: Present normocephalic and atraumatic Detailed Abdominal Exam Comments: gravid, mild tenderness in several locations but nothing impressive. Abdomen is soft. Detailed Neurological Exam Neurological: Present alert, oriented X3 and CN II-XII intact DetailedPsychiatric Exam Psychiatric: Present normal affect, normal thought process and cooperative Comments: Pt grieving appropriately. Results Results Blood Type: O- Rubella Status: Immune Varicella Immunity: Immune Risk Assessment Risk for Shoulder Dystocia Historical/Initial OB: NEGATIVE FOR: Pelvic Abnormality, Pre- BMI>30, Previous Shoulder Dystocia or Previous Macrosomia Risk for Pre-Eclampsia Date Initiated/Initials: 11/08/24 Yes, if one or more: NEGATIVE FOR: Hx Pre-E/Gest HTN, Chronic HTN, Multiple Gestation, Pre-gestational DM, Renal Disease, Systemic Lupus or APA Syndrome Yes, if 2 or more: POSITIVE FOR: Mother/Sister w/ Pre-E and Previous IUGR; NEGATIVE FOR: Nulliparity, Age>= 35 yrs, >10yr btwn pregnancies, BMI>30 or ethinicty Risk for Post- Hemorrhage Initial: NEGATIVE FOR: Multiple Gestation, Previous PPH, Known Clotting Deficiency, Grand Multiparity or Anticoagulation Risks Reviewed Risks Reviewed Upon Admission: Yes
[2025-03-11 23:51] LABS: HCT 36.3 % (36.0-46.0); HGB 12.3 g/dL (11.2-15.7); MCH 31.1 pg (27.0-33.0); MCHC 33.9 % (32.0-36.0); MCV 92 fL (80-95); MPV 9.9 fL (8.0-11.0); Platelet Count 204 10^3/uL (130-400); RBC 3.95 10^6/uL (3.93-5.22); RDW 13.2 % (11.7-14.6); RDW-SD 43.8 fL; WBC 8.02 10^3/uL (4.4-10.8)
[2025-03-12] VITALS (19 sets, daily range): BP systolic 102–134; BP diastolic 67–76; PULSE 79–93; RESP 16–18; TEMP 36.5–36.9; O2SAT 97–100; BMI 34.5
[2025-03-12] MEDS: Zolpidem 5 MG TAB ×2 (00:08)
--- NOTE | 2025-03-12 07:26 | ANES.PREOP_ITS ---
General Info Date of Service Date Performed: 03/12/25 Height: 5 ft 3 in Weight: 88.451 kg Body Mass Index (BMI): 34.5 Surgical Procedure: Operation Date: 03/12/25 07:40 Proposed Procedure Side Surgeon p Hysterotomy, possible hysterectomy Aliza Maciel DO Meds Allergies and Home Medications Allergies Allergy/AdvReac Type Severity Reaction Status Date / Time cefaclor (From [facility]) Allergy Mild unsure Verified 03/07/25 13:02 Home Medication ?Medication ?Instructions ?Recorded vits no.126-ferrous fum tab PO 10/22/24 28 mg iron-folic acid 800 mcg tablet (Classic ) Current Visit Medications: Current Medications Generic Name Dose Route Start Last Admin Trade Name Freq PRN Reason Stop Dose Admin Citric Acid/Sodium Citrate 30 ml 03/11/25 23:45 Sodium Citrate 30 Ml Cup PO PREOP DOM Cefazolin Sodium/Dextrose 2 gm in 50 mls @ 100 mls/hr 03/11/25 23:30 Ancef Duplex IVPB PREOP DOM Azithromycin 500 mg/ Sodium 250 mls @ 250 mls/hr 03/11/25 23:30 Chloride IVPB PREOP DOM Ringer's Solution 1,000 mls @ 200 mls/hr 03/11/25 23:30 IV INFUSION DOM IV Miscellaneous Supplies 1 each 03/11/25 23:30 Iv Access IV DIRECTED DOM Sodium Chloride 0 ml 03/11/25 23:24 Normal Saline Flush 10 Ml Syr IVP PRN PRN Sodium Chloride 0 ml 03/12/25 08:30 Normal Saline Flush 10 Ml Syr IVP BID DOM Sodium Chloride 0 ml 03/11/25 23:24 Normal Saline 10 Ml Vial IJ DIRECTED PRN PFSH Active Problems Active Problems: Problem Status Onset Code demise, greater than 22 weeks, antepartum, single gestation Acute O36.4XX0 Nausea and vomiting Acute R11.2 Rh negative state in antepartum period Acute O26.899, Z67.91 Acute Z34.90 Medical History Medical History (Updated 03/12/25 @ 00:04 by PASCUAL MARIN) History of abnormal cervical Pap smear 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 Colposcopy 09/10/2024. ECC with no cervical biopsy. History of kidney infection Left flank pain Cervical disc herniation Migraine headache with aura Paralysis of left upper extremity Left leg weakness Hirsutism Bipolar I disorder (03/21/17) Currently no evidence of gavin or acute depression. PCOS (polycystic ovarian syndrome) Anxiety Surgical History Surgical History History of delivery section (07/27/17) 07/25/17. PC/S. Unsuccessful IOL at 41w. MKendal Landaverde. aoc/dd. Tobacco Smoking/Tobacco Use Status: Never Passive smoking exposure: No Second hand exposure: No Alcohol Alcohol Intake: current Alcohol intake frequency: holidays/special occasions only Substance Use Substance use: Never Substance use type: does not use Prental History History 2 4 Para 2 Hx # Term Pregnancies Multiple births Hx # Pregnancies Ectopic pregnancies AB induced 1 Hx Number of Living Children 2 AB spontaneous 1 Past Pregnancies Del. Date GA/Weeks # Preg Succ Route Wgt Sex Labor Lgth Anesth esia Location [facility] 07/17/17 41 No 3940.584 g Male Danilo' Nilay 03/10/22 37 No Yes 2990.875 g Female D r O'Nilay Delivery Date: 07/17/17 Last Updated by: Nisha Turcios M.D. IOL attempted. pitocin and ripening balloon unsuccessful. Akhil. Delivery Date: 03/10/22 Last Updated by: Thalia Segura LPN Baby name [place] Vital Signs and Lab Results Vital Signs Most Recent Vital Signs in EMR: Most Recent Vital Signs Temp Pulse Resp BP Pulse Ox 36.6 C 90 18 134/76 98 03/12/25 00:30 03/12/25 00:30 03/12/25 00:30 03/12/25 00:30 03/12/25 00:30 Lab Results 03/11/25 23:43 Blood Type / Crossmatch: 2 Antibody Screen POSITIVE 03/11/25 Complete Blood Count: 2 WBC, (4.4-10.8) 8.02 10^3/uL 03/11/25, 23:43 RBC, (3.93-5.22) 3.95 10^6/uL 03/11/25, 23:43 Hgb, (11.2-15.7) 12.3 g/dL 03/11/25, 23:43 Hct, (36.0-46.0) 36.3 % 03/11/25, 23:43 Plt Count, (130-400) 204 10^3/uL 03/11/25, 23:43 Complete Metabolic Panel: 2 Sodium, (136-145) 141 mmol/L 03/11/25, 04:00 Potassium, (3.5-5.1) 4.1 mmol/L 03/11/25, 04:00 Chloride, (98-107) 106 mmol/L 03/11/25, 04:00 Carbon Dioxide, (21.0-32.0) 23.4 mmol/L 03/11/25, 04 :00 BUN, (7-18) 12 mg/dL 03/11/25, 04:00 Creatinine, (0.55-1.02) 0.5 mg/dL L 03/11/25, 04:00 Est GFR (CKD-EPI 2020), (mL/min/1.73m2) 126.93 03/11/25, 04:00 Calcium, (8.5-10.1) 9.0 mg/dL 03/11/25, 04:00 Albumin, (3.4-5.0) 2.7 g/dL L 03/11/25, 04:00 Glucose, (74-106) 99 mg/dL 03/11/25, 04:00 Hemoglobin A1c, (<5.7) 4.8 % 03/11/25, 04:00 Liver Function Panel: 2 ALT, (14-59) 20 U/L 03/11/25, 04:00 AST, (15-37) 12 U/L L 03/11/25, 04:00 Coagulation Panel: 2 INR, (0.9-1.1) 0.9 03/11/25, 04:00 PT, (9.1-11.1) 9.4 sec 03/11/25, 04:00 APTT, (20.6-30.2) 22.5 sec 03/11/25, 04:00 Fibrinogen Pending 03/11/25, 04:00 Thyroid Panel: 2 TSH, (0.36-3.74) 3.34 uIU/mL 03/11/25, 04:00 Anesthesia Assessment and Plan Anesthesia History Personal History: No History of Anesthesia Complications Family History: No Family History of Anesthesia Complications Exercise Tolerance Exercise Tolerance: Metabolic Equivalents>4 Pertinent Negatives Pertinent Negatives: No Major Cardiovascular Symptoms or Complaints, No Major Pulmonary Symptoms or Complaints and No History of CVA/TIA Cardiac & Pulmonary Exam Cardiac Exam: Normal S1/S2 Heart Sounds Pulmonary Exam: Clear Bilateral Breath Sounds Implantable Cardiac Device Does patient have a Pacemaker or an ICD?: No Airway Exam Known Difficult Airway: No Mallampati Class: 1 Mouth Opening: Normal (> 3cm) Thyromental Distance: Greater than 3 cm Neck Range of Motion: Full ROM Neck Circumference: Normal Teeth Condition: Normal Dentition ASA Classification ASA Score: ASA 2 Emergency Case?: No NPO Status NPO Status: NPO Clears >2 hours, Solids >8 hours Status Status: Other ( demise) Anesthesia Plan Resuscitation Status: Full Code Anesthesia Technique: Spinal Anesthesia Airway Planned: Natural Airway Pain Management: Intrathecal Analgesia Monitors Used: Standard Monitors Preoperative Comments:: 28 wk demise
[2025-03-12] MEDS: Lactated Ringers 1,000 ML 125 ML IV (07:33)
[2025-03-12] MEDS: AZITHROMYCIN 500 MG in Normal Saline 250 ML 250 MG IVPB (07:42)
[2025-03-12] MEDS: Sodium Citrate 30 ML CUP PO (07:42)
[2025-03-12] MEDS: ceFAZolin 2 GM/50 ML BAG IVPB (08:17)
[2025-03-12] MEDS: Bupivacaine 0.25% Pres-Free 30 ML VIAL (08:25)
--- NOTE | 2025-03-12 08:50 | PLAC_PTH ---
PATIENT: Jahaira Faust LOC: OBS U#:[id number] AGE/SX: 34/F ROOM: OBS.306 RE03/11/[address]: Annabel Salinas MD : 1990 BED: A DIS: 03/14/2025 SPEC #: [id number] RECD: 03/12/25 12:26 STATUS: FARHNA REQ #: [id number] UMU: 03/12/25 08:[address]: Aliza Maciel DEPT: Surgical Specimen RECD BY: Celeste Hall ENTERED: 03/12/25 12:28 SP TYPE: PLAC OTHR DR: MD Mario Reyes Abby Tissues: 1 - PLACENTA (NOT 3RD TRIMESTER) Procedures: GROSS AND MICRO LEVEL 5 Comments: [id number] (REPORT COMBINED WITH [id number])
--- NOTE | 2025-03-12 09:40 | APP_PTH ---
PATIENT: Jahaira Faust LOC: OBS U#:[id number] AGE/SX: 34/F ROOM: OBS.306 RE03/11/[address]: Annabel Salinas MD : 1990 BED: A DIS: 03/14/2025 SPEC #: [id number] RECD: 03/12/25 12:31 STATUS: FARHAN REQ #: [id number] UMU: 03/12/25 09:[address]: Leighton Mays DEPT: Surgical Specimen RECD BY: Celeste Hall ENTERED: 03/12/25 12:33 SP TYPE: Appendix OTHR DR: MD Mario Reyes Abby Tissues: 1 - APPENDIX NOT INCIDENTAL Procedures: GROSS AND MICRO LEVEL 3 Comments: [id number] (REPORT COMBINED WITH [id number])
--- NOTE | 2025-03-12 09:59 | ROE_ITS ---
Operative Note Operative Note PRE-OP DIAGNOSIS: Unexplained demise at 28 weeks gestation POST-OP DIAGNOSIS: other (Appendicitis) PROCEDURE: Open appendectomy SURGEON: Leighton Mays ASSISTING SURGEON: Aliza Maciel ANESTHESIA TYPE: Spinal Refer to Anesthesia Record ESTIMATED BLOOD LOSS: 25 PATHOLOGY: other (Appendix) COMPLICATIONS: None Patient was transported to: PACU Patient's condition: stable Indications: Jahaira is a 34-year-old woman admitted to the obstetrics service after a chief complaint of no movement for several days. She underwent an ultrasound that confirmed the absence of cardiac activity nor Doppler waveforms. She was diagnosed with demise. She was brought to the operating room for delivery of fetus. During the course of the procedure, her appendix appeared little bit thickened, and I was asked for my opinion regarding an intraoperative diagnosis of appendicitis. Findings: Thickened appendiceal tip suggestive of early appendicitis Procedure Description: I was asked to join Drs. Maciel and Brad in the operating room over con cern for appendicitis. They had already performed a section, and in the course of exposure, felt that the distal portion of the appendix may be abnormal. Dr. Maciel provided a brief summary of Jahaira's recent and demise. I scrubbed, and doing them at the operating room table. The distal third of the appendix did appear and feel thickened. There was some mild erythema. There was no evidence of any significant adhesions that would account for these findings. The remainder of the appendix was normal and healthy appearing. Given the clinical context, and the appearance of the appendix, it certainly seems possible that this is early acute appendicitis. I briefly explained the findings to Jahaira in the presence of her , and I recommended appendectomy in an effort to reduce any periprocedural complications, evolution of fulminant appendicitis, and to minimize the risk of future pregnancies if it was the case that acute appendicitis contributed to this. Jahaira agreed with that. Next, I made a small opening in the base of the mesoappendix at the cecum. The mesoappendix proper was controlled with Cassie clamps, and then sharply divided. The appendiceal stump was oversewn with an 0 Vicryl suture. The appendix was then divided off the cecum with a single fire of a CHANDU stapler. The staple line was healthy appearing and hemostatic. There was a small hematoma developing within the base of the mesoappendix, however. There was a small amount of bleeding within the base of the mesoappendix. This was opened, and a small hematoma was evacuated. There was a small amount of bleeding that was controlled with the LigaSure. The site was irrigated clean. It was hemostatic. The peritoneal reflection of the mesoappendix was then reapproximated with interrupted Vicryl sutures. Again, everything appeared hemostatic and clean. There was no spillage from the appendectomy. I then turned the conduct of the operation back over to Dr. Maciel for completion of the and closure. Estimated blood loss from the appendectomy was 25 mL Date of Procedure: 03/12/25
--- NOTE | 2025-03-12 10:04 | PDOC.OPNB_ITS ---
Date of service: 03/12/25 Time of Service: 10:04 Operative Note Operative Note Delivery Method: Scheduled and Repeat (x2) Previous LT Incision: Yes DATE OF PROCEDURE: 03/12/25 PRE-OP DIAGNOSES: Prior x 2, demise 28 weeks. POST-OP DIAGNOSES: other (Appendicitis) Declines trial of labor PROCEDURE: Repeat low-transverse , appendectomy SURGEON: Leighton Mays Assisting Surgeon: Aliza Maciel Fire Prevention Inspector: Annabel Salinas Estimated blood loss (mL): 25 Pathology: other (Appendix) Complications: None Patient was transported to: floor Patient's condition: stable Indications: demise at 28 weeks. Prior x 2, declines trial of labor. Firm appendix at time of surgery, intraoperative consultation Findings: Normal-appearing uterus, tubes, ovaries. Delivery of female , known stillbirth. Adherent placenta, delivered. Firm appendix Procedure Description: After full informed consent was obtained, patient was taken the operating suite. She was placed in the seated position. She had an IV running. Spinal anesthesia was administered per anesthesia. She was then placed in the dorsal supine position and prepped, including vaginal preparation, and draped in the usual sterile fashion. She had pneumatic compression stockings for DVT prophylaxis. She had a Pompa catheter inserted for continuous bladder drainage. She received Ancef, 2 g and Zithromax 500 mg for surgical site infection prophylaxis. A timeout was held. Quarter percent Marcaine was used infiltrate her previous Pfannenstiel scar. Skin incision was made and carried down to the underlying fascia. The fascia was incised in the midline and fascial incision extended laterally. The fascia was then elevated and the peritoneum identified and entered sharply. There is noted to be adhesions of the omentum to the anterior abdominal wall. These were meticulously dissected away allowing visualization of her abdomen and pelvis. Rectus muscles were in the midline. A bladder blade was inserted and the vesicouterine peritoneum was identified tented up and entered sharply. A bladder flap was then created and the bladder blade reinserted. A low transverse uterine incision was made through the uterine wall. As of note the uterine myometrium was thickened as nonlabored. The incision was elevated with Allis clamps and the uterus entered. There was artificial rupture of membranes for yellow-tinged fluid. There is no foul odor or blood noted. The vertex was delivered atraumatically through the uterine incision. Body and shoulders followed without difficulty. As of note, the cord appeared hypercoiled though no evidence of knots or defect. The cord was clamped and the , stillborn, was handed off to the waiting nursing staff. At this point, the placenta was manually extracted from the uterus. There was noted to be some amount of adhesion of the placenta to the uterine wall. At this point, the uterus was exteriorized cleared of all clot and debris. There was no evidence of remaining placental fragments that could be visualized or felt. The uterine incision was then closed using 0 Monocryl suture in a 2 layer fashion first be ing running locked, second being imbricating. There was an area at the mid left aspect of the uterine incision that was not hemostatic at the serosal surface which was oversewn with 2 [id number] sutures achieving hemostasis. At this point the abdomen was irrigated with copious amounts of normal saline. The area of adhesion from the omentum to the anterior abdominal wall was visualized with none hemostasis and oversewn with a single stitch of 0 Monocryl suture. Hemostasis was achieved. On inspection of the abdomen and pelvis, the appendix was noted to be firm at the tip. General surgery consultation was obtained. Appendectomy performed by Dr. Leighton Mays. Please see his note. Upon completion of the appendectomy, abdomen again was irrigated with copious amounts of normal saline and incision noted to be hemostatic. The fascial incision was then closed using 0 Vicryl suture in a running fashion. Subcutaneous tissue irrigated with copious amounts of normal saline and the sub cu space reapproximated with 3-0 Vicryl in a simple interrupted fashion. Skin edge was reapproximated with 4-0 undyed Monocryl and Steri-Strips and Mepilex dressing were placed. Patient returned to the center with a Pompa catheter draining clear yellow urine. QBL: 640 mL total, 600 time of , 40 mL from the appendectomy Pathology: Placenta for examination, appendix. Fluids: Crystalloid per anesthesia Complications: None apparent Findings: Normal-appearing uterus, tubes, ovaries. Delivery of known stillborn female infant. No gross abnormalities noted. Evidence of appendicitis as per dictation. Infant Gender: Female
--- NOTE | 2025-03-12 10:38 | NUR.NOTE ---
Call placed to [facility] per protocol following delivery of IUFD past 20 weeks gestation. Spoke with Fara and referral declined. Reference number [id number]. Nursing Note:
[2025-03-12] MEDS: oxyCODONE 5 MG TAB PO (11:26)
[2025-03-12] MEDS: NALBUPHINE 5 MG in Normal Saline 50 ML 100 MG IVPB (11:27)
[2025-03-12] MEDS: Ketorolac 15 MG/ML VIAL IVP ×2 (15:10→20:57)
--- NOTE | 2025-03-12 17:19 | CMPROGNOTE_ITS ---
Date of service: 03/12/25 Time of Service: 17:19 Care Management Progress Note Progress Note Text Progress Note Text: CM was notified by RN on the center of Jahaira having a today, due to a demise at 28 weeks, of unknown cause. CM met with Jahaira's primary RN and supporting RN on the center, and reviewed necessary paperwork. RN/provider to complete paperwork needed, including a signature from Jahaira or her , Tomas. CM contacted [facility], who has been working with the family on arrangements throughout the day. Yousuf will be notified again when the family is ready, and at that time Yousuf will come to [facility] to transport the baby to the home. Per report, Jahaira and Tomas have named their daughter Bibiana; they have two other children at home who are 3 and 7 years old. They are appropriately grieving the loss of their child, and have been surrounded by family today who are very supportive. Jahaira's RN asked about resources for grief support; CM reached out to JAVIER Wright at [facility] for support and resources. CM will continue to follow. Social Determinants of Health Screening Will the Patient Participate in the Screening?: Unable to obtain
--- NOTE | 2025-03-12 18:55 | NUR.NOTE ---
Nursing Note: bereavement education provided throughout the day. case management came to unit for paperwork needs. 1733 mom requested be picked up by home, RN called home at 1734, 1735 case management called upstairs to confirm paperwork before left, 1749 home on the unit, 1753 infant leaving with home. case management will return tomorrow for counseling resources for family
[2025-03-12] MEDS: Naloxone 0.4 MG/ML VIAL IVP (19:52)
[2025-03-12] MEDS: Normal Saline Flush 10 ML SYR IVP (20:58)
[2025-03-12] MEDS: Zolpidem 5 MG TAB 10 MG PO (20:59)
[2025-03-13] VITALS: RESP 18
[2025-03-13 01:34] VITALS: BP 104/66; PULSE 89; RESP 18; O2SAT 98
[2025-03-13] MEDS: Ketorolac 15 MG/ML VIAL IVP ×2 (03:05→08:43)
[2025-03-13] MEDS: Normal Saline Flush 10 ML SYR IVP (03:06)
[2025-03-13] MEDS: Acetaminophen 325 MG TAB 650 MG PO ×4 (06:22→18:20)
[2025-03-13] MEDS: oxyCODONE 5 MG TAB PO ×4 (06:24→18:20)
[2025-03-13 06:25] VITALS: BP 111/75; PULSE 96; RESP 18; TEMP 36.6; O2SAT 98
[2025-03-13 07:15] LABS: Abs Immature Grans 0.03 10^3/uL (0.0-0.06); HCT 28.8 % (36.0-46.0); Immature Grans % 0.4 %; MCH 31.2 pg (27.0-33.0); MCHC 33.7 % (32.0-36.0); MCV 93 fL (80-95); MPV 10.3 fL (8.0-11.0); Platelet Count 152 10^3/uL (130-400); RBC 3.11 10^6/uL (3.93-5.22); RDW 13.1 % (11.7-14.6); RDW-SD 43.6 fL; WBC 8.31 10^3/uL (4.4-10.8)
[2025-03-13 07:16] LABS: HGB 9.7 g/dL (11.2-15.7)
[2025-03-13 08:00] VITALS: BP 121/75; PULSE 94; TEMP 37
--- NOTE | 2025-03-13 09:15 | W.PM.OBPNV1 ---
Date of service: 03/13/25 Time of Service: : Assessment and Plan Assessment and plan (1) Status post repeat low transverse section: Status: Resolved Assessment and plan: Patient is postoperative day #1 status post repeat low-transverse delivery with appendectomy. Patient had a 28-week demise. Today, she is from a physical standpoint doing well. Hemoglobin is 9.7. Vital signs are stable. Urine output is appropriate. She will have her Pompa catheter removed, IV removed, ambulate, shower. From an emotional standpoint, she is grieving appropriately. Support given. Anticipate discharge home tomorrow if stable. (2) Status post appendectomy: Status: Acute (3) demise, greater than 22 weeks, antepartum, single gestation: Status: Acute Subjective Subjective Interval history: Patient seen and examined this morning. Overall doing well. She has had a myriad of support people and conversations regarding her emotion. From a physical standpoint, she is doing reasonably well. Her vital signs are stable, she is afebrile. Her urine output at this point is adequate. She did have a significant drop in her hemoglobin to 9.7. She is asymptomatic from this. We did conversation regarding increasing her activity, removing her Pompa catheter, and her IV. She will continue to ambulate. She is tolerating regular diet and passing flatus. Her pain is more intense today than yesterday, though her spinal has worn off. Will continue to work on pain control. Exam Physical Exam Vital signs: Temp Pulse Resp BP Pulse Ox 98.6 F 94 H 18 121/75 98 03/13/25 08:00 03/13/25 08:00 03/13/25 06:25 03/13/25 08:00 03/13/25 06:25 Vital Signs Reviewed: Yes HEENT Exam HEENT Exam: Normal Neck Exam Neck Exam: Normal Respiratory Exam Respiratory Exam: Normal Cardiovascular Exam Cardiovascular Exam: Normal Abdominal Exam Abdomen: Tender Comments: Mepilex dressing in place, clean dry, intact. Fundal Exam Fundus: Below Umbilicus and Firm Extremities Exam Extremity Exam: Normal and Edema (Minimal); negative Calf Tenderness Skin Exam Skin Exam: Normal Neurological Exam Neurological Exam: Normal Psychiatric Exam Psychiatric Exam: Normal (Grieving appropriately) Results Hemoglobin/Hematocrit: Hgb 9.7 g/dL (11.2-15.7) L D 03/13/25 06:00 Hct 28.8 % (36.0-46.0) L 03/13/25 06:00 Abnormal Lab Findings: Abnormal Labs 03/13/25 06:00 RBC 3.11 L Hgb 9.7 L D Hct 28.8 L Absolute Neutrophils 6.86 H Absolute Lymphocytes 0.90 L
--- NOTE | 2025-03-13 11:35 | W.PM.PROGNOT ---
Date of Service Date of service: 03/13/25 Time of Service: 11:44 Assessment and Plan Assessment and plan (1) Status post appendectomy: Status: Acute Assessment and plan: Patient is a 34-year-old female who is postop day 1 status post delivery for demise and appendectomy given concern for intraoperative finding of possible early acute appendicitis. She is recovering as expected this morning. She remains afebrile and hemodynamically stable. She has ambulated and is tolerating a diet. She has no concerns at this time regarding the appendectomy portion of the procedure. Discussed with her the intraoperative findings as well as the procedure itself. All of her questions were answered. Also discussed with her signs and symptoms for which to be concerned postoperatively regarding appendectomy. She will follow-up with obstetrics team. Please contact the general surgery team if further questions or concerns as she continues to recover. (2) Appendicitis: Status: Acute Subjective Subjective Interval history since last seen: States she is doing okay this morning. She did have some questions regarding her appendix and diagnosis. She notes they are working on pain control. Per nursing she has been tolerating regular diet and ambulating. Exam Narrative Exam Narrative: General: No acute distress. Skin: Good turgor, no visible rashes or lesion HEENT: Normocephalic, atraumatic, no visible masses, neck supple CV: Regular rate Lungs: Bilateral equal chest rise, non-labored breathing Extremities: Warm, well perfused Neurologic: No focal deficits Psychiatric: Alert, appropriate mood and affect Objective Last Vital Signs Temp 37.0 C 03/13/25 08:00 Pulse 94 H 03/13/25 08:00 Resp 18 03/13/25 06:25 BP 121/75 03/13/25 08:00 Pulse Ox 98 03/13/25 06:25 Laboratory Results - last 24 hr 03/13/25 06:00 WBC 8.31 RBC 3.11 L Hgb 9.7 L D Hct 28.8 L MCV 93 MCH 31.2 MCHC 33.7 RDW 13.1 Plt Count 152 MPV 10.3 Immature Gran % 0.4 Neutrophils % 82.6 Lymphocytes % 10.8 Monocytes % 4.7 Eosinophils % 1.3 Basophils % 0.2 Nucleated RBC % 0.0 Absolute Neutrophils 6.86 H Absolute Lymphocytes 0.90 L Absolute Monocytes 0.39 Absolute Eosinophils 0.11 Absolute Basophils 0.02 Time Spent with Patient Time Spent with Patient: <25 minutes Time was spent: preparing to see the patient(eg.review tests), obtaining and/or reviewing separately otained hiistory and counseling the patient
[2025-03-13 17:00] VITALS: BP 126/75; PULSE 101; RESP 20; TEMP 36.9; O2SAT 100
[2025-03-13] MEDS: Docusate Sodium 100 MG CAP PO (18:29)
[2025-03-13 20:30] VITALS: BP 124/74; PULSE 98; RESP 17; TEMP 36.8; O2SAT 100
[2025-03-13] MEDS: Zolpidem 5 MG TAB 10 MG PO (21:22)
[2025-03-13] MEDS: Ibuprofen 600 MG TAB PO (21:22)
[2025-03-14 06:00] VITALS: BP 128/72; PULSE 82; RESP 17; TEMP 36.6; O2SAT 99
[2025-03-14] MEDS: Docusate Sodium 100 MG CAP PO (06:10)
[2025-03-14] MEDS: Acetaminophen 325 MG TAB 650 MG PO ×2 (06:10→11:13)
[2025-03-14] MEDS: Ibuprofen 600 MG TAB PO ×2 (06:10→11:13)
[2025-03-14] MEDS: oxyCODONE 5 MG TAB PO ×2 (06:10→11:14)
[2025-03-14 07:30] VITALS: BP 117/79; PULSE 85; RESP 12; TEMP 36.7
--- NOTE | 2025-03-14 09:01 | W.PM.OBPNV1 ---
Date of service: 03/14/25 Time of Service: 09:01 Assessment and Plan Assessment and plan (1) Status post appendectomy: Status: Acute (2) demise, greater than 22 weeks, antepartum, single gestation: Status: Acute (3) Status post repeat low transverse section: Status: Resolved Assessment and plan: Postop day 3. Doing well physically. Emotionally stable. Will transition to home. Follow-up in 1, 2, 6 weeks. Support given. Prescriptions with pharmacy. Subjective Subjective Interval history: Patient seen and examined this morning. Physically and emotionally doing well. She has plenty of support in place for grief and counseling. She is anticipating having a service with her family on Tuesday for her daughter. Her pain is well-controlled. She slept well last night. We discussed precautions at home and expected activities. Exam Physical Exam Vital signs: Temp Pulse Resp BP Pulse Ox 98.1 F 85 12 117/79 99 03/14/25 07:30 03/14/25 07:30 03/14/25 07:30 03/14/25 07:30 03/14/25 06:00 Vital Signs Reviewed: Yes Constitutional Constitutional: no acute distress HEENT Exam HEENT Exam: Normal Neck Exam Neck Exam: Normal Respiratory Exam Respiratory Exam: Normal Cardiovascular Exam Cardiovascular Exam: Normal Abdominal Exam Abdomen: Tender Comments: Mepilex clean, dry, intact. Fundal Exam Fundus: Below Umbilicus and Firm Extremities Exam Extremity Exam: Normal; negative Calf Tenderness Results Hemoglobin/Hematocrit: Hgb 9.7 g/dL (11.2-15.7) L D 03/13/25 06:00 Hct 28.8 % (36.0-46.0) L 03/13/25 06:00 Abnormal Lab Findings: Abnormal Labs 03/13/25 06:00 RBC 3.11 L Hgb 9.7 L D Hct 28.8 L Absolute Neutrophils 6.86 H Absolute Lymphocytes 0.90 L
--- NOTE | 2025-03-14 09:04 | DSE_ITS ---
Date of service: 03/14/25 Time of Service: 09:04 DS: Diagnosis Discharge Diagnosis (1) Status post appendectomy: Status: Acute Asessment and Plan: Appendicitis noted at the time of . General surgery performed intra operative appendectomy (2) demise, greater than 22 weeks, antepartum, single gestation: Status: Acute Asessment and Plan: Patient had a demise at 28 weeks. She declined trial of labor. She has had 2 previous deliveries. She underwent a repeat section for demise. She had an uncomplicated course. (3) Status post repeat low transverse section: Status: Resolved Discharge Plan Disposition Patient Disposition: Home Condition: Good Discharge Details Reason For Visit: 28 4/7 weeks EGA IUFD r/o labor Admit Date/Time: 03/11/25 22:43 Admit Provider: Annabel Salinas Attending Provider: Annabel Salinas Primary Care Provider: Rochelle Martin [facility] Hospital Course: Patient was admitted to the center after diagnosis of a demise at 28 weeks and 3 days. She declined labor induction as she has had 2 previous deliveries. She underwent a repeat low-transverse delivery for delivery of a stillborn female at 28 weeks gestation. At the time of her surgical procedure, she was noted to have a firm appendix. Intraoperative surgical consultation was performed and general surgery performed appendectomy which was uncomplicated. She had an uncomplicated postoperative course. She had health social work professor, care management, plan for grief counseling, plan for therapy ongoing she will be discharged to home. Prescriptions are sent to the pharmacy. She will be seen back in the office in 1 week's time. Home Meds and New Rx's Prescriptions: New ibuprofen 600 mg tablet 600 mg PO Q6H PRNQty: 60 1RF oxycodone 5 mg tablet 5 mg PO TID PRNQty: 14 0RF docusate sodium [Colace] 100 mg capsule 100 mg PO BID Qty: 30 0RF zolpidem [Ambien] 10 mg tablet 10 mg PO QHS PRNQty: 7 0RF No Action Classic 28 mg iron- 800 mcg tablet PO Discharge Instructions Additional Instructions: Follow-up with Dr. Maciel 03/19/2025 Activity:: Activity as Tolerated Equipment/Supplies:: No Equipment Needed Diet:: As Tolerated OB:DS Summary Summary Episiotomy Description: None Laceration Description: None Laceration Extension: N/A Contraception Discussed Contraception Discussed: Yes, Gender-Baby A: Female weight: 2 lb 2.216 oz Status at Discharge Functional status at discharge: independent ambulation Overall status at discharge: patient is progressing back to baseline Mental Status: mental status grossly normal Speech and Movement: speech and movement normal Mood: irritable mood Affect: sad Exam Physical Exam Vital signs: Temp Pulse Resp BP Pulse Ox 98.1 F 85 12 117/79 99 03/14/25 07:30 03/14/25 07:30 03/14/25 07:30 03/14/25 07:30 03/14/25 06:00 Constitutional Comments: See physical exam from progress note dated 03/14/2025 [facility] All Active Problems (Updated 03/12/25 @ 10:14 by Aliza Maciel DO) Status post appendectomy (Acute) Appendicitis (Acute) demise, greater than 22 weeks, antepartum, single gestation (Acute) Nausea and vomiting (Acute) Rh negative state in antepartum period (Acute) Received RhoGAM (Acute) Medical History (Updated 03/12/25 @ 10:14 by Aliza Maciel DO) History of abnormal cervical Pap smear 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 Colposcopy 09/10/2024. ECC with no cervical biopsy. History of kidney infection Left flank pain Cervical disc herniation Migraine headache with aura Paralysis of left upper extremity Left leg weakness Hirsutism Bipolar I disorder (03/21/17) Currently no evidence of gavin or acute depression. PCOS (polycystic ovarian syndrome) Anxiety Surgical History (Updated 03/13/25 @ 09:25 by Aliza Maciel DO) History of delivery section (07/27/17) 07/25/17. PC/S. Unsuccessful IOL at 41w. MKendal Landaverde. aoc/dd. Family History Mother Depression Father , car accident at age 33. Essential hypertension Bipolar disorder Sister Asthma Grandfather Stroke Grandmother Diabetes Grandfather Prostate cancer Cancer of kidney Grandmother Parkinsons disease Social History Smoking/Tobacco Use Status: Never Second Hand Exposure: No Smoking risk assessment performed?: Yes Alcohol Intake: current Alcohol Intake frequency: holidays/special occasions only Drug use: Never Substance use type: does not use Household members: spouse, children and other Details: son Akhil Number of Children: 1 current occupation: works for [employer] Sexually active: Yes Do you think of yourself as: straight/heterosexual Current gender identity: female What is your relationship status?: Panel score (0-1 are the most socially isolated patients): 1 What type of physical activity do you participate in: regular exercise Do you feel safe at home: Yes Do you feel safe in your relationship?: Yes Female Reproductive History Menstrual control method: none History History 4 Para 2 Hx # Term Pregnancies Multiple births Hx # Pregnancies Ectopic pregnancies AB induced 1 Hx Number of Living Children 2 AB spontaneous 1 Past Pregnancies Del. Date GA/Weeks # Preg Succ Route Wgt Sex Labor Lgth Anesth esia Location [facility] 07/17/17 41 No 8 lb 11 oz Male Jorge Pemberton 03/10/22 37 No Yes 6 lb 9.[address] Turcios Delivery Date: 07/17/17 Last Updated by: Nisha Turcios M.D. IOL attempted. pitocin and ripening balloon unsuccessful. Akhil. Delivery Date: 03/10/22 Last Updated by: Thalia Segura LPN Baby name Josse DS: Data Vitals/I&O Vitals and I&O: Vital Signs Temperature 98.1 F 03/14/25 07:30 Temperature Source Oral 03/14/25 07:30 Pulse 85 03/14/25 07:30 Pulse Rhythm Regular 03/14/25 07:30 Respiratory Rate 12 03/14/25 07:30 Respiratory Depth Normal 03/13/25 20:30 Blood Pressure 117/79 03/14/25 07:30 Blood Pressure Mean 91 03/14/25 07:30 Pulse Oximetry 99 03/14/25 06:00 Oxygen Delivery Method Room Air 03/11/25 23:25 Oxygen Flow Rate 0 03/11/25 23:25 Pain Level 9 03/13/25 18:20 Intake & Output 03/13/25 03/13/25 03/14/25 11:59 23:59 11:59 Intake Total 1000 / 1000 Output Total 1150 / 1150 Balance -150 / -150 Intake: IV 1000 / 1000 Output: Urine 1150 / 1150 Other: Urine Color Yellow
== END 2025-03-14 11:30 | disposition home or self-care (01) ==
PROVIDERS: Obstetrics & Gynecology; Admitting Provider Obstetrics & Gynecology; PCP Nurse Practitioner Family; Visit Provider Obstetrics & Gynecology
PROC: (CPT 59514; principal; 2025-03-12 07:30)
DX: O36.4XX0 Maternal care for intrauterine death, not applicable or unspecified (principal); O99.62 Diseases of the digestive system complicating childbirth; K35.80 Unspecified acute appendicitis; Z37.1 Single stillbirth; O99.354 Diseases of the nervous system complicating childbirth; O99.284 Endocrine, nutritional and metabolic diseases complicating childbirth; E28.2 Polycystic ovarian syndrome; O99.344 Other mental disorders complicating childbirth; F31.9 Bipolar disorder, unspecified; O34.211 Maternal care for low transverse scar from previous cesarean delivery; N85.8 Other specified noninflammatory disorders of uterus; O26.893 Other specified pregnancy related conditions, third trimester; Z67.91 Unspecified blood type, Rh negative; Z3A.28 28 weeks gestation of pregnancy
CPT/HCPCS: 59514; 44950; 36415; 85027; 86850; 86900; 86901; 88305; 85025; 86870; 88304; 88307; J0131; J0456; J0665; J0690; J1885; J2274; J2300; J2312; J2371; J2405; J3010

== ENCOUNTER 2025-04-29 03:41 | Outpatient (CLI) | payer BC, MEDICAID, SELFPAY ==
[2025-04-29 10:21] LABS: Abs Immature Grans 0.02 10^3/uL (0.0-0.06); HCT 38.2 % (36.0-46.0); HGB 12.6 g/dL (11.2-15.7); Immature Grans % 0.4 %; MCH 29.9 pg (27.0-33.0); MCHC 33.0 % (32.0-36.0); MCV 91 fL (80-95); MPV 9.9 fL (8.0-11.0); Platelet Count 291 10^3/uL (130-400); RBC 4.21 10^6/uL (3.93-5.22); RDW 12.6 % (11.7-14.6); RDW-SD 41.1 fL; WBC 5.54 10^3/uL (4.4-10.8)
== END 2025-04-29 03:42 | disposition home or self-care (01) ==
LOC: LBO 03:41
PROVIDERS: PCP Student in an Organized Health Care Education/Training Program; Visit Provider Obstetrics & Gynecology
DX: Z01.818 Encounter for other preprocedural examination (principal)
CPT/HCPCS: 36415; 86850; 86900; 86901; 85025; 86870

== ENCOUNTER 2025-05-07 00:41 | Outpatient (CLI) | payer BC, MEDICAID, SELFPAY ==
[2025-05-07 09:44] LABS: Abs Immature Grans 0.03 10^3/uL (0.0-0.06); HCT 36.8 % (36.0-46.0); HGB 12.0 g/dL (11.2-15.7); Immature Grans % 0.6 %; MCH 29.3 pg (27.0-33.0); MCHC 32.6 % (32.0-36.0); MCV 90 fL (80-95); MPV 10.1 fL (8.0-11.0); Platelet Count 239 10^3/uL (130-400); RBC 4.09 10^6/uL (3.93-5.22); RDW 12.7 % (11.7-14.6); RDW-SD 41.7 fL; WBC 4.99 10^3/uL (4.4-10.8)
== END 2025-05-07 00:42 | disposition home or self-care (01) ==
LOC: LBO 00:41
PROVIDERS: PCP Student in an Organized Health Care Education/Training Program; Visit Provider Obstetrics & Gynecology
DX: Z01.818 Encounter for other preprocedural examination (principal)
CPT/HCPCS: 36415; 86850; 86900; 86901; 85025; 86870

== ENCOUNTER 2025-05-08 07:52 | Day surgery (SDC) | payer BC, MEDICAID, SELFPAY ==
[2025-05-08 08:23] VITALS: BP 112/73; PULSE 76; RESP 18; TEMP 36.7; O2SAT 100
[2025-05-08] MEDS: Lactated Ringers 1,000 ML 125 ML IV (09:07)
--- NOTE | 2025-05-08 09:26 | W.ANESPRE ---
General Info Date of Service Date Performed: 05/08/25 Height: 5 ft 3 in Weight: 77.6 kg Body Mass Index (BMI): 30.3 Surgical Procedure: Operation Date: 05/08/25 10:10 Proposed Procedure Side Surgeon p Insertion of IUD Aliza Maciel DO Meds Allergies and Home Medications Allergies Allergy/AdvReac Type Severity Reaction Status Date / Time [facility] Allergy Mild unsure Verified 05/08/25 08:39 Home Medication Medication Instructions Recorded tirzepatide (weight loss) 5 mg/0.5 5 mg subcut .weekly 04/29/25 mL subcutaneous pen injector ([employer]) Current Visit Medications: Current Medications Generic Name Dose Route Start Last Admin Trade Name Freq PRN Reason Stop Dose Admin Ringer's Solution 1,000 mls @ 125 mls/hr 05/08/25 06:00 05/08/25 09:07 IV 05/08/25 23:59 125 mls/hr INFUSION DOM Administration IV Miscellaneous Supplies 1 each 05/08/25 06:00 Iv Access IV 05/08/25 23:59 DIRECTED DOM Sodium Chloride 0 ml 05/08/25 06:00 Normal Saline Flush 10 Ml Syr IV 05/08/25 23:59 PRN PRN Sodium Chloride 0 ml 05/08/25 06:00 Normal Saline 10 Ml Vial IJ 05/08/25 23:59 DIRECTED PRN Sterile Water 0 ml 05/08/25 06:00 Water,Injection,Sterile 10 Ml Vial IJ 05/08/25 23:59 DIRECTED PRN PFSH Active Problems Active Problems: Problem Status Onset Code Status post appendectomy Acute Z90.49 Nausea and vomiting Acute R11.2 Medical History Medical History Rh negative state in antepartum period Received RhoGAM History of abnormal cervical Pap smear 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 Colposcopy 09/10/2024. ECC with no cervical biopsy. History of kidney infection Left flank pain Cervical disc herniation Migraine headache with aura Paralysis of left upper extremity Left leg weakness Hirsutism Bipolar I disorder (03/21/17) Currently no evidence of gavin or acute depression. PCOS (polycystic ovarian syndrome) Anxiety Surgical History Surgical History History of delivery section (07/27/17) 07/25/17. PC/S. Unsuccessful IOL at 41w. MKendal Landaverde. aoc/dd. Tobacco Smoking/Tobacco Use Status: Never Passive smoking exposure: No Second hand exposure: No Alcohol Alcohol Intake: current Alcohol intake frequency: holidays/special occasions only Substance Use Substance use: Never Substance use type: does not use Prental History History 4 Para 2 Hx # Term Pregnancies Multiple births Hx # Pregnancies Ectopic pregnancies AB induced 1 Hx Number of Living Children 2 AB spontaneous 1 Past Pregnancies Del. Date GA/Weeks # Preg Succ Route Wgt Sex Labor Lgth Anesthesia Location [facility] 07/17/17 41 No 3940.584 g Male Tam 03/10/22 37 No Yes 2990.[address] Turcios 03/11/25 28 No Female Delivery Date: 07/17/17 Last Updated by: Nisha Turcios M.D. IOL attempted. pitocin and ripening balloon unsuccessful. Akhil. Delivery Date: 03/10/22 Last Updated by: Thalia Segura LPN Baby name [place] Vital Signs and Lab Results Vital Signs Most Recent Vital Signs in EMR: Most Recent Vital Signs Temp Pulse Resp BP Pulse Ox 36.7 C 76 18 112/73 100 05/08/25 08:23 05/08/25 08:23 05/08/25 08:23 05/08/25 08:23 05/08/25 08:23 Point of Care Results Point of Care Results: POC- Test(urine) Negative 05/08/25 08:46 Lab Results Blood Type / Crossmatch: Antibody Screen POSITIVE 05/07/25 Complete Blood Count: WBC, (4.4-10.8) 4.99 10^3/uL 05/07/25, 09:15 RBC, (3.93-5.22) 4.09 10^6/uL 05/07/25, 09:15 Hgb, (11.2-15.7) 12.0 g/dL 05/07/25, 09:15 Hct, (36.0-46.0) 36.8 % 05/07/25, 09:15 Plt Count, (130-400) 239 10^3/uL 05/07/25, 09:15 Imaging and Studies Imaging and Studies Study information below may be from another EMR and interpreted by another provider. Please see original notes in EMR for more complete details. EKG Summary: 06/10/21 Conclusion Sinus rhythm...normal P axis, V-rate 60- 99 Stress Test Summary: 09/25/18 negative stress Anesthesia Assessment and Plan Anesthesia History Personal History: No History of Anesthesia Complications Family History: No Family History of Anesthesia Complications Exercise Tolerance Exercise Tolerance: Metabolic Equivalents>4 Pertinent Negatives Pertinent Negatives: No Symptoms of GERD, No Major Cardiovascular Symptoms or Complaints, No Major Pulmonary Symptoms or Complaints and No History of CVA/TIA Cardiac & Pulmonary Exam Cardiac Exam: Normal S1/S2 Heart Sounds Pulmonary Exam: Clear Bilateral Breath Sounds Implantable Cardiac Device Does patient have a Pacemaker or an ICD?: No Airway Exam Known Difficult Airway: No Mallampati Class: 1 Mouth Opening: Normal (> 3cm) Thyromental Distance: Greater than 3 cm Neck Range of Motion: Full ROM Neck Circumference: Normal Teeth Condition: Normal Dentition ASA Classification ASA Score: ASA 2 Emergency Case?: No NPO Status NPO Status: NPO Clears >2 hours, Solids >8 hours Status Status: Negative HCG Anesthesia Plan Resuscitation Status: Full Code Anesthesia Technique: General Anesthesia Airway Planned: Natural Airway Monitors Used: Standard Monitors Preoperative Comments:: Versed prior to OR
[2025-05-08 09:27] VITALS: BMI 30.3
--- NOTE | 2025-05-08 10:29 | W.PM.OP ---
Operative Note Operative Note PRE-OP DIAGNOSIS: Contraceptive POST-OP DIAGNOSIS: same PROCEDURE: Insertion of Mirena intrauterine device under anesthesia with ultrasound guidance SURGEON: Aliza Maciel ANESTHESIA TYPE: General:No Airway Refer to Anesthesia Record ESTIMATED BLOOD LOSS: 0 PATHOLOGY: none sent Implants: Mirena IUD Lot number:[id number] Expiration: 03/27/2027 Indications: Contraceptive management Findings: Normal-appearing uterus, midline, mobile, uterus sounded to 8 cm. Successful placement of Mirena IUD system Procedure Description: After full informed consent was obtained, patient significant surgery later running. She was placed in the modified dorsolithotomy position in [facility]. Ultrasound was used to evaluate the uterus. A speculum inserted into the vaginal vault. Cervix cleansed with Betadine. Uterus sounded to 8 cm. Under direct visualization with ultrasound guidance, IUD was inserted to the fundus and deployed. Position checked and appropriately placed at the fundus. Strings cut to 3 cm. Speculum was removed. Patient woke from anesthesia and was returned to the same-day surgical area in stable condition. Date of Procedure: 05/08/25
[2025-05-08 10:33] VITALS: BP 101/72; PULSE 76; RESP 16; TEMP 36.5; O2SAT 100
[2025-05-08 11:00] VITALS: BP 102/68; PULSE 65; RESP 16; TEMP 36.4; O2SAT 99
--- NOTE | 2025-05-08 11:15 | W.ANESPOSTOP ---
Postoperative Evaluation Date, Time and Location Date Performed: 05/08/25 Time Performed: 11:15 Patient Location: Day Surgery Unit Vital Signs Most Recent Imported Vital Signs: Most Recent Vital Signs Temp Pulse Resp BP Pulse Ox 36.5 C 76 16 101/72 100 05/08/25 10:33 05/08/25 10:33 05/08/25 10:33 05/08/25 10:33 05/08/25 10:33 Pain Score Most Recent Pain Score: Most Recent Pain Score Pain Level 0 05/08/25 10:33 Assessment Mental Status: Awake (Alert & Oriented to Patient Baseline) Airway and Respiratory Function: Patent airway with normal (patient baseline) respiratory exam Cardiovascular Function: Hemodynamically Stable Hydration Status: Adequately Hydrated Nausea & Vomiting: No Nausea or Vomiting Pain: Pt. Denies Any Pain Peripheral Nerve Block: Patient did not receive a nerve block
== END 2025-05-08 11:45 | disposition home or self-care (01) ==
PROVIDERS: PCP Student in an Organized Health Care Education/Training Program; Visit Provider Obstetrics & Gynecology
PROC: (CPT 58300; principal; 2025-05-08 10:00)
DX: Z30.014 Encounter for initial prescription of intrauterine contraceptive device (principal)
CPT/HCPCS: 58300; 81025; J1885; J2003; J2250; J2405; J2704